=== PATIENT | male | born 1955 | race Caucasian/White ===

== ENCOUNTER 2017-11-14 18:44 | Inpatient (IN) ==
[2017-11-14] MEDS ORDERED: Ondansetron 4 MG/2 ML VIAL IVP ONE (19:03)
[2017-11-14] MEDS ORDERED: 0.9 % Sodium Chloride 1,000 ML IVC ONE (19:03)
[2017-11-14 19:29] LABS: Hemoglobin 10.1 g/dL (12.9-16.9)
[2017-11-14 19:30] LABS: Hematocrit 31.8 % (37.5-50.1); Mean Corpuscular HGB Conc 31.8 g/dL (31.6-35.5); Mean Corpuscular Hemoglobin 29.7 pg (28.0-33.3); Mean Corpuscular Volume 93.5 fL (83.0-100.0); Mean Platelet Volume 10.3 fL (9.4-12.4); Monocytes # 1.1 K/mcL (0.0-1.3); Platelet Count 177 K/mcL (140-400); Red Cell Distribution Width 14.6 % (11.5-14.5)
--- NOTE | 2017-11-14 19:32 | Emergency Department Note ---
Addendum entered and electronically signed by Jeremias Kaye DO 11/14/17 21:42: We did a repeat EKG this was done at 2141 review by myself and the attending shows normal sinus rhythm at a rate of 79, MO interval 180, QRS 96, QTC 425 with a leftward axis. No acute ST changes, no acute T-wave abnormalities, no signs of any hypertrophy or heart strain as his heart block, no signs of WPW/ Brugada syndrome. No old EKG to compare with. After looking back at previous troponins this is actually the best the troponin is ever been is previous one was 19.0 1 year ago. We are still treating him with aspirin. Addendum entered and electronically signed by Jeremias Kaye DO 11/14/17 21:35: We were called back and the troponin actually was 1.66 due to this we will start patient on aspirin. There were no EKG changes. Original Note: Disposition Clinical Impression: SIRS (systemic inflammatory response syndrome), CKD (chronic kidney disease), stage III Nausea & vomiting Qualifiers: Vomiting type: unspecified Vomiting Intractability: unspecified Qualified Code( s): R11.2 - Nausea with vomiting, unspecified Fever Qualifiers: Fever type: unspecified Qualified Code(s): R50.9 - Fever, unspecified Leukocytosis Qualifiers: Leukocytosis type: bandemia Qualified Code(s): D72.825 - Bandemia Disposition: Admitted As Inpatient Condition: Fair Time of Disposition: 21:34 Nausea/Vomiting/Diarrhea HPI - General Chief complaint: ED Nausea/Vomiting/Diarrhea Stated complaint: nausea, flulike symptoms Time Seen by Provider: 11/14/17 18:49 Source: patient, EMS Mode of arrival: EMS Limitations: no limitations Nursing Notes Reviewed: Yes Vital Signs Reviewed: Yes - History of Present Illness HPI Narrative: 62-year-old male presents to the emergency department complaining of nausea vomiting and fevers for one day. Patient does have history of COPD and diabetes. He has had part of his foot removed due to neuropathy. He currently has an ulcer on the bottom of his right foot that is in treated through wound care. He changes the bandages daily. They have noticed a green drainage coming out of it that is new that they do not remember. Family says that it is also foul smelling. Patient has had a fever of 102 maximum. They have been given him Tylenol which does bring the fever down. Patient presents here via EMS where he was hypoxic at 86% on room air when he arrived. Patient says that he has vomited a few times nonbilious nonbloody. They noted a fever 102. They have been given Tylenol. Patient otherwise having no complaints. Patient is not complaining of any chest pain, shortness of breath, neck pain, blurry vision , headache, back pain, abdominal pain, pain with urination, changes in bowel movements, pain or tingling in any arms or legs. He is having some generalized weakness as he feels like he is just really tired and cannot get up to move. Patient otherwise has no complaints. - Related Data Home Medications Medication Instructions Recorded Confirmed Allopurinol [Zyloprim] 100 mg PO DAILY 07/25/15 08/27/17 Citalopram Hydrobromide [Celexa] 10 mg PO HS 07/25/15 08/27/17 Ergocalciferol (VITAMIN D2) 50,000 unit PO QWEEK 07/25/15 08/27/17 [Drisdol (50,000 Unit)] Gabapentin [Neurontin] 300 mg PO BID 07/25/15 08/27/17 Insulin ASPART [NovoLOG] 8 - 22 unit SQ TIDWM 07/25/15 08/27/17 Insulin Glargine,Hum.rec.anlog 40 unit SQ BID 07/25/15 08/27/17 [Lantus Solostar] Multivitamin/Iron/Folic Acid 1 tab PO DAILY 07/25/15 08/27/17 [Centrum Complete Multivit Tab] Ranitidine HCl [Zantac] 150 mg PO BID 07/25/15 08/27/17 Albuterol Sulfate [Albuterol 2 puff IH Q4HR PRN 07/26/15 08/27/17 Inhaler] Hydrocodone/Acetaminophen [Hazen 2 tab PO BID PRN 07/26/15 08/27/17 5-325 Tablet] Budesonide/Formoterol 160/4.5 2 puff IH BID 07/24/16 08/27/17 [Symbicort 160/4.5] Hydralazine HCl 25 mg PO BID 07/24/16 08/27/17 Cyanocobalamin (B-12) [Vitamin B12] 1 ml IJ QMONTH 08/01/16 08/27/17 Cranberry Fruit Extract [Cranberry] 2,000 mg PO DAILY 08/29/16 08/27/17 Cyanocobalamin (Vitamin B-12) 2,500 mcg PO DAILY 08/29/16 08/27/17 [Vitamin B12] Metoprolol XL (24 HR) Succ [Toprol 25 mg PO DAILY 08/29/16 08/27/17 Xl] Darbepoetin [Aranesp] 40 mcg SQ Q2W 03/26/17 08/27/17 amLODIPine [Norvasc] 2.5 mg PO DAILY 10/08/17 10/08/17 Previous Rx's Medication Instructions Recorded Aspirin 81 mg PO DAILY tab.chew 08/22/16 Atorvastatin [Lipitor] 80 mg PO HS tablet 08/22/16 Ticagrelor [Brilinta] 90 mg PO BID tablet 08/22/16 Allergies Allergy/AdvReac Type Severity Reaction Status Date / Time acetaminophen Allergy See Verified 11/14/17 18:50 [From Darvocet-N] Comments Zolpidem [From Ambien] Allergy See Verified 11/14/17 18:50 Comments pregabalin [From Lyrica] AdvReac Unknown jittery, Verified 11/14/17 18:50 altered mental status propoxyphene AdvReac Unknown jittery, Verified 11/14/17 18:50 altered mental status Review of Systems: 10 point review of systems done and negative unless otherwise stated in history of present illness. All systems ED: reviewed and negative except as stated. Review of Systems: As Per HPI Past Medical History - Past Medical History Attestation: Yes The following information was validated with the patient. Medical history: Reports: arthritis, CHF, COPD, coronary artery disease, diabetes, hyperlipidemia, hypertension, myocardial infarction, peripheral artery disease, renal disease Surgical history: Reports: cholecystectomy, coronary bypass (CABG), orthopedic, other Psychiatric history: Reports: depression - Social History Smoking Status: Never smoker Smokeless Tobacco Status: No Alcohol use: Reports: none Drug use: Reports: none Physical Exam - General Limitations: no limitations General appearance: alert, in no apparent distress - Head Head exam: atraumatic, normocephalic, normal inspection - Eye Eye exam: Present: normal appearance, PERRL, EOMI - ENT ENT exam: normal exam, normal oropharynx, mucous membranes moist - Neck Neck exam: Present: normal inspection, full ROM, trachea midline - Chest Chest inspection: Present: normal inspection, symmetric chest wall rise - Respiratory Respiratory exam: Present: normal lung sounds bilaterally. Absent: respiratory distress, wheezes, accessory muscle use - Cardiovascular Cardiovascular exam: Present: regular rate, normal rhythm, normal heart sounds - Abdominal Exam Abdominal exam: Present: soft, Non-Tender, normal bowel sounds. Absent: tenderness, distention, guarding, rebound, rigidity - Expanded Lower Extremity Exam Knee exam: Present: normal inspection, full ROM Lower leg exam: Present: normal inspection, full ROM Ankle exam: Present: normal inspection, full ROM Foot/toe exam: Present: normal inspection, full ROM, other (Right foot is amputated there is a bandage that we uncovered that did show a healing ulcer there was no purulent drainage or any drainage coming out of it at this time. It was mildly swollen but no noticeable redness or tracking up the leg. It was warm to touch.) Neurovascular/Tendon exam: Present: normal capillary refill. Absent: pulse deficit, motor deficit, sensory deficit, tendon deficit - Back Exam Back exam: Present: normal inspection, full ROM. Absent: tenderness, CVA tenderness (R), CVA tenderness (L) - Neurological Exam Neurological exam: Present: alert, oriented X3 - Skin Skin exam: Present: warm, dry, intact, normal color Course Course Narrative: 62-year-old male presents to the emergency department complaining of fevers, nausea, vomiting. The patient did have a fever. He was mildly tachycardic so we started the sepsis protocol on him. Due to patient's kidney failure we did not give him 20 mix per K IV fluids. Did get a CMP, CBC, lactate with a tight lactate, blood cultures, chest x-ray, troponin, IV, 1 L IV fluids, Zofran, x- ray of the right foot, EKG. Patient is okay with this plan. Hold off on getting antibiotics since we find a source of the infection. Vital Signs Temperature 99.9 F H 11/14/17 18:46 Pulse Rate 89 11/14/17 18:46 Respiratory Rate 16 11/14/17 18:46 Blood Pressure 138/64 11/14/17 18:46 O2 Sat by Pulse Oximetry 96 11/14/17 18:46 Temperature 98.7 F 11/14/17 23:02 Pulse Rate 78 11/14/17 23:02 Respiratory Rate 16 11/14/17 23:02 Blood Pressure 126/63 11/14/17 23:02 O2 Sat by Pulse Oximetry 100 11/14/17 23:25 Oxygen Delivery Oxygen Delivery Room Air Nausea/Vomiting/Diarrhea - [facility] Narrative Medical decision making narrative: 62-year-old male presents emergency Department with fever, nausea vomiting as well as an ulcer in his right foot. X-ray did recommend possible MRI for osteomyelitis or further evaluation. Patient did have a leukocytosis with a left shift and bandemia. Due to this patient did meet Sirs criteria we did get blood cultures as well as a lactate which is not elevated. Patient did have elevated creatinine which is normal for him. The x-ray did show recommendation for possible osteomyelitis and recommended an MRI be done. Chest x-ray did show right-sided pleural effusion we will be treating him with antibiotics anyway some cases of pneumonia it is still Covered. There were no EKG changes no elevated troponin. We decided to admit the patient for further evaluation as well as start him on antibiotics we started him on Zosyn, Levaquin, vancomycin. Also given 1 L of fluids. Patient was admitted to the hospitalist service I spoke with the hospitalist Dr. Renteria agreed to admit the patient to their service. Patient is okay with this plan. She is admitted in stable condition. Chest X-Ray 11/14/17 19:00 IMPRESSION: 1. Persistent right pleural effusion with right basilar atelectasis. 2. Mildly enlarged cardiac silhouette. 3. No acute abnormality identified within the left lung. D/ / Jerman Valentine MD / Jerman Valentine MD Interpreting Provider: Jerman Valentine MD Foot X-Ray 11/14/17 19:03 IMPRESSION: 1. No radiographic evidence of osteomyelitis. Consider further assessment with dedicated MRI with contrast if there are continued clinical concerns. 2. Partial amputation of the foot. D/ / 11/14/2017 19:38:19 Reynold Edwards MD / Roberta Huntley Interpreting Provider: Reynold Edwards MD - Medical Records Medical records reviewed: Yes I reviewed the patient's medical records. - Lab Data Lab results reviewed: Yes I reviewed the patient's lab results. Result diagrams: 11/14/17 19:18 11/14/17 19:18 Lab Results 11/14/17 11/14/17 11/14/17 Range/Units 19:18 19:18 19:18 WBC 26.4 H D (4.3-11.1) K/mcL RBC 3.40 L (4.19-5.50) M/mcL Hgb 10.1 L (12.9-16.9) g/dL Hct 31.8 L (37.5-50.1) % MCV 93.5 (83.0-100.0) fL MCH 29.7 (28.0-33.3) pg MCHC 31.8 (31.6-35.5) g/dL RDW 14.6 H (11.5-14.5) % Plt Count 177 (140-400) K/mcL MPV 10.3 (9.4-12.4) fL Seg Neutrophils % 80.0 % Band Neutrophils % 12.0 H (0-4) % Lymphocytes % TNP Monocytes % 4.0 % Metamyelocytes % 2.0 H (0) % Myelocytes % 2.0 H (0) % Neutrophils # 24.3 H (1.6-8.9) K/mcL Lymphocytes # [employer] Monocytes # 1.1 (0.0-1.3) K/mcL Platelet Estimate Normal (Normal) ESR (0-10) mm/hr PT (9.4-12.1) Seconds INR APTT (26.0-36.0) Seconds Sodium 138 (136-145) mEq/L Potassium 3.7 (3.5-4.5) mEq/L Chloride 102 (98-109) mEq/L Carbon Dioxide 27 (19-29) mEq/L BUN 34 H (8-26) mg/dL Creatinine 2.85 H (0.72-1.25) mg/dL Est GFR ( Amer) 27 L (> 60) Est GFR (Non-Af Amer) 22 L (> 60) BUN/Creatinine Ratio 12 (6-26) Glucose 140 H (70-99) mg/dL Calculated Osmolality 296 (280-300) Lactic Acid 2.1 (0.5-2.2) mmol/L Calcium 9.7 (8.6-10.8) mg/dL Total Bilirubin 0.5 (0.2-1.2) mg/dL Direct Bilirubin (0.0-0.5) mg/dL Indirect Bilirubin (0.0-1.2) mg/dL AST 16 (5-34) Units/L ALT 16 (0-55) Units/L Alkaline Phosphatase 187 H (38-126) Units/L Troponin I (0-0.03) ng/mL C-Reactive Protein 114 H (Less than 5) mg/L Serum Total Protein 7.5 (6.0-8.3) g/dL Albumin 3.3 L (3.5-5.0) g/dL Globulin 4.2 H (2.4-3.5) g/dL Albumin/Globulin Ratio 0.8 L (1.1-2.2) Urine Color (Yellow) Urine Clarity (Clear) Urine pH (5.0-8.0) pH Units Ur Specific [place] (1.010-1.025) Urine Protein (Neg-Trace) mg/dL Urine Glucose (UA) (Normal) mg/dL Urine Ketones (Negative) mg/dL Urine Blood (Negative) Urine Nitrite (Negative) Urine Bilirubin (Negative) Urine Urobilinogen (Normal) mg/dL Ur Leukocyte Esterase (Negative) Urine Microscopic RBC (0-3) per hpf Urine Microscopic WBC (0-3) per hpf Ur Squamous Epith Cells (None-Few) per lpf Urine Bacteria (None-Few) per hpf Hyaline Casts (None-Few) per lpf Ur Culture Indicated? (NO) 11/14/17 11/14/17 11/14/17 Range/Units 19:18 19:35 20:56 WBC (4.3-11.1) K/mcL RBC (4.19-5.50) M/mcL Hgb (12.9-16.9) g/dL Hct (37.5-50.1) % MCV (83.0-100.0) fL MCH (28.0-33.3) pg MCHC (31.6-35.5) g/dL RDW (11.5-14.5) % Plt Count (140-400) K/mcL MPV (9.4-12.4) fL Seg Neutrophils % % Band Neutrophils % (0-4) % Lymphocytes % Monocytes % % Metamyelocytes % (0) % Myelocytes % (0) % Neutrophils # (1.6-8.9) K/mcL Lymphocytes # Monocytes # (0.0-1.3) K/mcL Platelet Estimate (Normal) ESR 124 H (0-10) mm/hr PT (9.4-12.1) Seconds INR APTT (26.0-36.0) Seconds Sodium (136-145) mEq/L Potassium (3.5-4.5) mEq/L Chloride (98-109) mEq/L Carbon Dioxide (19-29) mEq/L BUN (8-26) mg/dL Creatinine (0.72-1.25) mg/dL Est GFR ( Amer) (> 60) Est GFR (Non-Af Amer) (> 60) BUN/Creatinine Ratio (6-26) Glucose (70-99) mg/dL Calculated Osmolality (280-300) Lactic Acid (0.5-2.2) mmol/L Calcium (8.6-10.8) mg/dL Total Bilirubin 0.5 (0.2-1.2) mg/dL Direct Bilirubin 0.3 (0.0-0.5) mg/dL Indirect Bilirubin 0.2 (0.0-1.2) mg/dL AST 18 (5-34) Units/L ALT 12 (0-55) Units/L Alkaline Phosphatase 171 H (38-126) Units/L Troponin I (0-0.03) ng/mL C-Reactive Protein (Less than 5) mg/L Serum Total Protein 6.9 (6.0-8.3) g/dL Albumin 2.9 L (3.5-5.0) g/dL Globulin 4.0 H (2.4-3.5) g/dL Albumin/Globulin Ratio 0.7 L (1.1-2.2) Urine Color Yellow (Yellow) Urine Clarity Clear (Clear) Urine pH 6.0 (5.0-8.0) pH Units Ur Specific [place] 1.019 (1.010-1.025) Urine Protein >=300 H (Neg-Trace) mg/dL Urine Glucose (UA) Normal (Normal) mg/dL Urine Ketones Negative (Negative) mg/dL Urine Blood Negative (Negative) Urine Nitrite Negative (Negative) Urine Bilirubin Negative (Negative) Urine Urobilinogen Normal (Normal) mg/dL Ur Leukocyte Esterase Negative (Negative) Urine Microscopic RBC 5-15 H (0-3) per hpf Urine Microscopic WBC 0-3 (0-3) per hpf Ur Squamous Epith Cells Many H (None-Few) per lpf Urine Bacteria None Seen (None-Few) per hpf Hyaline Casts None Seen (None-Few) per lpf Ur Culture Indicated? NO (NO) 11/14/17 11/14/17 Range/Units 20:56 20:56 WBC (4.3-11.1) K/mcL RBC (4.19-5.50) M/mcL Hgb (12.9-16.9) g/dL Hct (37.5-50.1) % MCV (83.0-100.0) fL MCH (28.0-33.3) pg MCHC (31.6-35.5) g/dL RDW (11.5-14.5) % Plt Count (140-400) K/mcL MPV (9.4-12.4) fL Seg Neutrophils % % Band Neutrophils % (0-4) % Lymphocytes % Monocytes % % Metamyelocytes % (0) % Myelocytes % (0) % Neutrophils # (1.6-8.9) K/mcL Lymphocytes # Monocytes # (0.0-1.3) K/mcL Platelet Estimate (Normal) ESR (0-10) mm/hr PT 13.9 H (9.4-12.1) Seconds INR 1.3 APTT 30.2 (26.0-36.0) Seconds Sodium (136-145) mEq/L Potassium (3.5-4.5) mEq/L Chloride (98-109) mEq/L Carbon Dioxide (19-29) mEq/L BUN (8-26) mg/dL Creatinine (0.72-1.25) mg/dL Est GFR ( Amer) (> 60) Est GFR (Non-Af Amer) (> 60) BUN/Creatinine Ratio (6-26) Glucose (70-99) mg/dL Calculated Osmolality (280-300) Lactic Acid (0.5-2.2) mmol/L Calcium (8.6-10.8) mg/dL Total Bilirubin (0.2-1.2) mg/dL Direct Bilirubin (0.0-0.5) mg/dL Indirect Bilirubin (0.0-1.2) mg/dL AST (5-34) Units/L ALT (0-55) Units/L Alkaline Phosphatase (38-126) Units/L Troponin I 1.66 H* (0-0.03) ng/mL C-Reactive Protein (Less than 5) mg/L Serum Total Protein (6.0-8.3) g/dL Albumin (3.5-5.0) g/dL Globulin (2.4-3.5) g/dL Albumin/Globulin Ratio (1.1-2.2) Urine Color (Yellow) Urine Clarity (Clear) Urine pH (5.0-8.0) pH Units Ur Specific [place] (1.010-1.025) Urine Protein (Neg-Trace) mg/dL Urine Glucose (UA) (Normal) mg/dL Urine Ketones (Negative) mg/dL Urine Blood (Negative) Urine Nitrite (Negative) Urine Bilirubin (Negative) Urine Urobilinogen (Normal) mg/dL Ur Leukocyte Esterase (Negative) Urine Microscopic RBC (0-3) per hpf Urine Microscopic WBC (0-3) per hpf Ur Squamous Epith Cells (None-Few) per lpf Urine Bacteria (None-Few) per hpf Hyaline Casts (None-Few) per lpf Ur Culture Indicated? (NO) - Radiology Data Radiology results reviewed: Yes I reviewed the patient's radiology results. - EKG Data EKG attestation: Yes I reviewed and interpreted this EKG. EKG results narrative: EKG done at 1927 review myself and the attending shows sinus rhythm at a rate of 87, MO 161, QRS 12, QTc 440 with a leftward axis. There is no acute ST changes, no acute T-wave abnormalities, no signs of any heart strain or hypertrophy, no signs of heart block, no signs of WPW/Brugada syndrome. There is no old EKG to compare at this time. Attestation Statement - Attestation Attestation: I, Nba Esquivel, examined this patient and my medical decision-making was reviewed with the STATE HISTORICAL SOCIETY DIRECTOR/PA/Advanced Practice Nurse/Resident Physician. I agree with the documented findings, disposition and treatment plan as described except to the extent set forth below. 62-year-old male presents emergency Department with concerns of weakness, fatigue, nausea, generalized malaise. Patient was concerned about possible infection to the right distal lower extremity where patient has a history of amputation and infection. Patient was just cleared from wound care within the past few days however. Patient denies cough or abdominal pain or chest pain. Laboratory evaluation shows a significant elevation in the patient's white blood cells. He also has bandemia. Urinalysis does not show evidence of urinary tract infection. No obvious gas seen within the distal right lower extremity. No obvious osteomyelitis seen on x-ray. Chest x-ray shows a right pleural effusion. Troponin was elevated however patient has been significantly more elevated the past. EKG showed normal sinus rhythm with a rate of 87 with a poor baseline on initial EKG repeat EKG showed normal sinus rhythm with a rate of 79 without evidence STEMI. Patient started on antibiotics emergency department. He will be admitted to the hospital for further care and evaluation.
[2017-11-14 19:42] LABS: Albumin 3.3 g/dL (3.5-5.0); Albumin/Globulin Ratio 0.8 (1.1-2.2); Bilirubin,Total 0.5 mg/dL (0.2-1.2); Calcium 9.7 mg/dL (8.6-10.8); Globulin 4.2 g/dL (2.4-3.5); Potassium 3.7 mEq/L (3.5-4.5); Total Protein 7.5 g/dL (6.0-8.3)
[2017-11-14 19:46] LABS: Bilirubin,Urine Negative (Negative); Blood,Urine Negative (Negative); Clarity,Urine Clear (Clear); Color,Urine Yellow (Yellow); Glucose,Urine (UA) Normal (Normal); Ketones,Urine Negative (Negative); Leukocyte Esterase,Urine Negative (Negative); Nitrite,Urine Negative (Negative); Protein,Urine >=300 mg/dL (Neg-Trace); Specific Gravity,Urine 1.019 (1.010-1.025); Urobilinogen,Urine Normal (Normal)
[2017-11-14 19:48] LABS: Neutrophils # 24.3 K/mcL (1.6-8.9); Platelet Estimate Normal (Normal)
[2017-11-14 19:48] LABS: Bacteria,Urine None Seen per hpf (None-Few); Hyaline Casts,Urine None Seen per lpf (None-Few); Squamous Epithelial Cell,Urine Many per lpf (None-Few); WBC,Urine 0-3 per hpf (0-3)
[2017-11-14] MEDS ORDERED: Piperacillin/Tazobactam 3.375 GM in Water for inj. (sterile) 20 ML IVP ONE (20:29)
[2017-11-14] MEDS ORDERED: Levofloxacin 750 MG/150 ML 750 MG/150 ML BAG IVPB ONE (20:29)
[2017-11-14] MEDS ORDERED: Vancomycin 2,000 MG in D5% in Water 500 ML IVPB ONE (20:29)
[2017-11-14 21:22] LABS: Albumin 2.9 g/dL (3.5-5.0); Albumin/Globulin Ratio 0.7 (1.1-2.2); Bilirubin,Direct 0.3 mg/dL (0.0-0.5); Bilirubin,Indirect 0.2 mg/dL (0.0-1.2); Bilirubin,Total 0.5 mg/dL (0.2-1.2); Total Protein 6.9 g/dL (6.0-8.3)
[2017-11-14] MEDS ORDERED: Aspirin 81 MG TAB.CHEW PO ONE (21:42)
[2017-11-14] MEDS ORDERED: Naloxone 0.4 MG/ML INJ IVP PRN (22:14)
[2017-11-14] MEDS ORDERED: *HR* Morphine 2 MG/ML SYRINGE IVP PRN (22:14)
[2017-11-14] MEDS ORDERED: *HR* Promethazine 25 MG/ML VIAL IVP PRN (22:14)
[2017-11-14] MEDS ORDERED: *HR* Dextrose 50 % in Water (Syg) 50 ML SYRINGE IVP PRN (22:14)
[2017-11-14] MEDS ORDERED: Dextrose Gel 15 GM PO PRN ×2 (22:14)
[2017-11-14] MEDS ORDERED: D5% in Water 1,000 ML IVC PRN (22:14)
[2017-11-14] MEDS ORDERED: Ondansetron 4 MG/2 ML VIAL IVP PRN (22:14)
--- NOTE | 2017-11-14 22:30 | Internal Med History&Physical ---
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 Significant history of CAD including CABG in 2015 with reocclusion of SVG and 08/2016. Denies any chest pain, shortness of breath above baseline. However troponin is elevated at 1.66. Due to history of prior silent CO resulting in CABG cardiology was consulted. Recommendations are to place patient on heparin drip, EKGs from today sent to cardiology for further recommendations and evaluation Continue dual platelet therapy resume aspirin and statin and beta chelsie Check lipid panel, continue to trend troponins Continuous telemetry Cardio to see in the morning (3) Acute respiratory failure with hypoxia Current visit: Yes Status: Acute Presented today with acute hypoxia SPO2 85% on room air. Improved immediately with 3 L nasal cannula. Now maintains SPO2 at 94%. I am unsure as to whether or not this is a pneumonia but I am suspicious this may be a coronary event Patient is already on Levaquin and vancomycin and Zosyn for foot wound no additional antibiotics needed Chest x-ray reveals persistent right pleural effusion with right basilar atelectasis Continuous respiratory support, continue bronchodilators No need for steroids at this time as he is not wheezing (4) Nausea & vomiting Current visit: Yes Status: Acute 3-4 times starting today. Has not vomited since arrival to ED. Continue antiemetics. Does not appear acutely dehydrated, given 0.9% normal saline at 100 mL per hour for gentle rehydration Qualifiers: Vomiting type: unspecified Vomiting Intractability: unspecified Qualified Code(s): R11.2 - Nausea with vomiting, unspecified (5) Nonhealing surgical wound Current visit: Yes Status: Acute Nonhealing surgical wound on right stump following partial amputation. Patient reporting new green drainage. Cultures from last admission grew Acinetobacter. Presents today with leukocytosis with WBC 26.4 and leftward shift with bandemia. Appears to be septic. Foot wound is soft and fluid filled, loculated but not indurated. Obvious cellulitis noted. Foot x-ray reveals no osteo-myelitis Obtain wound cultures now Consult to wound care team Consult to podiatry-await further recommendations Manage pain with hydrocodone and morphine Qualifiers: Encounter type: initial encounter Qualified Code(s): T81.89XA - Other complications of procedures, not elsewhere classified, initial encounter (6) Cellulitis Current visit: Yes Status: Acute see plan above Qualifiers: Site of cellulitis: other site Qualified Code(s): L03.818 - Cellulitis of other sites (7) CKD (chronic kidney disease), stage III Current visit: Yes Status: Chronic History of CK V stage III. No significant change in serum creatinine. Recheck serum creatinine the morning (8) CAD (coronary artery disease) Current visit: Yes Status: Chronic Extensive CAD including stents and prior CABG and reoccluded SVG shortly after CABG 08/16 At that time is recommended to platelet therapy for at least 1 year Discussed risk factor modifications to reduce future events Resume beta chelsie, but aspirin, statin, brilinta Qualifiers: Coronary Disease-Associated Artery/Lesion type: [place] artery [place] vs. transplanted heart: [place] heart Associated angina: with unstable angina Qualified Code(s): I25.110 - Atherosclerotic heart disease of [place] coronary artery with unstable angina pectoris (9) Diabetes Current visit: Yes Status: Chronic Start low-dose sliding scale insulin coverage with before meals and at bedtime Accu-Cheks and diabetic diet. 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 No additional prophylaxis needed Internal Medicine - H&P: HPI Chief complaint: N/V with fevers for the last 24 hours and increasing drainage of RT stump Admitted From: Home Plans for Post Hospital Care: Home History of present illness: Mr. Levine is a 62 year old male with PMH of CHF, COPD, CAD, DM, HLD, HTN, CO , PVD, CKD. He presents today with a one-day history of nausea and non-bilious nonbloody vomiting and fevers. The patient reports that this morning he felt fatigued and weak. He noted he had a fever 103.0 which she has taken Tylenol and fever has decreased. Throughout the day reported that he has vomited 3-4 times. He was recently admitted to [facility] for wound care of a chronic wound on stump of right foot. He reports that he had a partial amputation of his right foot due to neuropathy. Since then he has had an ulcer that is slow to heal. Son is at bedside and reports he has noticed an increase in green drainage from the foot. He denies any chest pain, abdominal pain, diarrhea, dysuria. Just admitting to generalized weakness, nausea vomiting fevers and shortness of breath no worse than baseline. Workup in the ED revealed leukocytosis with WBCs 26.4 with left shift and bandemia. Past Med Surg Social Fam HX - Past Medical History Medical history: arthritis, CHF, COPD, coronary artery disease, diabetes, hyperlipidemia, hypertension, myocardial infarction, peripheral artery disease, renal disease Psychiatric history: depression - Past Surgical History Surgical History: cholecystectomy, coronary bypass (CABG), orthopedic, other - Social History Smoking Status: Never smoker Smokeless Tobacco Status: No Alcohol use: none Drug use: none - Family History Father Living Status: Hx Family Cardiac Disorders: Yes Hx Family Respiratory Disorders: Yes (COPD) Hx Family Cancer: No Hx Family GI Disorders: No Hx Family Endocrine Disorder: No Hx Family Neuromuscular Disorders: No Hx Family Neurologic Disorders: No Hx Family HEENT Disorders: No Hx Family Autoimmune Disorders: No Internal Medicine - H&P: Meds Allopurinol [Zyloprim] 100 mg PO DAILY 07/25/15 [History] Citalopram Hydrobromide [Celexa] 10 mg PO HS 07/25/15 [History] Ergocalciferol (VITAMIN D2) [Drisdol (50,000 Unit)] 50,000 unit PO QWEEK [History] Gabapentin [Neurontin] 300 mg PO BID 07/25/15 [History] Insulin ASPART [NovoLOG] 8 - 22 unit SQ TIDWM 07/25/15 [History] Insulin Glargine,Hum.rec.anlog [Lantus Solostar] 40 unit SQ BID 07/25/15 [ History] Multivitamin/Iron/Folic Acid [Centrum Complete Multivit Tab] 1 tab PO DAILY [History] Ranitidine HCl [Zantac] 150 mg PO BID 07/25/15 [History] Albuterol Sulfate [Albuterol Inhaler] 2 puff IH Q4HR PRN 07/26/15 [History] Hydrocodone/Acetaminophen [[place] 5-325 Tablet] 2 tab PO BID PRN 07/26/15 [ History] Budesonide/Formoterol 160/4.5 [Symbicort 160/4.5] 2 puff IH BID 07/24/16 [ History] Hydralazine HCl 25 mg PO BID 07/24/16 [History] Cyanocobalamin (B-12) [Vitamin B12] 1 ml IJ QMONTH 08/01/16 [History] Aspirin 81 mg PO DAILY tab.chew 08/22/16 [Rx] Atorvastatin [Lipitor] 80 mg PO HS tablet 08/22/16 [Rx] Ticagrelor [Brilinta] 90 mg PO BID tablet 08/22/16 [Rx] Cranberry Fruit Extract [Cranberry] 2,000 mg PO DAILY 08/29/16 [History] Cyanocobalamin (Vitamin B-12) [Vitamin B12] 2,500 mcg PO DAILY 08/29/16 [History ] Metoprolol XL (24 HR) Succ [Toprol Xl] 25 mg PO DAILY 08/29/16 [History] Darbepoetin [Aranesp] 40 mcg SQ Q2W 03/26/17 [History] amLODIPine [Norvasc] 2.5 mg PO DAILY 10/08/17 [History] 3 Allergy/AdvReac Type Severity Reaction Status Date / Time acetaminophen Allergy See Verified 11/14/17 18:50 [From Darvocet-N] Comments Zolpidem [From Ambien] Allergy See Verified 11/14/17 18:50 Comments pregabalin [From Lyrica] AdvReac Unknown jittery, Verified 11/14/17 18:50 altered mental status propoxyphene AdvReac Unknown jittery, Verified 11/14/17 18:50 altered mental status All Systems PM: A 10-system review of systems was performed and is negative for pertinent findings except as documented above in the HPI. - Constitutional Constitutional: no chills, no fever(s), no night sweats - EENT Eyes: no change in vision, no discharge, no pain, no photophobia Ears: no ear discharge, no ear pain, no tinnitus Nose, mouth and throat: no dysphagia, no nasal discharge, no neck pain, no sore throat - Cardiovascular Cardiovascular ROS IM: no chest pain, no diaphoresis, no dyspnea, no lightheadedness, no palpitations, no syncope - Respiratory Respiratory: no cough, no dyspnea, no wheezing, no excessive phlegm production - Gastrointestinal Gastrointestinal: nausea, vomiting, no abdominal pain, no diarrhea, no hematemesis, no hematochezia, no melena - Musculoskeletal Musculoskeletal ROS IM: no numbness, no tingling - Integumentary Integumentary IM: as per HPI, non-healing lesions, no rash, no unusual bruising - Neurological Neurological ROS: no confusion, no convulsions, no focal weakness, no numbness, no tingling, no tremor(s) - Hematologic/Lymphatic Hematologic/Lymphatic: no easy bruising - Constitutional Vitals: Temp Pulse Resp BP Pulse Ox 99.9 F H 89 18 127/63 96 11/14/17 18:46 11/14/17 18:46 11/14/17 21:23 11/14/17 21:23 11/14/17 18:46 General appearance: Present: A&O X 2, no acute distress, obese - Head Head exam: Present: atraumatic, normocephalic - Neck Neck exam general surgery: Present: supple, trachea midline. Absent: lymphadenopathy - Respiratory Respiratory exam: Present: decreased breath sounds, CTAB, prolonged expiratory phase. Absent: accessory muscle use, rales, rhonchi, wheezes, tachypnea - Cardiovascular Cardiovascular exam: Present: RRR, +S1, +S2. Absent: diastolic murmur, gallop, rubs, systolic murmur - GI/Abdominal GI/Abdominal exam: Present: normal bowel sounds, soft, no peritoneal signs. Absent: distended, tenderness - Extremities Exam Extremities exam: Absent: calf tenderness, cyanotic, pedal edema - Expanded Lower Extremities Exam 1 - STAGE 3 ULCER WITH MINIMAL SERROUS DRAINAGE. - Neurological Exam Neurological exam: Present: alert. Absent: facial droop, speech deficit Internal Med - H&P Results - Labs CBC & Chem 7: 11/14/17 19:18 11/14/17 19:18 - EKG Data -: EKG Interpreted by Myself EKG shows normal: sinus rhythm Rate: normal - EKG Data Prior EKG available for review: yes When compared to previous EKG: there is no significant change EKG comments: 11/14/17 23:08 Normal sinus rhythm rate of 87 - Diagnostic Studies Other Images Status: image reviewed by me Additional comments: No osteomyelitis Chest x-ray Status: image reviewed by me Additional comments: Right pleural effusion with right basilar atelectasis <Andrew Johns - Last Filed: 11/15/17 03:11> Date of Encounter: 11/14/17 Internal Medicine - H&P: HPI History of present illness: Mr. Levine is a 62 year old male All Systems PM: A 10-system review of systems was performed and is negative for pertinent findings except as documented above in the HPI. - Constitutional Vitals: Temp Pulse Resp BP Pulse Ox 98.7 F 78 16 126/63 100 11/14/17 23:02 11/14/17 23:02 11/14/17 23:02 11/14/17 23:02 11/14/17 23:25 Internal Med - H&P Results - Labs CBC & Chem 7: 11/14/17 19:18 11/14/17 19:18 - Attending Attestation I have personally performed a face to face evaluation on this patient. I have reviewed and agree with the care plan provided by MAIRA May . History and Exam by me shows: Mr. Levine is a 62 year old male with PMH of CHF, COPD, CAD, DM, HLD, HTN, CO , PVD, CKD. He presents today with a one-day history of nausea and non-bilious non bloody vomiting and fevers. The patient reports that this morning he felt fatigued and weak. He noted he had a fever 103.0 which she has taken Tylenol and fever has decreased. Throughout the day reported that he has vomited 3-4 times. He does have mild erythema in Rt leg and non healing ulcer over Rt foot stump..He denied any CP/ SOB Gen: A, A, O x 3 Chest: Diminished BS b/l, no crackles, no rales Heart: S1 S2 + RRR Ext: soft, loculated fluid collection over Rt foot stump a/p 1. Sepsis with Rt foot abscess and Rt leg cellulites 2. Non healing ulcer over Rt leg Empirical abx Levaquin + Zosyn + Vanco Will consult community support associate in AM 3. Acute initial NSTEMI No acute ischemic EKG changes Troponin significantly elevated mostly demand ischemia with sepsis Card Dr. Shirley requested to start him on heparin gtt 4. CKD-3 stable
[2017-11-14] MEDS ORDERED: Vancomycin 2,000 MG in D5% in Water 250 ML IVPB SCH (23:00)
[2017-11-14] MEDS ORDERED: *HR* Heparin 5,000 UNIT/ML VIAL IVP PRN (23:02)
[2017-11-14] MEDS ORDERED: *HR* Heparin 5,000 UNIT/ML VIAL IVP ONE (23:02)
[2017-11-14 23:20] LABS: INR 1.3; Prothrombin Time 13.9 Seconds (9.4-12.1)
[2017-11-14 23:23] LABS: Activated Partial Thrombo Time 30.2 Seconds (26.0-36.0)
[2017-11-15] MEDS ORDERED: Piperacillin/Tazobactam 3.375 GM in D5% in Water (Mini-Bag+) 100 ML IVPB SCH
[2017-11-15] MEDS ORDERED: Piperacillin/Tazobactam 3.375 GM/200 ML BAG IVPB SCH
[2017-11-15] MEDS: 0.9 % Sodium Chloride 1,000 ML IVC SCH (00:28)
[2017-11-15] MEDS: Heparin 25,000 UNIT/500 ML D5W 25,000 UNIT/500 ML BAG IVC SCH ×2 (01:01→23:14)
[2017-11-15] MEDS: Insulin LISPRO 300 UNITS/3 ML VIAL SQ SCH ×5 (01:19→22:30)
[2017-11-15 04:19] LABS: Mean Platelet Volume 10.6 fL (9.4-12.4)
[2017-11-15 04:20] LABS: Hematocrit 28.7 % (37.5-50.1); Mean Corpuscular HGB Conc 31.4 g/dL (31.6-35.5); Mean Corpuscular Hemoglobin 29.6 pg (28.0-33.3); Mean Corpuscular Volume 94.4 fL (83.0-100.0); Platelet Count 165 K/mcL (140-400); Red Blood Count 3.04 M/mcL (4.19-5.50); Red Cell Distribution Width 14.7 % (11.5-14.5)
[2017-11-15 04:38] LABS: Calcium 8.9 mg/dL (8.6-10.8); Potassium 4.3 mEq/L (3.5-4.5)
[2017-11-15 04:40] LABS: Chol/HDL Ratio 3.7 (0-4.9)
[2017-11-15 04:54] LABS: Band Neutrophils % 12.7 % (0-4); Lymphocytes # 0.9 K/mcL (0.6-4.6); Lymphocytes % 3.6 %; Monocytes # 1.4 K/mcL (0.0-1.3); Monocytes % 5.5 %; Neutrophils # 23.2 K/mcL (1.6-8.9); Platelet Estimate Normal (Normal); Segmented Neutrophils % 78.2 %
[2017-11-15 04:55] LABS: Polychromasia 1+ (Not Present)
[2017-11-15] MEDS: Metoprolol XL (24 HR) Succ 25 MG TAB.ER.24H PO SCH (08:17)
[2017-11-15] MEDS: hydrALAZINE 25 MG TABLET PO SCH ×2 (08:17→22:29)
[2017-11-15] MEDS: Gabapentin 300 MG CAPSULE PO SCH ×2 (08:18→22:29)
[2017-11-15] MEDS: amLODIPine 5 MG TABLET PO SCH (08:18)
[2017-11-15] MEDS: Cyanocobalamin (B-12) 1,000 MCG TABLET PO SCH (08:19)
[2017-11-15] MEDS: Famotidine 20 MG TABLET PO SCH ×2 (08:19→17:33)
[2017-11-15] MEDS: Multivit/Ca/Min/Fe/FA 1 TAB TABLET PO SCH (08:21)
[2017-11-15] MEDS: Vancomycin 1,500 MG in D5% in Water 250 ML IVPB SCH (08:24)
[2017-11-15] MEDS: *HR* Heparin 5,000 UNIT/ML VIAL IVP PRN ×2 (08:31→17:32)
[2017-11-15] MEDS: Budesonide/Formoterol 160/4.5 MDI IH SCH ×2 (10:27→21:53)
--- NOTE | 2017-11-15 11:18 | Cardiology Consult Note ---
Date of Encounter: 11/15/17 Time of Encounter: 11:13 Assessment and Plan (1) CAD (coronary artery disease) Current Visit: Yes Status: Chronic Qualifiers: Coronary Disease-Associated Artery/Lesion type: [place] artery [place] vs. transplanted heart: [place] heart Associated angina: with unstable angina Qualified Code(s): I25.110 - Atherosclerotic heart disease of [place] coronary artery with unstable angina pectoris (2) NSTEMI (non-ST elevated myocardial infarction) Current Visit: Yes Status: Suspected NSTEMI in the setting of a wound infection, possible sepsis, and CKD. Known history of CAD, prior CABG, prior PCI. Patient currently chest pain-free. Given his overall medical condition, patient is not currently an ideal candidate for a cardiac catheterization. I would recommend that we continue ACS therapy as we continue to treat his other medical conditions, especially the infection. We discussed the possibility of a cardiac catheterization prior to discharge and patient would be agreeable. For now, continue current supportive medical therapy. Should his cardiac condition change, i.e. developed significant symptoms or ECG changes, then a more urgent catheterization would be considered. Recommend continue aspirin, Brilinta, atorvastatin, metoprolol, and heparin. Check TTE. Thank you for this consultation. Please call with any questions or concerns. Gianni Shirley DO, FACC Discussion w patient/family: The assessment and plan as outlined above was discussed with the patient and/or family members who expressed understanding and agreement. All questions were answered. Thank you for involving us in the care of your patient. Please call with any questions. History of Present Illness Consult date: 11/15/17 Requesting physician: Javed Greco Consult reason: NSTEMI Chief complaint: Foot ulcer infection History of present illness: Mr. Levine is a 62 year old male with a history of CAD, prior CABG, prior PCI in 2016 presented with complaints of vomiting, fatigue/weakness, and fevers. Temperature reportedly 103.0, which improved with Tylenol. Increased drainage from right foot ulcer per reports. Leukocytosis, bandemia noted. Patient being treated for infection, possible sepsis. Troponin elevation noted, 1.66, 4.61, and 5.88. Upon my evaluation, patient was entirely chest pain-free sitting upright at his bedside. He denied unusual dyspnea or discomfort. ECG is reviewed, no acute ST or T-wave changes. Previous cardiac testing: TTE 11/13/2016: LVEF 60%. Mild concentric LVH. Moderate diastolic dysfunction. RV was grossly normal in size and function. No significant valvular dysfunction. RVSP was not well obtained. Technically suboptimal study due to poor windows. [facility] 08/12/2016: Left main 99% stenosis (BRUNA placed). LAD 99% stenosis. Circumflex 50-60% proximal stenosis. Ramus 60-70% stenosis. RCA proximal 80% stenosis, distal 70% stenosis. ESPINAL to mid LAD patent. SVG to RPDA patent. SVG to ramus occluded. EF 45%. Past Med Surg Social Fam HX - Past Medical History Medical history: arthritis, CHF, COPD, coronary artery disease, diabetes, hyperlipidemia, hypertension, myocardial infarction, peripheral artery disease, renal disease Psychiatric history: depression - Past Surgical History Surgical History: cholecystectomy, coronary bypass (CABG), orthopedic, other - Social History Smoking Status: Never smoker Smokeless Tobacco Status: No Alcohol use: none Drug use: none - Family History Father Living Status: Hx Family Cardiac Disorders: Yes Hx Family Respiratory Disorders: Yes (COPD) Hx Family Cancer: No Hx Family GI Disorders: No Hx Family Endocrine Disorder: No Hx Family Neuromuscular Disorders: No Hx Family Neurologic Disorders: No Hx Family HEENT Disorders: No Hx Family Autoimmune Disorders: No Medications and Allergies Allopurinol [Zyloprim] 100 mg PO DAILY 07/25/15 [History] Citalopram Hydrobromide [Celexa] 10 mg PO HS 07/25/15 [History] Ergocalciferol (VITAMIN D2) [Drisdol (50,000 Unit)] 50,000 unit PO QWEEK [History] Gabapentin [Neurontin] 300 mg PO BID 07/25/15 [History] Insulin ASPART [NovoLOG] 8 - 22 unit SQ TIDWM 07/25/15 [History] Insulin Glargine,Hum.rec.anlog [Lantus Solostar] 40 unit SQ BID 07/25/15 [ History] Multivitamin/Iron/Folic Acid [Centrum Complete Multivit Tab] 1 tab PO DAILY [History] Ranitidine HCl [Zantac] 150 mg PO BID 07/25/15 [History] Albuterol Sulfate [Albuterol Inhaler] 2 puff IH Q4HR PRN 07/26/15 [History] Hydrocodone/Acetaminophen [[place] 5-325 Tablet] 2 tab PO BID PRN 07/26/15 [ History] Budesonide/Formoterol 160/4.5 [Symbicort 160/4.5] 2 puff IH BID 07/24/16 [ History] Hydralazine HCl 25 mg PO BID 07/24/16 [History] Cyanocobalamin (B-12) [Vitamin B12] 1 ml IJ QMONTH 08/01/16 [History] Aspirin 81 mg PO DAILY tab.chew 08/22/16 [Rx] Atorvastatin [Lipitor] 80 mg PO HS tablet 08/22/16 [Rx] Ticagrelor [Brilinta] 90 mg PO BID tablet 08/22/16 [Rx] Cranberry Fruit Extract [Cranberry] 2,000 mg PO DAILY 08/29/16 [History] Cyanocobalamin (Vitamin B-12) [Vitamin B12] 2,500 mcg PO DAILY 08/29/16 [History ] Metoprolol XL (24 HR) Succ [Toprol Xl] 25 mg PO DAILY 08/29/16 [History] Darbepoetin [Aranesp] 40 mcg SQ Q2W 03/26/17 [History] amLODIPine [Norvasc] 2.5 mg PO DAILY 10/08/17 [History] 3 Allergy/AdvReac Type Severity Reaction Status Date / Time acetaminophen Allergy See Verified 11/14/17 18:50 [From Darvocet-N] Comments Zolpidem [From Ambien] Allergy See Verified 11/14/17 18:50 Comments pregabalin [From Lyrica] AdvReac Unknown jittery, Verified 11/14/17 18:50 altered mental status propoxyphene AdvReac Unknown jittery, Verified 11/14/17 18:50 altered mental status All Systems Review: A 10-system review of systems was performed and is negative for pertinent findings except as documented above in the HPI. - Constitutional Constitutional: chills, fever(s), weakness - Cardiovascular Cardiovascular: as per HPI Physical Examination Vital Signs, Last 4 Hours Temp Pulse Resp BP Pulse Ox 11/15/17 10:54 98.3 F 64 18 121/71 96 11/15/17 08:44 97 General: Conversant, No Apparent Distress HEENT: Atraumatic, Normocephaly, Mucus Membranes Moist Neck: Normal carotid pulses, Other (Unable to appreciate JVD due tox) Cardiac: Reg Rate and Rhythm, Normal S1 and S2, No Murmur, Other (Distant.) Lungs: Normal Breath Sounds, No Wheeze, Rales, Rhonchi, Other (Shallow, but clear) Neuro: Alert and responsive Abdomen: Soft, Non-Tender, Other (Obese) Skin: No rashes noted on visualized skin Musculoskeletal: No Chest Wall Tenderness Extremities: Other (Erythema noted to lower extremities. Bandage noted.) Results 11/15/17 03:20 11/15/17 03:20 Lab Results 11/15/17 11/15/17 11/15/17 03:20 03:20 03:20 WBC 25.5 H Hgb 9.0 L Hct 28.7 L Plt Count 165 APTT Sodium 136 Potassium 4.3 Chloride 102 Carbon Dioxide 25 BUN 39 H Creatinine 3.04 H Glucose 177 H Calcium 8.9 Troponin I 4.61 H* 11/15/17 11/15/17 07:01 09:57 WBC Hgb Hct Plt Count APTT 51.8 H D Sodium Potassium Chloride Carbon Dioxide BUN Creatinine Glucose Calcium Troponin I 5.88 H* - Imaging and Cardiology Echo: report reviewed Cardiac cath: report reviewed - EKG Interpretation EKG results cardiology: personally reviewed Consult Discharge Plan - Plan Referrals: Lala Beatty MD [Primary Care Provider] -
[2017-11-15] MEDS: Insulin DETEMIR 100 UNIT/ML X5UNITS SQ SCH ×2 (11:48→22:31)
[2017-11-15] MEDS: *HR* HYDROcodone/Acet 5/325 mg TABLET PO PRN ×2 (12:22→22:29)
[2017-11-15] MEDS: Aspirin 81 MG TAB.CHEW PO SCH (12:37)
[2017-11-15] MEDS: Piperacillin/Tazobactam 3.375 GM/200 ML BAG IVPB SCH (12:37)
[2017-11-15] MEDS: *HR* Ticagrelor 90 MG TABLET PO SCH ×2 (12:37→17:01)
--- NOTE | 2017-11-15 15:42 | Internal Med Progress Note ---
<Jeremy Kennedy - Last Filed: 11/15/17 16:02> Date of Encounter: 11/15/17 Time of Encounter: 15:00 - Assessment and plan (1) NSTEMI (non-ST elevated myocardial infarction) Current Visit: Yes Status: Suspected Assessment and plan: NSTEMI in the setting of a wound infection, possible sepsis, and CKD. -Known history of CAD, prior CABG, prior PCI. -Patient currently chest pain-free. -Not currently an ideal candidate for a cardiac cath -PER CARDIOLOGY: Recommend continue aspirin, Brilinta, atorvastatin, metoprolol , and heparin. -Check TTE. (2) Acute respiratory failure with hypoxia Current Visit: Yes Status: Acute Assessment and plan: Presented with acute hypoxia SPO2 85% on room air. Improved immediately with 3 L NC. Now maintains SPO2 at 94%. -Patient is already on Levaquin and vancomycin and Zosyn for foot wound no additional antibiotics needed -CXR: persistent R pleural effusion with R basilar atelectasis -Continuous respiratory support, continue bronchodilators (3) Nonhealing surgical wound Current Visit: Yes Status: Acute Assessment and plan: Nonhealing surgical wound on right stump following partial amputation w/ new green drainage. -Cultures from last admission grew Acinetobacter. -Presented with leukocytosis with WBC 26.4 and leftward shift with bandemia. 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 Creatinine today is 3.04 - Constitutional Vitals: Temp Pulse Resp BP Pulse Ox 98.3 F 64 18 121/71 96 11/15/17 10:54 11/15/17 10:54 11/15/17 10:54 11/15/17 10:54 11/15/17 10:54 General appearance: Present: A&O X 2, no acute distress, obese - Head Head exam: Present: atraumatic, normocephalic - Eye Eye exam: Present: PERRL, conjuntiva pink, sclera anicteric Pupils: Present: PERRL - Neck Neck exam general surgery: Present: supple, trachea midline. Absent: lymphadenopathy - Respiratory Respiratory exam: Present: CTAB. Absent: accessory muscle use, rales, rhonchi, wheezes - Cardiovascular Cardiovascular exam: Present: RRR, +S1, +S2. Absent: diastolic murmur, gallop, rubs, systolic murmur - Extremities Exam Extremities exam: Present: warm, radial pulses palpable and symmetrical. Absent : calf tenderness, cyanotic, pedal edema - Skin Skin exam: Present: dry, intact Internal Medicine: Result - Labs CBC & Chem 7: 11/15/17 03:20 11/15/17 03:20 Labs: Short CBC 11/15/17 Range/Units 03:20 WBC 25.5 H (4.3-11.1) K/mcL Hgb 9.0 L (12.9-16.9) g/dL Hct 28.7 L (37.5-50.1) % Plt Count 165 (140-400) K/mcL Neutrophils # 23.2 H (1.6-8.9) K/mcL BMP 11/15/17 03:20 Sodium 136 Potassium 4.3 Chloride 102 Carbon Dioxide 25 BUN 39 H Creatinine 3.04 H Glucose 177 H Calcium 8.9 Cardiac Enzymes 11/15/17 11/15/17 Range/Units 03:20 09:57 Troponin I 4.61 H* 5.88 H* (0-0.03) ng/mL - ABG Interpretation ABG results: PT/INR, D-dimer PT 13.9 Seconds (9.4-12.1) H 11/14/17 20:56 - VTE Reasons for not Prescribing Prophylaxis: Not indicated-Anticoagulated or INR therapeutic Consult Discharge Plan - Plan Referrals: Lala Beatty MD [Primary Care Provider] - <Javed Greco H - Last Filed: 11/15/17 17:08> Date of Encounter: 11/15/17 - Constitutional Vitals: Temp Pulse Resp BP Pulse Ox 98.3 F 64 18 121/71 96 11/15/17 10:54 11/15/17 10:54 11/15/17 10:54 11/15/17 10:54 11/15/17 10:54 Internal Medicine: Result - Labs CBC & Chem 7: 11/15/17 03:20 11/15/17 03:20 Labs: Short CBC 11/15/17 Range/Units 03:20 WBC 25.5 H (4.3-11.1) K/mcL Hgb 9.0 L (12.9-16.9) g/dL Hct 28.7 L (37.5-50.1) % Plt Count 165 (140-400) K/mcL Neutrophils # 23.2 H (1.6-8.9) K/mcL BMP 11/15/17 03:20 Sodium 136 Potassium 4.3 Chloride 102 Carbon Dioxide 25 BUN 39 H Creatinine 3.04 H Glucose 177 H Calcium 8.9 Cardiac Enzymes 11/15/17 11/15/17 Range/Units 03:20 09:57 Troponin I 4.61 H* 5.88 H* (0-0.03) ng/mL - ABG Interpretation ABG results: PT/INR, D-dimer PT 13.9 Seconds (9.4-12.1) H 11/14/17 20:56 - Impressions Impressions Foot MRI 11/15/17 12:55 IMPRESSION: Remote postsurgical changes status post amputation of the midfoot and forefoot at the level of the navicular. Nonspecific mild subcutaneous edema with possible shallow soft tissue ulcerations along the plantar medial foot and lateral hindfoot. Findings may represent cellulitis. No evidence of abscess. No evidence of osteomyelitis. Remote bone infarct of the talus. No acute marrow signal abnormality. D/ / 11/15/2017 16:10:14 Berny Leo MD / lobo Interpreting Provider: Berny Leo MD - Attending Attestation Sepsis secondary to acute right lower extremity cellulitis and foot surgical wound infection Grew Acinetobacter in the past sensitive to Levaquin Continue Levaquin, continue vancomycin day 2 Discontinue Zosyn Sent cultures, podiatry consult History of diastolic CHF with right sided pleural effusion Resume Bumex Discontinue IV fluids History of chronic kidney disease stage IV I examined this patient and my medical decision-making was reviewed with the Resident Physician. I agree with the documented findings, disposition and treatment plan as described except to the extent set forth below.
[2017-11-15] MEDS: Bumetanide 1 MG/4 ML VIAL IVP SCH (17:52)
[2017-11-15] MEDS: Levofloxacin 500 MG/100 ML 500 MG/100 ML BAG IVPB SCH (17:54)
--- NOTE | 2017-11-15 22:19 | Podiatry Progress Note ---
Date of Encounter: 11/15/17 Time of Encounter: 12:16 - Assessment and Plan (1) Cellulitis Current Visit: Yes Status: Acute At this time an MRI will be ordered to evaluate for any deep tissue abscess/ septic joint/osteomyelitis. The MRI was received this evening which demonstrates no deep abscess or osteomyelitis. Currently due to the negative MRI we will continue antibiotics and not perform any surgical intervention at this time. We will continue to monitor the foot for any increasing signs of infection and consider surgical intervention at that time. Normal dressing changes and monitoring with IV antibiotics should be sufficient at this point. Qualifiers: Site of cellulitis: other site Qualified Code(s): L03.818 - Cellulitis of other sites Subjective Principal diagnosis: Right foot cellulitis Interval history: The patient presented to the hospital and relates that his right leg recently healed and then he noticed redness and infection. Patient relates that he is concerned about new bone infection. Patient denies any nausea, vomiting, fever , chills, shortness of breath, chest pain, or calf pain. Patient relates that the redness seems to be going up his leg. Objective - Vital Signs Vital Signs: Vital Signs Temp Pulse Resp BP Pulse Ox 11/15/17 19:21 98.6 F 80 16 153/69 97 11/15/17 17:40 98.2 F 75 18 143/65 97 11/15/17 10:54 98.3 F 64 18 121/71 96 11/15/17 10:27 14 99 11/15/17 08:44 97 11/15/17 06:40 98.7 F 67 18 129/66 97 11/15/17 03:45 98.5 F 68 18 123/72 100 11/14/17 23:25 100 11/14/17 23:02 98.7 F 78 16 126/63 99 Intake and Output 11/15/17 11/15/17 11/15/17 07:59 15:59 23:59 Intake Total 850 / 850 640 / 640 1381 / 1381 Output Total 0 / 0 Balance 850 / 850 640 / 640 1381 / 1381 Intake: IV Fluids 850 / 850 400 / 400 1381 / 1381 0.9 % Sodium Chloride 1,000 ML 1000 / 1000 @ 100 mls/hr IVC .Q10H [facility] Rx#: [id number] Heparin 25,000 UNIT/500 ML D5W 150 / 150 181 / 181 25,000 unit In 500 ml @ 6.3 UNIT/KG/HR 20.097 mls/hr IVC . Q24H [facility] Rx#:[id number] Levaquin Premix 750mg/150 mL 150 / 150 750 mg In 150 ml @ 100 mls/hr IVPB ONCE ONE Rx#:[id number] Zosyn Premix 3.375 GM/200 ML 3. 200 / 200 200 / 200 375 gm In 200 ml @ 50 mls/hr IVPB Q8HR [facility] Rx#:[id number] Vancocin 1,500 MG In Dextrose 5 250 / 250 % 250 ML @ 166.667 mls/hr IVPB Q24H [facility] Rx#:[id number] Vancocin 2,000 MG In Dextrose 5 500 / 500 % 500 ML @ 334.014 mls/hr IVPB ONCE ONE Rx#:[id number] Oral 0 / 0 240 / 240 Output: Urine 0 / 0 Other: Meal Lunch Percent of Meal Consumed 100% # Voids 2 Blood Glucose* 187 210 207 - Exam Exam: Capillary fill time intact to the right lower extremity/foot. Prior amputation distal to the mid foot noted. Mild erythema noted on the lateral aspect of the right foot/stump. Small open wound/fissure noted on the lateral aspect of the right foot. Sensation diminished consistent with peripheral neuropathy. - Lab Result Diagrams: 11/15/17 03:20 11/15/17 03:20 Labs: Abnormal lab results WBC 25.5 K/mcL (4.3-11.1) H 11/15/17 03:20 RBC 3.04 M/mcL (4.19-5.50) L 11/15/17 03:20 Hgb 9.0 g/dL (12.9-16.9) L 11/15/17 03:20 Hct 28.7 % (37.5-50.1) L 11/15/17 03:20 MCHC 31.4 g/dL (31.6-35.5) L 11/15/17 03:20 RDW 14.7 % (11.5-14.5) H 11/15/17 03:20 Band Neutrophils % 12.7 % (0-4) H 11/15/17 03:20 Metamyelocytes % 2.0 % (0) H 11/14/17 19:18 Myelocytes % 2.0 % (0) H 11/14/17 19:18 Neutrophils # 23.2 K/mcL (1.6-8.9) H 11/15/17 03:20 Monocytes # 1.4 K/mcL (0.0-1.3) H 11/15/17 03:20 Polychromasia 1+ (Not Present) A 11/15/17 03:20 ESR 124 mm/hr (0-10) H 11/14/17 19:18 PT 13.9 Seconds (9.4-12.1) H 11/14/17 20:56 APTT 52.2 Seconds (26.0-36.0) H 11/15/17 14:28 BUN 39 mg/dL (8-26) H 11/15/17 03:20 Creatinine 3.04 mg/dL (0.72-1.25) H 11/15/17 03:20 Est GFR ( Amer) 25 (> 60) L 11/15/17 03:20 Est GFR (Non-Af Amer) 21 (> 60) L 11/15/17 03:20 Glucose 177 mg/dL (70-99) H 11/15/17 03:20 POC Glucose 192 (58-89) H 11/15/17 01:07 Alkaline Phosphatase 171 Units/L (38-126) H 11/14/17 20:56 Troponin I 5.88 ng/mL (0-0.03) H* 11/15/17 09:57 C-Reactive Protein 114 mg/L (Less than 5) H 11/14/17 19:18 Albumin 2.9 g/dL (3.5-5.0) L 11/14/17 20:56 Globulin 4.0 g/dL (2.4-3.5) H 11/14/17 20:56 Albumin/Globulin Ratio 0.7 (1.1-2.2) L 11/14/17 20:56 HDL Cholesterol 26 mg/dL (40-59) L 11/15/17 03:20 Urine Protein >=300 mg/dL (Neg-Trace) H 11/14/17 19:35 Urine Microscopic RBC 5-15 per hpf (0-3) H 11/14/17 19:35 Ur Squamous Epith Cells Many per lpf (None-Few) H 11/14/17 19:35 - VTE Reasons for not Prescribing Prophylaxis: Not indicated-Anticoagulated or INR therapeutic Consult Discharge Plan - Plan Referrals: Lala Beatty MD [Primary Care Provider] -
[2017-11-15] MEDS ORDERED: Chloraseptic Spray 177 ML BOTTLE MM PRN (23:48)
[2017-11-16 00:42] LABS: Hematocrit 27.3 % (37.5-50.1); Hemoglobin 8.8 g/dL (12.9-16.9); Immature Platelets 5.2 % (1.1-6.1); Mean Corpuscular HGB Conc 32.2 g/dL (31.6-35.5); Mean Corpuscular Hemoglobin 30.2 pg (28.0-33.3); Mean Corpuscular Volume 93.8 fL (83.0-100.0); Mean Platelet Volume 10.5 fL (9.4-12.4); Red Blood Count 2.91 M/mcL (4.19-5.50); Red Cell Distribution Width 14.8 % (11.5-14.5)
[2017-11-16 00:58] LABS: Potassium 4.1 mEq/L (3.5-4.5)
[2017-11-16] MEDS: *HR* Heparin 5,000 UNIT/ML VIAL IVP PRN (00:59)
[2017-11-16] MEDS ORDERED: Perflutren Lipid Microsphere 1.3 ML in 0.9 % Sodium Chloride 8.7 ML IVP ONE (07:20)
[2017-11-16] MEDS: Insulin LISPRO 300 UNITS/3 ML VIAL SQ SCH ×4 (07:34→20:19)
[2017-11-16] MEDS: 0.9 % Sodium Chloride 1,000 ML IVC SCH ×3 (07:34→21:21)
--- NOTE | 2017-11-16 09:55 | Internal Med Progress Note ---
<Jeremy Kennedy - Last Filed: 11/16/17 09:52> Date of Encounter: 11/16/17 Time of Encounter: 09:30 - Assessment and plan (1) NSTEMI (non-ST elevated myocardial infarction) Current Visit: Yes Status: Suspected Assessment and plan: NSTEMI in the setting of a wound infection, possible sepsis, and CKD. -Known history of CAD, prior CABG, prior PCI. -Patient currently chest pain-free. -Not currently an ideal candidate for a cardiac cath -PER CARDIOLOGY: Recommend continue aspirin, Brilinta, atorvastatin, metoprolol , and heparin. -Bedside ECHO performed this morning. (2) Acute respiratory failure with hypoxia Current Visit: Yes Status: Acute Assessment and plan: Presented with acute hypoxia SPO2 85% on room air. Improved immediately with 3 L NC. Now maintains SPO2 at 94%. -Patient is already on Levaquin and vancomycin and Zosyn for foot wound no additional antibiotics needed -CXR: persistent R pleural effusion with R basilar atelectasis -Continuous respiratory support, continue bronchodilators (3) Nonhealing surgical wound Current Visit: Yes Status: Acute Assessment and plan: Nonhealing surgical wound on right stump following partial amputation w/ new green drainage. -Cultures from last admission grew Acinetobacter. -Presented with leukocytosis with WBC 26.4 and leftward shift with bandemia. -Podiatry consult: MRI was negative for deep abscess or osteomyelitis. Continue ABX. 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 Creatinine today is 3.63 - Subjective Interval history: Patient was seen and examined at bedside this morning. Denies having any SOB. Patient's foot visibly red and swollen. Currently receiving bedside ECHO. No complaints at this time. - Constitutional Vitals: Temp Pulse Resp BP Pulse Ox 97.5 F L 73 18 128/63 96 11/16/17 06:40 11/16/17 06:40 11/16/17 06:40 11/16/17 06:40 11/16/17 06:40 General appearance: Present: A&O X 2, no acute distress, obese - Head Head exam: Present: atraumatic, normocephalic - Eye Eye exam: Present: PERRL, conjuntiva pink, sclera anicteric Pupils: Present: PERRL - Neck Neck exam general surgery: Present: supple, trachea midline. Absent: lymphadenopathy - Respiratory Respiratory exam: Present: CTAB. Absent: accessory muscle use, rales, rhonchi, wheezes - Cardiovascular Cardiovascular exam: Present: RRR, +S1, +S2. Absent: diastolic murmur, gallop, rubs, systolic murmur - Extremities Exam Extremities exam: Present: pedal edema. Absent: calf tenderness, cyanotic - Expanded Lower Extremities Exam Lower Leg exam: Present: erythema (Prior amputation distal to the mid foot noted. Wound noted on the lateral aspect of R foot. Sensation diminished.), swelling - Skin Skin exam: Present: dry, intact Internal Medicine: Result - Labs CBC & Chem 7: 11/16/17 00:24 11/16/17 00:24 Labs: Short CBC 11/16/17 Range/Units 00:24 WBC 15.2 H (4.3-11.1) K/mcL Hgb 8.8 L (12.9-16.9) g/dL Hct 27.3 L (37.5-50.1) % Plt Count 181 (140-400) K/mcL BMP 11/16/17 00:24 Sodium 135 L Potassium 4.1 Chloride 101 Carbon Dioxide 25 BUN 48 H Creatinine 3.63 H Glucose 158 H Calcium 9.0 Cardiac Enzymes 11/15/17 Range/Units 09:57 Troponin I 5.88 H* (0-0.03) ng/mL - ABG Interpretation ABG results: PT/INR, D-dimer PT 13.9 Seconds (9.4-12.1) H 11/14/17 20:56 - Impressions Impressions Foot MRI 12/16/17 12:55 IMPRESSION: Remote postsurgical changes status post amputation of the midfoot and forefoot at the level of the navicular. Nonspecific mild subcutaneous edema with possible shallow soft tissue ulcerations along the plantar medial foot and lateral hindfoot. Findings may represent cellulitis. No evidence of abscess. No evidence of osteomyelitis. Remote bone infarct of the talus. No acute marrow signal abnormality. D/ / 11/15/2017 16:10:14 Berny Leo MD / lobo Interpreting Provider: Berny Leo MD - VTE Reasons for not Prescribing Prophylaxis: Not indicated-Anticoagulated or INR therapeutic Consult Discharge Plan - Plan Referrals: Lala Beatty MD [Primary Care Provider] - <Javed Greco H - Last Filed: 11/16/17 12:29> Date of Encounter: 11/16/17 - Constitutional Vitals: Temp Pulse Resp BP Pulse Ox 98.0 F 77 18 150/70 92 11/16/17 10:50 11/16/17 10:50 11/16/17 10:50 11/16/17 10:50 11/16/17 10:50 Internal Medicine: Result - Labs CBC & Chem 7: 11/16/17 00:24 11/16/17 00:24 Labs: Short CBC 11/16/17 Range/Units 00:24 WBC 15.2 H (4.3-11.1) K/mcL Hgb 8.8 L (12.9-16.9) g/dL Hct 27.3 L (37.5-50.1) % Plt Count 181 (140-400) K/mcL BMP 11/16/17 00:24 Sodium 135 L Potassium 4.1 Chloride 101 Carbon Dioxide 25 BUN 48 H Creatinine 3.63 H Glucose 158 H Calcium 9.0 - ABG Interpretation ABG results: PT/INR, D-dimer PT 13.9 Seconds (9.4-12.1) H 11/14/17 20:56 - Impressions Impressions Foot MRI 11/15/17 12:55 IMPRESSION: Remote postsurgical changes status post amputation of the midfoot and forefoot at the level of the navicular. Nonspecific mild subcutaneous edema with possible shallow soft tissue ulcerations along the plantar medial foot and lateral hindfoot. Findings may represent cellulitis. No evidence of abscess. No evidence of osteomyelitis. Remote bone infarct of the talus. No acute marrow signal abnormality. D/ / 11/15/2017 16:10:14 Berny Leo MD / lobo Interpreting Provider: Berny Leo MD - Attending Attestation Sepsis secondary to acute right lower extremity cellulitis and foot surgical wound infection Grew Acinetobacter in the past sensitive to Levaquin Continue Levaquin, continue vancomycin day 3 Discontinue Zosyn Sent cultures, podiatry consulted History of diastolic CHF with right sided pleural effusion Acute chronic renal failure stage IV, possibly exacerbated by Bumex and vancomycin Restart IV fluids and hold Bumex Non-STEMI, chronology considering a cardiac catheterization in the morning I examined this patient and my medical decision-making was reviewed with the Resident Physician. I agree with the documented findings, disposition and treatment plan as described except to the extent set forth below.
--- NOTE | 2017-11-16 10:00 | Cardiology Progress Note ---
Date of Encounter: 11/16/17 Time of Encounter: 10:00 Assessment and Plan (1) NSTEMI (non-ST elevated myocardial infarction) Current Visit: Yes Status: Suspected Per Cardiology: Peak trop 5.88-- NSTEMI in the setting of a wound infection, possible sepsis, and CKD. Known history of CAD, prior CABG, prior PCI. Patient currently chest pain-free. On aspirin, Brilinta, statin, BB, and heparin gtt. Echo pending. Discussed with Dr. Shirley, plan for [facility] tomorrow. Patient agreeable. All questions answered. (2) CAD (coronary artery disease) Current Visit: Yes Status: Chronic Per Cardiology: Hx of CABG with Dr. King. Qualifiers: Coronary Disease-Associated Artery/Lesion type: [place] artery [place] vs. transplanted heart: [place] heart Associated angina: with unstable angina Qualified Code(s): I25.110 - Atherosclerotic heart disease of [place] coronary artery with unstable angina pectoris (3) Renal failure (ARF), acute on chronic Current Visit: No Status: Chronic Per Cardiology: Hx of CKD IV. Kidney fxn currently around baseline. On IV Bumex-- need monitor closely with diuresis and C. Consider nephrology c/s. Qualifiers: Acute renal failure type: unspecified Chronic kidney disease stage: stage 4 (severe) Qualified Code(s): N17.9 - Acute kidney failure, unspecified; N18.4 - Chronic kidney disease, stage 4 (severe); N18.4 - Chronic kidney disease , stage 4 (severe); N18.4 - Chronic kidney disease, stage 4 (severe); N18.4 - Chronic kidney disease, stage 4 (severe) Discussion w patient/family: The assessment and plan as outlined above was discussed with the patient who expressed understanding and agreement. All questions were answered. Thank you for involving us in the care of your patient. Please call with any questions. Subjective Principal diagnosis: Right foot cellulitis, Elevated trop Interval history: Patient denies any chest pain overnight. Reports occasional shortness of breath , however at baseline. Denies any palpitations. Denies any active bleeding or blood loss. Objective Vital Signs, Last 4 Hours Temp Pulse Resp BP Pulse Ox 11/16/17 06:40 97.5 F L 73 18 128/63 96 General: Conversant, No Apparent Distress HEENT: Atraumatic, Normocephaly, Mucus Membranes Moist Neck: No JVD, Normal carotid pulses Cardiac: Reg Rate and Rhythm, Normal S1 and S2, No Murmur Lungs: Normal Breath Sounds, No Wheeze, Rales, Rhonchi, Other (Diminished bilateral bases) Neuro: Alert and responsive, No focal deficits noted Abdomen: Soft, Non-Tender Skin: No rashes noted on visualized skin Musculoskeletal: No Chest Wall Tenderness Extremities: No Clubbing, No Cyanosis, Normal Pulses, Other (+1nonpitting LE edema, bilateral redness) Results 11/16/17 00:24 11/16/17 00:24 Lab Results Laboratory Tests 11/14/17 11/14/17 11/14/17 19:18 19:18 20:56 Hgb 10.1 L Hct 31.8 L INR Creatinine 2.85 H Est GFR (Non-Af Amer) 22 L Troponin I 1.66 H* 11/14/17 11/15/17 11/15/17 20:56 03:20 09:57 Hgb Hct INR 1.3 Creatinine Est GFR (Non-Af Amer) Troponin I 4.61 H* 5.88 H* 11/16/17 11/16/17 00:24 00:24 Hgb 8.8 L Hct 27.3 L INR Creatinine 3.63 H Est GFR (Non-Af Amer) 17 L Troponin I ITS Impressions Chest X-Ray 11/14/17 19:00 IMPRESSION: 1. Persistent right pleural effusion with right basilar atelectasis. 2. Mildly enlarged cardiac silhouette. 3. No acute abnormality identified within the left lung. D/ / Jerman Valentine MD / Jerman Valentine MD Interpreting Provider: Jerman Valentine MD Foot X-Ray 11/14/17 19:03 IMPRESSION: 1. No radiographic evidence of osteomyelitis. Consider further assessment with dedicated MRI with contrast if there are continued clinical concerns. 2. Partial amputation of the foot. D/ / 11/14/2017 19:38:19 Reynold Edwards MD / Roberta Huntley Interpreting Provider: Reynold dEwards MD Foot MRI 11/15/17 12:55 IMPRESSION: Remote postsurgical changes status post amputation of the midfoot and forefoot at the level of the navicular. Nonspecific mild subcutaneous edema with possible shallow soft tissue ulcerations along the plantar medial foot and lateral hindfoot. Findings may represent cellulitis. No evidence of abscess. No evidence of osteomyelitis. Remote bone infarct of the talus. No acute marrow signal abnormality. D/ / 11/15/2017 16:10:14 Berny Leo MD / lobo Interpreting Provider: Berny Leo MD Active Medications Hydrocodone Bitart/Acetaminophen ([place] 5-325 Mg) 2 tab PO BID PRN PRN Reason: Pain Stop: 05/16/18 22:10 Last Admin: 11/15/17 22:29 Dose: 2 tab Albuterol Sulfate (Albuterol Inhaler) 2 puff IH Q4HR PRN PRN Reason: Shortness Of Breath Stop: 05/16/18 22:10 Allopurinol (Zyloprim) 100 mg PO DAILY [facility] Stop: 05/17/18 09:01 Last Admin: 11/15/17 08:22 Dose: 100 mg Amlodipine Besylate (Norvasc) 2.5 mg PO DAILY [facility] PRN Reason: Protocol Stop: 05/17/18 09:01 Last Admin: 11/15/17 08:18 Dose: 2.5 mg Aspirin (Aspirin) 81 mg PO DAILY [facility] Stop: 05/17/18 09:01 Last Admin: 11/15/17 12:37 Dose: Not Given Atorvastatin Calcium (Lipitor) 80 mg PO HS [facility] Stop: 05/17/18 21:01 Last Admin: 11/15/17 22:29 Dose: 80 mg Budesonide/Formoterol Fumarate (Symbicort) 2 puff IH BIDR [facility] PRN Reason: Protocol Stop: 05/17/18 10:01 Last Admin: 11/15/17 21:53 Dose: Not Given Bumetanide (Bumex) 0.5 mg IVP BIDDIURETIC [facility] Stop: 05/17/18 17:16 Last Admin: 11/15/17 17:52 Dose: 0.5 mg Citalopram Hydrobromide (Celexa) 10 mg PO HS [facility] Stop: 05/17/18 21:01 Last Admin: 11/15/17 22:29 Dose: 10 mg Cyanocobalamin (Vitamin B12) 2,500 mcg PO DAILY [facility] Stop: 05/17/18 09:01 Last Admin: 11/15/17 08:19 Dose: 2,500 mcg Dextrose/Water (Dextrose 50% (Syg)) 25 ml IVP AD PRN PRN Reason: Hypoglycemia Stop: 05/16/18 22:15 Famotidine (Pepcid) 20 mg PO BIDAC [facility] Stop: 05/17/18 07:31 Last Admin: 11/15/17 17:33 Dose: 20 mg Gabapentin (Neurontin) 300 mg PO BID [facility] Stop: 05/17/18 09:01 Last Admin: 11/15/17 22:29 Dose: 300 mg Glucagon (Glucagen) 1 mg IM ONCE PRN PRN Reason: Hypoglycemia Stop: 05/16/18 22:15 Glucose (Gluctose) 15 gm PO ONCE PRN PRN Reason: Hypoglycemia Stop: 05/16/18 22:15 Glucose (Gluctose) 30 gm PO ONCE PRN PRN Reason: Hypoglycemia Stop: 05/16/18 22:15 Heparin Sodium (Porcine) (Heparin) 4,000 unit IVP Q6HR PRN PRN Reason: SEE COMMENTS Stop: 05/16/18 23:03 Heparin Sodium (Porcine) (Heparin) 2,000 unit IVP Q6H PRN PRN Reason: SEE COMMENTS Stop: 05/16/18 23:03 Last Admin: 11/16/17 00:59 Dose: 2,000 unit Hydralazine HCl (Hydralazine) 25 mg PO BID [facility] Stop: 05/17/18 09:01 Last Admin: 11/15/17 22:29 Dose: 25 mg Dextrose (Dextrose 5%) 1,000 mls @ 100 mls/hr IVC .Q10H PRN PRN Reason: HYPOGLYCEMIA Stop: 05/16/18 22:15 Heparin Sodium/Dextrose (Heparin 25,000 Unit/500 Ml D5w) 25,000 unit in 500 mls @ 20.097 mls/hr IVC .Q24H [facility]; 6.3 UNIT/KG/HR PRN Reason: Protocol Stop: 05/16/18 23:16 Last Titration: 11/16/17 01:02 Dose: 11.88 unit/kg/hr, 37.9 mls/hr Vancomycin HCl 1,500 mg/ (Dextrose) 250 mls @ 166.667 mls/hr IVPB Q24H [facility] Stop: 05/17/18 09:01 Last Infusion: 11/15/17 12:38 Dose: Infused Levofloxacin/Dextrose (Levaquin Premix 500mg/100ml) 500 mg in 100 mls @ 100 mls /hr IVPB Q24H [facility] PRN Reason: Protocol Stop: 05/17/18 18:01 Last Admin: 11/15/17 17:54 Dose: 100 mls/hr Insulin Detemir (Levemir) 40 unit SQ BID [facility] Stop: 05/17/18 09:01 Last Admin: 11/15/17 22:31 Dose: 40 unit Insulin Human Lispro (Humalog) 0 units SQ HS [facility] PRN Reason: Protocol Stop: 05/16/18 21:01 Last Admin: 11/15/17 22:30 Dose: 2 units Insulin Human Lispro (Humalog) 0 units SQ TIDAC [facility] PRN Reason: Protocol Stop: 05/17/18 07:31 Last Admin: 11/16/17 07:34 Dose: Not Given Metoprolol Succinate (Toprol Xl) 25 mg PO DAILY [facility] Stop: 05/17/18 09:01 Last Admin: 11/15/17 08:17 Dose: 25 mg Morphine Sulfate (Morphine Sulfate) 2 mg IVP Q4HR PRN PRN Reason: Severe Pain (7-10) Stop: 05/16/18 22:15 Multi-Ingredient Mucositis Claude (Chloraseptic) 1 spray MM QID PRN PRN Reason: Sore Throat Stop: 05/17/18 23:49 Last Admin: 11/16/17 01:00 Dose: 1 spray Multivitamins/Calcium (Thera M Plus) 1 tab PO DAILY [facility] Stop: 05/17/18 09:01 Last Admin: 11/15/17 08:21 Dose: 1 tab Naloxone HCl (Narcan) 0.4 mg IVP Q2MIN PRN PRN Reason: Opioid Reversal Stop: 05/16/18 22:15 Ondansetron HCl (Zofran) 4 mg IVP Q8HR PRN PRN Reason: Nausea And Vomiting Stop: 05/16/18 22:15 Promethazine HCl (Phenergan) 12.5 mg IVP Q6HR PRN PRN Reason: Nausea And Vomiting Stop: 05/16/18 22:15 Ticagrelor (Brilinta) 90 mg PO BID [facility] Stop: 05/17/18 09:01 Last Admin: 11/15/17 17:01 Dose: Not Given - Imaging and Cardiology Echo: pending Cardiac cath: pending - VTE Reasons for not Prescribing Prophylaxis: Not indicated-Anticoagulated or INR therapeutic Consult Discharge Plan - Plan Referrals: Lala Beatyt MD [Primary Care Provider] -
[2017-11-16] MEDS: Insulin DETEMIR 100 UNIT/ML X5UNITS SQ SCH ×2 (10:13→20:20)
[2017-11-16] MEDS: Cyanocobalamin (B-12) 1,000 MCG TABLET PO SCH (10:15)
[2017-11-16] MEDS: amLODIPine 5 MG TABLET PO SCH (10:16)
[2017-11-16] MEDS: Multivit/Ca/Min/Fe/FA 1 TAB TABLET PO SCH (10:17)
[2017-11-16] MEDS: Famotidine 20 MG TABLET PO SCH ×2 (10:17→17:22)
[2017-11-16] MEDS: Metoprolol XL (24 HR) Succ 25 MG TAB.ER.24H PO SCH (10:17)
[2017-11-16] MEDS: Gabapentin 300 MG CAPSULE PO SCH ×2 (10:17→20:20)
[2017-11-16] MEDS: Bumetanide 1 MG/4 ML VIAL IVP SCH (10:17)
[2017-11-16] MEDS: hydrALAZINE 25 MG TABLET PO SCH ×2 (10:17→20:20)
[2017-11-16] MEDS: Aspirin 81 MG TAB.CHEW PO SCH (10:19)
[2017-11-16] MEDS: *HR* Ticagrelor 90 MG TABLET PO SCH ×2 (10:19→20:20)
[2017-11-16] MEDS: Budesonide/Formoterol 160/4.5 MDI IH SCH ×2 (10:24→21:50)
[2017-11-16] MEDS: Vancomycin 1,500 MG in D5% in Water 250 ML IVPB SCH (10:30)
[2017-11-16] MEDS: Heparin 25,000 UNIT/500 ML D5W 25,000 UNIT/500 ML BAG IVC SCH (12:38)
[2017-11-16] MEDS: Piperacillin/Tazobactam 3.375 GM/200 ML BAG IVPB SCH (14:52)
[2017-11-16] MEDS: Levofloxacin 500 MG/100 ML 500 MG/100 ML BAG IVPB SCH (17:22)
[2017-11-16] MEDS: *HR* HYDROcodone/Acet 5/325 mg TABLET PO PRN (21:21)
[2017-11-17] MEDS: Heparin 25,000 UNIT/500 ML D5W 25,000 UNIT/500 ML BAG IVC SCH (02:36)
[2017-11-17 04:45] LABS: Hematocrit 24.1 % (37.5-50.1); Hemoglobin 7.4 g/dL (12.9-16.9); Mean Corpuscular HGB Conc 30.7 g/dL (31.6-35.5); Mean Corpuscular Hemoglobin 29.1 pg (28.0-33.3); Mean Corpuscular Volume 94.9 fL (83.0-100.0); Mean Platelet Volume 10.6 fL (9.4-12.4); Platelet Count 158 K/mcL (140-400); Red Blood Count 2.54 M/mcL (4.19-5.50)
[2017-11-17 04:58] LABS: Potassium 3.3 mEq/L (3.5-4.5)
[2017-11-17 04:59] LABS: Calcium 7.1 mg/dL (8.6-10.8)
--- NOTE | 2017-11-17 07:49 | Podiatry Progress Note ---
Date of Encounter: 11/17/17 Time of Encounter: 07:47 - Assessment and Plan (1) Cellulitis Current Visit: Yes Status: Acute The MRI was received demonstrates no deep abscess or osteomyelitis. Currently due to the negative MRI we will continue antibiotics and not perform any surgical intervention at this time. We will continue to monitor the foot for any increasing signs of infection and consider surgical intervention at that time. Normal dressing changes and monitoring with IV antibiotics should be sufficient at this point. Qualifiers: Site of cellulitis: other site Qualified Code(s): L03.818 - Cellulitis of other sites Subjective Principal diagnosis: Right foot cellulitis, Elevated trop Interval history: Patient was seen at bedside and relates significant improvement. Patient denies any new symptoms. Patient denies any new pain. Objective - Vital Signs Vital Signs: Vital Signs Temp Pulse Resp BP Pulse Ox 11/17/17 06:51 98.2 F 77 18 118/71 94 11/17/17 03:33 98.5 F 73 16 134/66 99 11/16/17 23:02 99.4 F 84 16 136/73 97 11/16/17 21:50 16 99 11/16/17 18:32 99.7 F H 76 16 147/73 98 11/16/17 16:44 98.1 F 78 18 133/58 95 11/16/17 10:50 98.0 F 77 18 150/70 92 11/16/17 10:40 96 11/16/17 10:24 18 128/63 92 Intake and Output 11/16/17 11/16/17 11/17/17 15:59 23:59 07:59 Intake Total 1227 / 1227 1000 / 1000 418 / 418 Output Total 350 / 350 975 / 975 200 / 200 Balance 877 / 877 25 / 25 218 / 218 Intake: IV Fluids 867 / 867 1000 / 1000 418 / 418 0.9 % Sodium Chloride 1,000 ML 1000 / 1000 @ 100 mls/hr IVC .Q10H [facility] Rx#: [id number] Heparin 25,000 UNIT/500 ML D5W 507 / 507 418 / 418 25,000 unit In 500 ml @ 6.3 UNIT/KG/HR 20.097 mls/hr IVC . Q24H [facility] Rx#:[id number] Definity 1.3 ML In Normal 10 / 10 Saline Flush 8.7 ML @ 1200 mls/ hr IVP ONCE ONE Rx#:[id number] Levaquin Premix 500mg/100mL 500 100 / 100 mg In 100 ml @ 100 mls/hr IVPB Q24H [facility] Rx#:[id number] Vancocin 1,500 MG In Dextrose 5 250 / 250 % 250 ML @ 166.667 mls/hr IVPB Q24H [facility] Rx#:[id number] Oral 360 / 360 Output: Urine 350 / 350 975 / 975 200 / 200 Other: Meal Lunch Percent of Meal Consumed 100% Weight 159 kg Blood Glucose* 233 211 180 Patient Weight 11/17/17 23:59 Weight 159 kg - Exam Exam: Erythema continued along the right foot and leg. Pedal pulses are palpable. Capillary refill time is intact. There are no open lesions, abrasions besides a mild fissure on the lateral aspect of the foot, right. Sensation diminished consistent with peripheral neuropathy. - Lab Result Diagrams: 11/17/17 04:13 11/17/17 04:13 Labs: Abnormal lab results RBC 2.54 M/mcL (4.19-5.50) L 11/17/17 04:13 Hgb 7.4 g/dL (12.9-16.9) L 11/17/17 04:13 Hct 24.1 % (37.5-50.1) L 11/17/17 04:13 MCHC 30.7 g/dL (31.6-35.5) L 11/17/17 04:13 RDW 15.0 % (11.5-14.5) H 11/17/17 04:13 Band Neutrophils % 12.7 % (0-4) H 11/15/17 03:20 Metamyelocytes % 2.0 % (0) H 11/14/17 19:18 Myelocytes % 2.0 % (0) H 11/14/17 19:18 Neutrophils # 23.2 K/mcL (1.6-8.9) H 11/15/17 03:20 Monocytes # 1.4 K/mcL (0.0-1.3) H 11/15/17 03:20 Polychromasia 1+ (Not Present) A 11/15/17 03:20 ESR 124 mm/hr (0-10) H 11/14/17 19:18 PT 13.9 Seconds (9.4-12.1) H 11/14/17 20:56 APTT 69.9 Seconds (26.0-36.0) H 11/16/17 13:22 Potassium 3.3 mEq/L (3.5-4.5) L 11/17/17 04:13 Chloride 111 mEq/L (98-109) H 11/17/17 04:13 BUN 45 mg/dL (8-26) H 11/17/17 04:13 Creatinine 2.94 mg/dL (0.72-1.25) H 11/17/17 04:13 Est GFR ( Amer) 26 (> 60) L 11/17/17 04:13 Est GFR (Non-Af Amer) 22 (> 60) L 11/17/17 04:13 Glucose 150 mg/dL (70-99) H 11/17/17 04:13 POC Glucose 211 (58-89) H 11/16/17 18:35 Calculated Osmolality 304 (280-300) H 11/17/17 04:13 Calcium 7.1 mg/dL (8.6-10.8) L D 11/17/17 04:13 Alkaline Phosphatase 171 Units/L (38-126) H 11/14/17 20:56 Troponin I 5.88 ng/mL (0-0.03) H* 11/15/17 09:57 C-Reactive Protein 114 mg/L (Less than 5) H 11/14/17 19:18 Albumin 2.9 g/dL (3.5-5.0) L 11/14/17 20:56 Globulin 4.0 g/dL (2.4-3.5) H 11/14/17 20:56 Albumin/Globulin Ratio 0.7 (1.1-2.2) L 11/14/17 20:56 HDL Cholesterol 26 mg/dL (40-59) L 11/15/17 03:20 Urine Protein >=300 mg/dL (Neg-Trace) H 11/14/17 19:35 Urine Microscopic RBC 5-15 per hpf (0-3) H 11/14/17 19:35 Ur Squamous Epith Cells Many per lpf (None-Few) H 11/14/17 19:35 Microbiology, Last 48 Hours 11/15/17 17:45 Wound Culture - Final Right Foot Group G Streptococcus - VTE Reasons for not Prescribing Prophylaxis: Not indicated-Anticoagulated or INR therapeutic Consult Discharge Plan - Plan Referrals: Lala Beatty MD [Primary Care Provider] - (web request sent on 2016)
[2017-11-17] MEDS ORDERED: Heparin 1,000 UNIT, 0.9 % Sodium Chloride 500 ML INARTERIAL ONE (08:15)
[2017-11-17] MEDS ORDERED: Aminoglycoside Consult 1 EACH MC ONE (08:51)
[2017-11-17] MEDS: Cyanocobalamin (B-12) 1,000 MCG TABLET PO SCH (10:15)
[2017-11-17] MEDS: amLODIPine 5 MG TABLET PO SCH (10:16)
[2017-11-17] MEDS: Aspirin 81 MG TAB.CHEW PO SCH (10:16)
[2017-11-17] MEDS: Famotidine 20 MG TABLET PO SCH (10:16)
[2017-11-17] MEDS: hydrALAZINE 25 MG TABLET PO SCH ×2 (10:16→20:41)
[2017-11-17] MEDS: Gabapentin 300 MG CAPSULE PO SCH ×2 (10:16→20:41)
[2017-11-17] MEDS: Metoprolol XL (24 HR) Succ 25 MG TAB.ER.24H PO SCH (10:16)
[2017-11-17] MEDS: Multivit/Ca/Min/Fe/FA 1 TAB TABLET PO SCH (10:16)
[2017-11-17] MEDS: Budesonide/Formoterol 160/4.5 MDI IH SCH ×2 (10:19→19:49)
[2017-11-17] MEDS: *HR* Ticagrelor 90 MG TABLET PO SCH ×2 (10:22→20:41)
[2017-11-17] MEDS: Insulin DETEMIR 100 UNIT/ML X5UNITS SQ SCH ×2 (10:27→22:00)
[2017-11-17] MEDS: 0.9 % Sodium Chloride 1,000 ML IVC SCH (10:32)
--- NOTE | 2017-11-17 10:34 | Event Note ---
Date of Encounter: 11/17/17 Time of Encounter: 09:30 - Cardiology Event Note Laboratory Tests 08/14/16 11/17/17 06:33 04:13 Hgb 7.6 L 7.4 L Hct 24.1 L Patient denies any active bleeding or blood loss. On asa, Brilinta. H&H trend reviewed-- Hgb was 7 range at time of last stent in 08/2016. reports hx of anemia and follows as outpatient with Oncology and receives "infusions". Discussed with Dr. Santos and Dr. Roth, plan for [facility] today.
[2017-11-17] MEDS: Insulin LISPRO 300 UNITS/3 ML VIAL SQ SCH ×4 (10:48→20:41)
--- NOTE | 2017-11-17 11:19 | Internal Med Progress Note ---
<Zhao Hutchinson - Last Filed: 11/17/17 15:08> Date of Encounter: 11/17/17 Time of Encounter: 11:00 - Assessment and plan (1) NSTEMI (non-ST elevated myocardial infarction) Current Visit: Yes Status: Suspected Assessment and plan: NSTEMI in the setting of a wound infection, possible sepsis, and CKD -Known history of CAD, prior CABG, prior PCI -Patient currently chest pain-free, though does report never having chest pain with heart attacks. -Echo showed preserved EF of 60% and atypical septal motion defect consistent with postoperative changes, indeterminate diastolic function -PER CARDIOLOGY: Recommend continue aspirin, Brilinta, atorvastatin, metoprolol , and heparin. Plan for left heart catheterization today (2) Sepsis Current Visit: Yes Status: Resolved Assessment and plan: Leukocytosis with WBC 26.4, leftward shift and bandemia, ESR 124 -WC this morning is normalized at 11.1 -Chronic right foot wound following right partial amputation as a likely source -Blood CX 11/14/17 demonstrated no growth -ABX: Vancomycin 1500 IV Q24 and Levaquin 500 mg IV Q24 Qualifiers: Sepsis type: Streptococcus, other Qualified Code(s): A40.8 - Other streptococcal sepsis (3) Anemia Current Visit: Yes Status: Acute Assessment and plan: Acute on chronic anemia with history of chronic kidney disease, complicated by Phlebotomy, dilution, or occult blood loss Hemoglobin has been trending down since admission, the presentation hemoglobin was 10.1 is currently 7.4. Patient on aspirin, Brillinta, and heparin drip for NSTEMI. No signs of blood loss currently. Decrease in hemoglobin could be partially related to dilution, phlebotomy, or occult blood loss given his anticoagulation. We will continue to monitor patient hemoglobin We will stop heparin per cardiology, hopefully after heart catheter today Continue to watch for signs of bleeding Will obtain type and screen We will transfuse 1 unit PRBCs as patient has hemoglobin below 8 with cardiac disease Qualifiers: Anemia type: other cause Other causes of anemia: other cause, not classified Qualified Code(s): D64.89 - Other specified anemias (4) Acute respiratory failure with hypoxia Current Visit: Yes Status: Acute Assessment and plan: Presented with acute hypoxia SPO2 85% on room air. Improved immediately with 3 L NC. Maintaining adequate oxygenation with simple mask. Patient does report having increased subjective shortness of breath since last night however. -Patient is already on Levaquin and vancomycin for foot wound -CXR: persistent R pleural effusion with R basilar atelectasis -Continuous respiratory support, continue bronchodilators (5) Nonhealing surgical wound Current Visit: Yes Status: Acute Assessment and plan: Nonhealing surgical wound on right stump following partial amputation w/ new green drainage. Cultures from last admission grew Acinetobacter. Wound culture shows group G Streptococcus. Presented with leukocytosis with WBC 26.4 and leftward shift with bandemia. Blood cell count has trended down the last several days from 26.4 down to 11.1. -Podiatry consult: MRI was negative for deep abscess or osteomyelitis. Continue ABX as above Qualifiers: Encounter type: initial encounter Qualified Code(s): T81.89XA - Other complications of procedures, not elsewhere classified, initial encounter (6) CKD (chronic kidney disease), stage III Current Visit: Yes Status: Chronic Assessment and plan: History of CKD stage III. Creatinine today is 2.94, improved from previous Continue monitor Avoid nephrotoxic agents - Subjective Interval history: Patient reports that since last night he is feeling some increased shortness of breath, but states he does have a stuffy nose and has been unable to get much sleep on account of his chronic back pain. He denies any fever or chills. He does state that he has neuropathy can feel his lower extremities as well as stating that he was unable to feel his last heart attack due to the neuropathy in his chest. - Constitutional Vitals: Temp Pulse Resp BP Pulse Ox 98.2 F 77 18 118/71 91 11/17/17 06:51 11/17/17 06:51 11/17/17 10:20 11/17/17 06:51 11/17/17 10:20 General appearance: Present: A&O X 2, no acute distress, obese Exam: General: Cooperative, pleasant, no acute distress, alert and oriented 3, answers questions appropriately HEENT: Normocephalic, atraumatic, Conjunctiva pink, sclera anicteric, oral mucosa moist, no orophargeal erythema or exudates Respiratory: No accessory muscle usage, clear to auscultation bilaterally, no wheezes/rhonchi/rales appreciated Cardiovascular: Regular rate and rhythm, S1 and S2 present, no murmurs/rubs/ gallops/clicks appreciated Extremities: No calf tenderness, noncyanotic, 1-2+ pedal edema appreciated, warm , lower extremity pulses palpable and symmetrical, previous digital amputations on right foot, marked area of cellulitis on her right leg is slightly improved given previous skin markings, warmth in area of cellulitic changes Neurological: Alert and oriented 3, no facial droop, no focal deficits Skin: Dry, erythema and right lower extremity Internal Medicine: Result - Labs CBC & Chem 7: 11/17/17 04:13 11/17/17 04:13 Labs: Short CBC 11/17/17 Range/Units 04:13 WBC 11.1 (4.3-11.1) K/mcL Hgb 7.4 L (12.9-16.9) g/dL Hct 24.1 L (37.5-50.1) % Plt Count 158 (140-400) K/mcL BMP 11/17/17 04:13 Sodium 140 Potassium 3.3 L Chloride 111 H Carbon Dioxide 20 BUN 45 H Creatinine 2.94 H Glucose 150 H Calcium 7.1 L D - ABG Interpretation ABG results: PT/INR, D-dimer PT 13.9 Seconds (9.4-12.1) H 11/14/17 20:56 - Impressions Impressions Foot MRI 11/15/17 12:55 IMPRESSION: Remote postsurgical changes status post amputation of the midfoot and forefoot at the level of the navicular. Nonspecific mild subcutaneous edema with possible shallow soft tissue ulcerations along the plantar medial foot and lateral hindfoot. Findings may represent cellulitis. No evidence of abscess. No evidence of osteomyelitis. Remote bone infarct of the talus. No acute marrow signal abnormality. D/ / 11/15/2017 16:10:14 Berny Leo MD / lobo Interpreting Provider: Berny Leo MD Echocardiogram 11/16/17 11:30 Impressions: Technically sub-optimal due to body habitus. LVEF 60%. Normal LV chamber size and function. Mild concentric left ventricular hypertrophy. Atypical septal motion consistent with post-operative status. Indeterminate diastolic function. Right ventricle grossly appears dilated with normal function. Unable to estimate RVSP due to lack of TR jet. No obvious significant valvular dysfunction. Left Ventricular Wall Motion: Rest Echo Findings All wall segments showed normal motion. Findings: Study Quality * Technically sub-optimal due to body habitus. ECG Findings * Normal sinus rhythm. Left Ventricle * LVEF 60%. * Normal LV chamber size and function. * Mild concentric left ventricular hypertrophy. * Atypical septal motion consistent with post-operative status. * Indeterminate diastolic function. Right Ventricle * Right ventricle grossly appears dilated with normal function. Left Atrium * Grossly, moderate to severely dilated left atrium. Right Atrium * Grossly, mildly dilated right atrium. Aortic Valve * Trileaflet aortic valve. * No aortic regurgitation. * No aortic stenosis. Mitral Valve * Normal mitral valve structure and function. Tricuspid Valve * Tricuspid valve not well visualized. * No tricuspid regurgitation. * Unable to estimate RVSP due to lack of TR jet. Pulmonic Valve * Pulmonic valve not well visualized. Pericardium * The pericardium appears normal. IVC * The IVC is dilated. * < 50% respiratory change. Pulmonary Artery * Pulmonary artery not well visualized. - VTE Reasons for not Prescribing Prophylaxis: Not indicated-Anticoagulated or INR therapeutic Consult Discharge Plan - Plan Referrals: Lala Beatty MD [Primary Care Provider] - (web request sent on 2016) <Javed Greco H - Last Filed: 11/17/17 15:53> Date of Encounter: 11/17/17 - Constitutional Vitals: Temp Pulse Resp BP Pulse Ox 97.6 F 78 28 130/42 100 11/17/17 11:17 11/17/17 11:17 11/17/17 14:48 11/17/17 14:48 11/17/17 14:48 Internal Medicine: Result - Labs CBC & Chem 7: 11/17/17 04:13 11/17/17 04:13 Labs: Short CBC 11/17/17 Range/Units 04:13 WBC 11.1 (4.3-11.1) K/mcL Hgb 7.4 L (12.9-16.9) g/dL Hct 24.1 L (37.5-50.1) % Plt Count 158 (140-400) K/mcL BMP 11/17/17 04:13 Sodium 140 Potassium 3.3 L Chloride 111 H Carbon Dioxide 20 BUN 45 H Creatinine 2.94 H Glucose 150 H Calcium 7.1 L D - ABG Interpretation ABG results: PT/INR, D-dimer PT 13.9 Seconds (9.4-12.1) H 11/14/17 20:56 - Attending Attestation The patient had to be started on BiPAP after the cardiac catheterization. Cardiac catheter report pending We will start Lasix drip, cardiology recommending to consult nephrology/Dr. Galan Spoke with the patient regarding his cellulitis and a culture growing Streptococcus G, he is willing to try Ancef, we will discontinue vancomycin and Levaquin. If the infection does not improve vancomycin might need to be restarted as there is a chance Streptococcus G we will is not the responsible agent for his cellulitis Send the patient to [facility] I examined this patient and my medical decision-making was reviewed with the Resident Physician. I agree with the documented findings, disposition and treatment plan as described except to the extent set forth below.
--- NOTE | 2017-11-17 12:08 | Electrocardiograph Report ---
[place] [id number] Test Date: 2017-11-14 Pat Name: Eric Levine Department: 103 Room: 2A32 Gender: M Bee Worker: ANITHA : 1955 Requested By: Javed Greco Order Number: [id number] Reading MD: Guido Pierce MD Measurements Intervals [place] Rate: 79 P: 38 VT: 180 QRS: -19 QRSD: 96 T: 85 QT: 390 QTc: 425 Interpretive Statements SINUS RHYTHM Poor R wave progression Electronically Signed On 11-17-2017 12:07:13 EST by Guido Pierce MD
[2017-11-17] MEDS ORDERED: 0.9 % Sodium Chloride 1,000 ML ONE (12:50)
[2017-11-17] MEDS ORDERED: *HR* Heparin 10,000 UNIT/10 ML VIAL ONE (12:51)
[2017-11-17] MEDS ORDERED: Nitroglycerin 1,000 MCG/10 ML VIAL IV ONE (12:51)
[2017-11-17] MEDS ORDERED: *HR* FentaNYL (PF) 100 MCG/2 ML VIAL ONE (13:30)
--- NOTE | 2017-11-17 14:26 | Event Note ---
Date of Encounter: 11/17/17 Time of Encounter: 14:25 - Cardiology Event Note Per discussion with Dr. Santos, no intervention warranted with recs for medical management. We'll discontinue heparin drip. Add long-acting nitrate. Cardiology will sign off, re-consult as needed, follow-up scheduled. On asa, Brilinta, BB, statin. All questions answered.
[2017-11-17] MEDS ORDERED: Ipratropium/Albuterol Neb 3 ML IH ONE (14:35)
--- NOTE | 2017-11-17 14:50 | Pre-Sedation Evaluation ---
Pre-sedation evaluation - Pre-sedation checklist Date of procedure: 11/17/17 Procedure: C Recent Vitals: Last Vital Signs Temp 97.6 F 11/17/17 11:17 Pulse 78 11/17/17 11:17 Resp 18 11/17/17 11:17 BP 157/64 11/17/17 11:17 Pulse Ox 97 11/17/17 11:17 Dentition: No loose teeth or bridges ASA Classification *see protocol: CLASS II-Mild systemic disease Plan of Care: Pt appropriate candidate for procedure/moderate/conscious sedation
[2017-11-17] MEDS ORDERED: Furosemide 20 MG/2 ML VIAL IVP ONE (14:52)
--- NOTE | 2017-11-17 15:58 | Event Note ---
Date of Encounter: 11/17/17 Time of Encounter: 15:55 - Cardiology Event Note Patient developed dyspnea in hemodialysis lab technician, placed on BiPap. Bloom inserted with ~ 500 ml urine. Patient and son now report he has had about a 40-50 lb weight gain in past 1-2 weeks. Weight from eCW reviewed and was 298 lbs 08/2017, now 349 lbs. On bumex at home. Has seen Nephrology (Dr. Pride) and reports hx of intermittent dialysis treatments in the past. Will place consult to eval for recs for dialysis/diuresis. Creat. remains about his baseline. Will continue to follow. Primary service notified.
[2017-11-17] MEDS ORDERED: CeFAZolin Premix DUPLEX 2,000 MG/50 ML BAG IVPB SCH (16:00)
--- NOTE | 2017-11-17 17:02 | Electrocardiograph Report ---
[address] [address] Test Date: 2017-11-14 Pat Name: Eric Levine Department: 103 Room: [facility] Gender: M Strickler Attendant: ANITHA : 1955 Requested By: Jeremias Kaye Order Number: [id number] Reading MD: Nba Good Measurements Intervals [place] Rate: 87 P: 39 ME: 161 QRS: -26 QRSD: 102 T: 86 QT: 395 QTc: 440 Interpretive Statements SINUS RHYTHM LEFT AXIS DEVIATION NONSPECIFIC ST & T-WAVE ABNORMALITY Electronically Signed On 11-17-2017 17:00:23 EST by Nba Good
--- NOTE | 2017-11-17 17:13 | Invasive Diagnostic Lab Proc ---
Name: Eric Levine Date of Study: 11/17/2017 Date: 1955 Ht: 70.0in Medical Record#: [id number] Age: 62 Wt: 350.76lb Gender: Male BSA: 2.65 Order #: [id number] BMI: 50.33 Physicians Procedure Physician: Dashawn Santos MD Referring MD: Referring MD: Staff Name Position Time In Carmen Yost RT (R) Scrub 01:19 PM Jess Burgos RN Deburring Machine Operator 01:19 PM Shanelle Su RN Monitor 01:19 PM Indications Indication Non-Stemi Procedures Performed Procedure CORONARY ART/GRFT ANGIO S&I Pre-Procedure Checklist Informed consent is complete signed and on chart. H&P is on chart. ID band is on and ID verified with patient. Patient NPO for procedure The procedure was described for the patient and questions were answered. Blood Pressure: 166/79 ECG is on chart. Rhythm: NSR Plan of Care Patient will tolerate the procedure without complications. Adequate level of comfort will be maintained. Hemodynamics will remain stable Patient will recover from procedure without complications. Respiratory function will be maintained. Cardiac rhythm will remain stable. Patient temperature will be maintained. Patient and/or family have verbalized understanding of the procedure. Patient Education Intravenous Access Time IV Size Location DC'd Fluid/Drip Rate Units RN 01:23 PM 20g 1 1/4" Patent On Arrival Rt Hand 0.9NaCl 25 ml/hr Jess Burgos RN 01:27 PM 20g 1 1/4" Patent On Arrival Lt Arm Allergies acetaminophen Zolpidem pregabalin propoxyphene Vital Signs Time BP (mmHg) HR (bpm) O2 Sat. RR (bpm) LOC 01:30 PM / % 5 = Fully awake and oriented or at pre-proc level 01:30 PM / % 4 = Oriented but drowsy 01:45 PM / % 5 = Fully awake and oriented or at pre-proc level 01:29 PM 166 / 79 78 100 % 21 01:33 PM 164 / 86 78 99 % 20 01:38 PM 158 / 82 84 99 % 16 01:43 PM 155 / 76 76 98 % 20 01:48 PM 156 / 76 76 97 % 20 01:53 PM 158 / 76 77 96 % 20 01:58 PM 154 / 77 70 96 % 20 02:03 PM 154 / 78 76 96 % 20 5 = Fully awake and oriented or at pre-proc level 02:57 PM 130 / 42 80 97 % 18 5 = Fully awake and oriented or at pre-proc level 02:30 PM 152 / 68 77 96 % 20 5 = Fully awake and oriented or at pre-proc level 02:45 PM 130 / 42 81 97 % 22 5 = Fully awake and oriented or at pre-proc level 03:00 PM 136 / 58 81 95 % 22 5 = Fully awake and oriented or at pre-proc level 03:15 PM 147 / 77 78 100 % 17 5 = Fully awake and oriented or at pre-proc level 03:30 PM 151 / 69 79 100 % 18 5 = Fully awake and oriented or at pre-proc level 03:45 PM 133 / 60 79 100 % 18 5 = Fully awake and oriented or at pre-proc level 04:00 PM 130 / 55 80 99 % 16 5 = Fully awake and oriented or at pre-proc level 04:19 PM 113 / 43 79 100 % 18 5 = Fully awake and oriented or at pre-proc level 04:34 PM 105 / 56 74 100 % 18 5 = Fully awake and oriented or at pre-proc level 05:00 PM 150 / 60 75 100 % 18 5 = Fully awake and oriented or at pre-proc level Procedural Medications Time Medication Dose Units Method Given By 01:19 PM Oxygen 4 L/min nasal cannula Jess Burgos RN 01:30 PM Fentanyl 25 mcg Intravenous Jess Burgos RN 01:31 PM Lidocaine 2% 10 ml Subcutaneous Dashawn Santos MD 03:40 PM Gibbon 10 mg Orally Mary Ellen Briseno RN ASA Classification: CLASS II- Mild systemic disease (i.e. well-controlled diabetes, hypertension, asthma, cigarette smoking) Williams Score Preprocedure Postprocedure Activity 2- Moves 4 extremities sustained head lift Activity 2- Moves 4 extremities sustained head lift Circulation 2- SBP +/= 20 points of pre-anesthetic level Circulation 2- SBP +/= 20 points of pre-anesthetic level Consciousness 2- Awake and alert oriented x 3 Consciousness 2- Awake and alert oriented x 3 O2 Saturation 1- Needs O2 inhalation to maintain O2 saturation of 90% O2 Saturation 1- Needs O2 inhalation to maintain O2 saturation of 90% Respiratory 2- Able to deep breathe and cough well Respiratory 2- Able to deep breathe and cough well Total Score 9 Total Score 9 Contrast Agent: Isovue Diagnostic Contrast: 177 ml Total Contrast: 177 ml Fluoro Dose: 1462 mGy Activated Clotting Time Time Seconds to Clot 01:54 PM 203 03:08 PM 156 Procedure Log Time Note Enter By 01:17 PM 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 well-controlled diabetes, hypertension, asthma, cigarette smoking) ejohnson : PM Meet and greet completed ejohnson : PM Sign in performed according to hospital policy. ejohnson : PM Procedure start : ejohnson : PM Time: :19 Oxygen on at 4 L/min per nasal cannula by Jess Burgos RN ejohnson :23 PM CathStat 01:24 PM Vitals capture started with the following parameters, Patient=Adult, Interval=5 min, Initial Oyvgkmup=010 mmHg, Deflation Rate=5 mmHg, Cuff placed on Right Arm 01: PM Recorded ECG: HR=78 Condition=Condition 1 :24 PM Recorded ECG: HR=78 Condition=Condition 1 01:27 PM Vitals capture started with the following parameters, Patient=Adult, Interval=5 min, Initial Cnhqsmft=326 mmHg, Deflation Rate=5 mmHg, Cuff placed on Right Arm 01:29 PM HR=78 bpm, FYDU=039/79 mmhg, TqB4=341.0 %, Resp=21 B/min, Comment=SR 01:30 PM Time out performed according to hospital policy ejohnson :30 PM Time: 13:30 Patient comfortable and pain free: Yes ejohnson :30 PM Time: 13:30LOC: 5 = Fully awake and oriented or at pre-proc level ejohnson :31 PM Time: 13:30 Fentanyl 25 mcg Intravenous Given by Jess Burgos RN ejohnson 01:31 PM Time: 13:31 10 ml Lidocaine 2% to right groin Subcutaneous Given by Dashawn Santos MD ejohnson 01:32 PM Access obtained by percutaneous puncture. 6Fr 10cm Terumo [place] sheath placed in right Femoral artery. [id number] ejohnson 01:32 PM Micro-Introducer Kit utilized for sheath placement ejohnson 01:33 PM HR=78 bpm, SJFQ=163/86 mmhg, SpO2=99.0 %, Resp=20 B/min, Comment=SR 01:35 PM Bolus angiogram of right Descending aorta complete: 2 ml/sec for a total of 4 mls ejohnson 01:35 PM 5Fr FR 4 catheter inserted over the wire DNC ejohnson 01:36 PM Recorded Pressure: Ao, HR=79, Condition=Condition 1 (Aorta) Ao 169/78/115 01:36 PM RCA angiography performed in multiple views. ejohnson 01:37 PM Recorded Pressure: Ao, HR=74, Condition=Condition 1 (Aorta) Ao 120/70/91 01:38 PM HR=84 bpm, MCEU=129/82 mmhg, SpO2=99.0 %, Resp=16 B/min, Comment=SR 01:39 PM Recorded Pressure: Ao, HR=90, Condition=Condition 1 (Aorta) Ao 153/97/123 01:39 PM Recorded Pressure: Ao, HR=90, Condition=Condition 1 (Aorta) Ao 150/97/122 01:39 PM SVG to the RPDA angio performed in multiple views. ejohnson 01:40 PM Recorded Pressure: Ao, HR=83, Condition=Condition 1 (Aorta) Ao 147/84/114 01:40 PM Recorded Pressure: Ao, HR=81, Condition=Condition 1 (Aorta) Ao 152/86/117 01:41 PM Left YOSELIN to the LAD angio performed in multiple views. ejohnson 01:41 PM Catheter removed ejohnson 01:41 PM 5Fr FL 4 catheter inserted over the wire DNC ejohnson 01:43 PM Recorded Pressure: Ao, HR=76, Condition=Condition 1 (Aorta) Ao 143/84/110 01:43 PM HR=76 bpm, WRTP=739/76 mmhg, SpO2=98.0 %, Resp=20 B/min, Comment=SR 01:44 PM Catheter removed ejohnson 01:45 PM Time: 13:30 Patient comfortable and pain free: Yes ejohnson 01:45 PM Time: 13:30LOC: 4 = Oriented but drowsy ejohnson 01:45 PM 6Fr XB LAD 3.5 [place] Bright-Tip guide catheter was used to cannulate the PCI vessel successfully. reused? No ejohnson 01:46 PM Recorded Pressure: Ao, HR=77, Condition=Condition 1 (Aorta) Ao 156/69/106 01:47 PM LCA angiography performed in multiple views. ejohnson 01:48 PM HR=76 bpm, PJCV=737/76 mmhg, SpO2=97.0 %, Resp=20 B/min, Comment=SR 01:50 PM Inflation device was opened. ejohnson 01:50 PM .014 [place] 190cm guide wire across target lesion- successful. reused? No ejohnson 01:53 PM Recorded Pressure: Ao, HR=76, Condition=Condition 1 (Aorta) Ao 151/71/106 01:53 PM HR=77 bpm, NNNB=002/76 mmhg, SpO2=96.0 %, Resp=20 B/min, Comment=SR 01:54 PM At 13:54 the ACT was 203 seconds, no more Heparin at this time per Dr. Santos ejohnson 01:55 PM Guide wire removed intact. ejohnson 01:55 PM Guide catheter removed intact. ejohnson 01:56 PM 6Fr JL4 [place] Bright-Tip guide catheter was used to cannulate the PCI vessel successfully. reused? No ejohnson 01:58 PM HR=70 bpm, VKGH=676/77 mmhg, SpO2=96.0 %, Resp=20 B/min, Comment=SR 02:00 PM Guide catheter removed intact. ejohnson 02:00 PM Time: 13:45LOC: 5 = Fully awake and oriented or at pre-proc level ejohnson 02:00 PM Time: 13:45 Patient comfortable and pain free: Yes ejohnson 02:00 PM Procedure completed at 14:00 ejohnson 02:01 PM Sign out completed: Radiation Dose 1462 mGy Fluoro Time: 10 Isovue 370 - 200ml contrast 177 ml given by Dashawn Santos MD. Complications: NoneCardiac Rehab Consult needed: NoConfirmed administered medications: Yes ejohnson 02:01 PM Isovue 370 - 200ml,1 Bottle(s) used. ejohnson 02:01 PM Estimated Blood Loss: minimal ejohnson 02:02 PM Post ECG NSR ejohnson 02:02 PM Post Blood Pressure 154/77 ejohnson 02:02 PM 14:02 Post Pulses Bilateral DP & PT 1+ ejohnson 02:02 PM Information taught Cardiac Cath ejohnson 02:03 PM HR=76 bpm, VVVH=784/78 mmhg, SpO2=94.0 %, Resp=20 B/min, Comment=SR 02:05 PM Education needs Responsibilities of Patient in Care and Plan of Care ejohnson 02:05 PM Learning barriers :None ejohnson 02:05 PM Education Methods Verbal ejohnson 02:05 PM Education evaluation Able to repeat information ejohnson 02:07 PM Site status No bleeding/hematoma - Rt Groin as reported by at 14:07 ejohnson 02:07 PM Sheath left in place to be pulled on floor/holding area ejohnson 02:07 PM Report given to Jerman GAITAN Pt taken to Holding room Room #2. 14:07 ejohnson 02:07 PM Plavix, Effient or Brilinta given No ejohnson 02:10 PM Report given to Alma GAITAN Pt taken to 2A Room #32. 14:10 ejohnson 02:10 PM Delay to floor: patient has a sheath ejohnson 02:10 PM Family placed in consult room. ejohnson 02:10 PM Complications: None ejohnson 02:11 PM Coronary Dominance: right ejohnson 02:11 PM Lesion found in Proximal RCA. Pre Stenosis: 80 ejohnson 02:12 PM Lesion found in Mid RCA. Pre Stenosis: 60 ejohnson 02:12 PM Lesion found in Proximal LAD. Pre Stenosis: 100 ejohnson 02:12 PM Lesion found in Proximal Circumflex. Pre Stenosis: 40 ejohnson 02:13 PM Lesion found in Ramus. Pre Stenosis: 40 ejohnson 02:13 PM Right Coronary, Right Posterior Descending Arteries with Right Posterolateral and Acute Marginal branches with 80 % stenosis. ejohnson 02:13 PM Proximal Left Anterior Descending Coronary Artery with 100% stenosis. ejohnson 02:14 PM Circumflex, Obtuse Marginal, Left Posterior Descending, and Left Posterolateral Coronary Arteries with 40 % stenosis. ejohnson 02:14 PM Ramus with 40% stenosis. ejohnson 02:19 PM Patient out of room: 14:19 ejohnson 02:45 PM RTS present. bipap applied and breathing treatment given. green catheter inserted. patient tolerated well. 500cc of varela yellow urine immediately mprater 03:[address] Santos at bedside. patient states "i feel a little better" mprater 03:23 PM Arterial sheath pulled using manual compression and V+ Pad for 15 minutes by Mary Ellen Briseno RN mprater 03:30 PM Hospitalist doctor in to see patient mprater 03:38 PM Arterial sheath pulled, V+Pad closure device used and was Successful S/N. mprater 05:07 PM report given to Rosie on ICU, Patient transported to ICU mprater Complications Complication None Hemodynamics Pressures Site Systolic/A Wave Diastolic/V Wave Mean AO 169 78 115 AO 120 70 91 AO 153 97 123 AO 150 97 122 AO 147 84 114 AO 152 86 117 AO 143 84 110 AO 156 69 106 AO 151 71 106 Post Procedure Information Blood Pressure: 154/77 mmHg Rhythm: NSR Post procedural instructions were given Site Checks Time Location Status Staff Sheath In? Note 02:07 PM Rt Groin No bleeding/hematoma 02:56 PM Rt Groin No bleeding/ No Hematoma Jerman Beasley RT (R) Yes 02:30 PM Rt Groin No bleeding/ No Hematoma Mary Ellen Briseno RN Yes 02:45 PM Rt Groin No bleeding/ No Hematoma Mary Ellen Briseno RN Yes 03:00 PM Rt Groin No bleeding/ No Hematoma Mary Ellen Briseno RN Yes 03:15 PM Rt Groin No bleeding/ No Hematoma Mary Ellen Briseno RN Yes 03:30 PM Rt Groin No bleeding/ No Hematoma Mary Ellen Briseno RN 03:45 PM Rt Groin No bleeding/ No Hematoma Mary Ellen Briseno RN 04:00 PM Rt Groin No bleeding/ No Hematoma Mary Ellen Briseno RN 04:19 PM Rt Groin No bleeding/ No Hematoma Jerman Beasley RT (R) 04:34 PM Rt Groin No bleeding/ No Hematoma Jerman Beasley RT (R) 05:00 PM Rt Groin No bleeding/ No Hematoma Mary Ellen Briseno RN Pulses Time Site Pre-Procedure Post-Procedure Note 11/17/2017 1:28:00 PM Bilateral DP & PT 1+ 2:02:00 PM Bilateral DP & PT 1+ 11/17/2017 3:00:00 PM Bilateral DP & PT 1+ 11/17/2017 4:00:00 PM Bilateral DP & PT 1+ 11/17/2017 4:19:00 PM Bilateral DP & PT 1+ 11/17/2017 4:34:00 PM Bilateral DP & PT 1+ Updated by Mary Ellen Briseno RN on 11/17/2017 5:09:21 PM Mary Ellen Briseno RN electronically signed on 11/17/2017 5:09:42 PM with status of Final
[2017-11-17] MEDS: Furosemide 240 MG in D5% in Water 96 ML IVC SCH (17:39)
[2017-11-17] MEDS: Isosorbide MONOnitrate (24 HR) 30 MG TAB.ER.24H PO SCH (18:05)
[2017-11-18] MEDS: CeFAZolin Premix DUPLEX 2,000 MG/50 ML BAG IVPB SCH ×3 (00:09→20:39)
[2017-11-18] MEDS: *HR* HYDROcodone/Acet 5/325 mg TABLET PO PRN ×2 (01:02→17:16)
[2017-11-18 01:07] LABS: Basophils % 0.3 %; Eosinophils # 0.1 K/mcL (0.0-0.6); Eosinophils % 0.6 %; Hematocrit 26.5 % (37.5-50.1); Hemoglobin 8.3 g/dL (12.9-16.9); Immature Granulocytes % 1.8 % (0-4); Lymphocytes # 0.9 K/mcL (0.6-4.6); Lymphocytes % 7.4 %; Mean Corpuscular HGB Conc 31.3 g/dL (31.6-35.5); Mean Corpuscular Volume 92.7 fL (83.0-100.0); Mean Platelet Volume 10.4 fL (9.4-12.4); Monocytes # 1.3 K/mcL (0.0-1.3); Neutrophils # 9.9 K/mcL (1.6-8.9); Platelet Count 156 K/mcL (140-400); Red Blood Count 2.86 M/mcL (4.19-5.50); Red Cell Distribution Width 14.8 % (11.5-14.5); Segmented Neutrophils % 79.9 %
[2017-11-18 01:25] LABS: Magnesium 1.7 mg/dL (1.6-2.6); Potassium 4.1 mEq/L (3.5-4.5)
[2017-11-18 01:26] LABS: Calcium 9.3 mg/dL (8.6-10.8)
[2017-11-18] MEDS: Budesonide/Formoterol 160/4.5 MDI IH SCH ×2 (08:10→19:47)
--- NOTE | 2017-11-18 08:10 | Nephrology Consult Note ---
Date of Encounter: 11/18/17 Time of Encounter: 08:08 Assessment and Plan (1) Chronic kidney disease, stage IV (severe) Current Visit: Yes Status: Acute The patient's serum creatinine is increased since cardiac catheterization yesterday. He seems to be diuresing well. I will continue with the Lasix drip for another 24 hours. I would avoid all nephrotoxins including vancomycin. If possible I would treat his cellulitis with an alternative less nephrotoxic antibiotic. There is no indication for acute dialysis at this point since the patient is symptomatically better. We will continue to monitor his renal function while he is here in the hospital. The blood pressure is somewhat on the low side. I am going to discontinue the amlodipine. (2) Type 2 diabetes mellitus with diabetic chronic kidney disease Current Visit: Yes Status: Acute Qualifiers: Diabetes mellitus assisted insulin use: with watermaster use Chronic kidney disease stage: stage 4 (severe) Qualified Code(s): E11.22 - Type 2 diabetes mellitus with diabetic chronic kidney disease; N18.4 - Chronic kidney disease, stage 4 (severe); N18.4 - Chronic kidney disease, stage 4 (severe); N18.4 - Chronic kidney disease, stage 4 (severe); N18.4 - Chronic kidney disease, stage 4 (severe); Z79.4 - retirement (current) use of insulin; Z79.4 - retirement ( current) use of insulin; Z79.4 - retirement (current) use of insulin; Z79.4 - retirement (current) use of insulin (3) Anemia in CKD (chronic kidney disease) Current Visit: Yes Status: Acute Qualifiers: Chronic kidney disease stage: stage 4 (severe) Qualified Code(s): N18.4 - Chronic kidney disease, stage 4 (severe); D63.1 - Anemia in chronic kidney disease; D63.1 - Anemia in chronic kidney disease (4) NSTEMI (non-ST elevated myocardial infarction) Current Visit: Yes Status: Suspected History of Present Illness - History of Present Illness This is a 62-year-old male who is followed as an outpatient for progressive stage IV chronic kidney disease in the setting of diabetes and hypertension. Patient was recently admitted to the hospital with the complaints of fever and nausea. He has an ongoing ulcer on his right forefoot where he had previous surgery. He was noted to have an elevated troponin as well as a history of coronary artery disease. He is status post CABG as well as stent placement. The patient underwent a cardiac catheterization yesterday. Post procedure he became acutely short of breath and required BiPAP placement as well as ICU admission. This morning the patient reports that he is feeling better. He denies any shortness of breath or chest pain. He is sitting on the edge of the bed wearing a nasal cannula and appears comfortable. He does have some swelling of his right lower extremity where he has the forefoot foot ulcer as well as associated cellulitis. Patient does report significant weight gain over the past several weeks although clinically he appears to be relatively stable as far as his edema is concerned. Baseline creatinine ranges from 2.5-3 with a GFR in the low to mid 20s. Current creatinine is 3.46. Preprocedure his creatinine was 2.85. The cardiac catheter that showed 2 of 3 bypass grafts were patent as well as the previous stent. Medical therapy was recommended. The patient was started on a Lasix drip overnight. Urine output is recorded is approximately 1.4 L. Past Med Surg Social Fam HX - Past Medical History Medical history: arthritis, CHF, COPD, coronary artery disease, diabetes, hyperlipidemia, hypertension, myocardial infarction, peripheral artery disease, renal disease Psychiatric history: depression - Past Surgical History Surgical History: cholecystectomy, coronary bypass (CABG), orthopedic, other - Social History Smoking Status: Never smoker Smokeless Tobacco Status: No Alcohol use: none Drug use: none - Family History Father Living Status: Hx Family Cardiac Disorders: Yes Hx Family Respiratory Disorders: Yes (COPD) Hx Family Cancer: No Hx Family GI Disorders: No Hx Family Endocrine Disorder: No Hx Family Neuromuscular Disorders: No Hx Family Neurologic Disorders: No Hx Family HEENT Disorders: No Hx Family Autoimmune Disorders: No Medications and Allergies Allopurinol [Zyloprim] 100 mg PO DAILY 07/25/15 [History] Citalopram Hydrobromide [Celexa] 20 mg PO HS 07/25/15 [History] Gabapentin [Neurontin] 300 mg PO TID 07/25/15 [History] Insulin Glargine,Hum.rec.anlog [Lantus Solostar] 64 unit SQ BID 07/25/15 [ History] Multivitamin/Iron/Folic Acid [Centrum Complete Multivit Tab] 1 tab PO DAILY [History] Ranitidine HCl [Zantac] 150 mg PO BID 07/25/15 [History] Albuterol Sulfate [Albuterol Inhaler] 2 puff IH Q4HR PRN 07/26/15 [History] Hydrocodone/Acetaminophen [[place] 5-325 Tablet] 2 tab PO BID PRN 07/26/15 [ History] Budesonide/Formoterol 160/4.5 [Symbicort 160/4.5] 2 puff IH BID 07/24/16 [ History] Hydralazine HCl 25 mg PO TID 07/24/16 [History] Aspirin 81 mg PO DAILY tab.chew 08/22/16 [Rx] Atorvastatin [Lipitor] 80 mg PO HS tablet 08/22/16 [Rx] Cranberry Fruit Extract [Cranberry] 2,000 mg PO DAILY 08/29/16 [History] Cyanocobalamin (Vitamin B-12) [Vitamin B12] 2,500 mcg PO DAILY 08/29/16 [History ] Metoprolol XL (24 HR) Succ [Toprol Xl] 25 mg PO DAILY 08/29/16 [History] amLODIPine [Norvasc] 2.5 mg PO DAILY 10/08/17 [History] Insulin LISPRO [HumaLOG] 0 units SQ TIDWM PRN 11/15/17 [History] 3 Allergy/AdvReac Type Severity Reaction Status Date / Time acetaminophen Allergy See Verified 11/14/17 18:50 [From Darvocet-N] Comments Zolpidem [From Ambien] Allergy See Verified 11/14/17 18:50 Comments pregabalin [From Lyrica] AdvReac Unknown jittery, Verified 11/14/17 18:50 altered mental status propoxyphene AdvReac Unknown jittery, Verified 11/14/17 18:50 altered mental status Review of Systems Constitutional: as per HPI, fever(s), weakness Nose, mouth and throat: no dizziness, no headache(s) Cardiovascular: dyspnea, dyspnea on exertion, edema, leg edema, leg ulcers, no chest pain, no palpitations Respiratory: dyspnea, dyspnea on exertion, no cough Gastrointestinal: no abdominal pain, no change in bowel habits Genitourinary Male: as per HPI Musculoskeletal: no muscle weakness, no numbness Integumentary: erythema, skin ulcer, wounds, no hirsutism, no striae Neurological: as per HPI Psychiatric: no depression, no difficulty concentrating Endocrine: as per HPI Hematologic/Lymphatic: no easy bruising, no lymphadenopathy Allergic/Immunologic: as per HPI Exam - Vital Signs Vital signs: Initial Vital Signs Temp Pulse Resp BP Pulse Ox 99.9 F H 89 16 138/64 96 11/14/17 18:46 11/14/17 18:46 11/14/17 18:46 11/14/17 18:46 11/14/17 18:46 Vital Signs - Last 8 Hours Temp Pulse Resp BP Pulse Ox 11/18/17 07:28 98.3 F 11/18/17 06:00 75 18 98/50 95 11/18/17 05:00 74 14 134/57 96 11/18/17 04:19 98.2 F 11/18/17 04:00 72 14 128/66 94 11/18/17 03:46 73 14 135/57 95 11/18/17 03:45 73 11/18/17 02:00 74 16 126/49 95 11/18/17 01:05 84 16 95/70 96 Intake and Output 11/17/17 11/18/17 11/18/17 23:59 07:59 15:59 Intake Total 890 / 890 50 / 50 Output Total 1250 / 1250 800 / 800 Balance -360 / -360 -750 / -750 Intake: IV Fluids 690 / 690 50 / 50 0.9 % Sodium Chloride 1,000 ML 236 / 236 @ 100 mls/hr IVC .Q10H [facility]ES[facility] Rx#: [id number] Heparin 25,000 UNIT/500 ML D5W 454 / 454 25,000 unit In 500 ml @ 6.3 UNIT/KG/HR 20.097 mls/hr IVC . Q24H [facility]ES[facility] Rx#:[id number] Ancef Premix DUPLEX 2,000 mg In 50 / 50 50 ml @ 100 mls/hr IVPB Q8HR [facility] Rx#:[id number] Oral 200 / 200 0 / 0 Output: Catheter 1250 / 1250 800 / 800 Other: Meal Dinner Percent of Meal Consumed 95% Weight 124.1 kg Blood Glucose* 187 89 - General Appearance Exam: The patient is sitting on edge of his bed eating breakfast. He is wearing a nasal cannula. He is in no acute distress. He is alert and oriented. Lungs symmetric breath sounds otherwise clear. Heart regular rate and rhythm with a 2 /6 systolic ejection murmur. Abdomen shows normal bowel sounds of bruits masses , megaly or tenderness. 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 The right lower extremity shows edema as well as evidence of erythema consistent with cellulitis. Left lower extremity has minimal swelling. Bloom catheter is in place. Results - Lab Results 11/18/17 01:00 11/18/17 01:00 Most recent lab results Calcium 9.3 mg/dL (8.6-10.8) D 11/18/17 01:00 Magnesium 1.7 mg/dL (1.6-2.6) 11/18/17 01:00 Consult Discharge Plan - Plan Referrals: Lala Beatty MD [Primary Care Provider] - 11/21/17 2:00 pm ()
[2017-11-18] MEDS: Insulin LISPRO 300 UNITS/3 ML VIAL SQ SCH ×4 (08:28→20:39)
[2017-11-18] MEDS: Gabapentin 300 MG CAPSULE PO SCH ×2 (08:30→20:38)
[2017-11-18] MEDS: Cyanocobalamin (B-12) 1,000 MCG TABLET PO SCH (08:30)
[2017-11-18] MEDS: Isosorbide MONOnitrate (24 HR) 30 MG TAB.ER.24H PO SCH (08:30)
[2017-11-18] MEDS: hydrALAZINE 25 MG TABLET PO SCH ×2 (08:30→20:38)
[2017-11-18] MEDS: Metoprolol XL (24 HR) Succ 25 MG TAB.ER.24H PO SCH (08:30)
[2017-11-18] MEDS: *HR* Ticagrelor 90 MG TABLET PO SCH ×2 (08:30→20:38)
[2017-11-18] MEDS: Aspirin 81 MG TAB.CHEW PO SCH (08:30)
[2017-11-18] MEDS: Famotidine 20 MG TABLET PO SCH (08:31)
[2017-11-18] MEDS: Multivit/Ca/Min/Fe/FA 1 TAB TABLET PO SCH (08:31)
[2017-11-18] MEDS: Insulin DETEMIR 100 UNIT/ML X5UNITS SQ SCH ×2 (08:57→20:40)
--- NOTE | 2017-11-18 09:00 | Internal Med Progress Note ---
Date of Encounter: 11/18/17 Time of Encounter: 08:30 - Assessment and plan (1) Acute respiratory failure with hypoxia Current Visit: Yes Status: Acute Assessment and plan: Acute respiratory failure secondary to CHF exacerbation Currently on Lasix gtt and clinically improving saturating well on 4L NC, reports of being 3L NC at home continue to monitor daily weights, strict I/Os fluid restriction diet will closely monitor respiratory status (2) Acute exacerbation of CHF (congestive heart failure) Current Visit: Yes Status: Acute Assessment and plan: as listed above Qualifiers: Congestive heart failure type: unspecified congestive heart failure type Qualified Code(s): I50.9 - Heart failure, unspecified (3) Usbpa-ye-zjamkih kidney injury Current Visit: Yes Status: Acute Assessment and plan: Renal function worsened from previous day s/p [facility] nephrology on board and consultation appreciated continue lasix gtt as per nephro Vancomycin discontinued on 11/17/17 however trough is 22.8 will continue to avoid nephro toxic agents and closely monitor renal function Qualifiers: Acute renal failure type: unspecified Chronic kidney disease stage: stage 4 (severe) Qualified Code(s): N17.9 - Acute kidney failure, unspecified; N18.4 - Chronic kidney disease, stage 4 (severe); N18.4 - Chronic kidney disease , stage 4 (severe); N18.4 - Chronic kidney disease, stage 4 (severe); N18.4 - Chronic kidney disease, stage 4 (severe) (4) Foot ulcer due to secondary DM Current Visit: No Status: Acute Assessment and plan: Podiatry on board, no surgical intervention recommended continue wound care wound cultures positive for Group G Streptococcus will continue Cefazolin for 10-14 days depending on clinical response (Day 5) (5) Anemia in CKD (chronic kidney disease) Current Visit: Yes Status: Acute Assessment and plan: H&H low but acceptable no acute bleeding reported continue to closely monitor Qualifiers: Chronic kidney disease stage: stage 4 (severe) Qualified Code(s): N18.4 - Chronic kidney disease, stage 4 (severe); D63.1 - Anemia in chronic kidney disease; D63.1 - Anemia in chronic kidney disease (6) Cellulitis Current Visit: Yes Status: Acute Assessment and plan: clinically improving as per the markings on LE continue Cefazolin at this time Qualifiers: Site of cellulitis: other site Qualified Code(s): L03.818 - Cellulitis of other sites (7) CAD (coronary artery disease) Current Visit: Yes Status: Chronic Assessment and plan: S/P C on 11/17/17 which reported moderate to severe atherosclerotic CAD. S/p CABG 2 of 3 patent bypass grafts, Patent Lt. Main stent with patent ramus and CIRC. Optimization of medical therapy recommended. added Imdur continue aspirin, brilinta, statin, BB chest pain free at this time Qualifiers: Coronary Disease-Associated Artery/Lesion type: [place] artery [place] vs. transplanted heart: [place] heart Associated angina: with unstable angina Qualified Code(s): I25.110 - Atherosclerotic heart disease of [place] coronary artery with unstable angina pectoris (8) Diabetes Current Visit: Yes Status: Chronic Assessment and plan: BG within acceptable range continue sliding scale insulin algorithm monitor FS and BG ADA diet Qualifiers: Diabetes mellitus type: type 2 Diabetes mellitus complication status: with circulatory complication Diabetes mellitus complication detail: with peripheral angiopathy without gangrene Diabetes mellitus bed bug exterminator insulin use : with jail use Qualified Code(s): E11.51 - Type 2 diabetes mellitus with diabetic peripheral angiopathy without gangrene; Z79.4 - long term (current ) use of insulin (9) NSTEMI (non-ST elevated myocardial infarction) Current Visit: Yes Status: Suspected Assessment and plan: S/P [facility] on 11/17/17 which reported moderate to severe atherosclerotic CAD. S/p CABG 2 of 3 patent bypass grafts, Patent Lt. Main stent with patent ramus and CIRC. Optimization of medical therapy recommended. (10) Sepsis Current Visit: Yes Status: Resolved Assessment and plan: secondary to LE cellulitis continue IV abx Qualifiers: Sepsis type: Streptococcus, other Qualified Code(s): A40.8 - Other streptococcal sepsis (11) Obesity (BMI 30-39.9) Current Visit: Yes Status: Chronic (12) DVT prophylaxis Current Visit: Yes Status: Acute Assessment and plan: Heparin SQ - Subjective Interval history: Patient seen and examined at bedside. Reports of improvement in his breathing compared to previous day S/P [facility] on 11/17/17 which reported moderate to severe atherosclerotic CAD. S/p CABG 2 of 3 patent bypass grafts, Patent Lt. Main stent with patent ramus and CIRC. Optimization of medical therapy recommended. Pt noted to have worsening respiratory distress along with CRISTHIAN on CKD Currently on Lasix drip and clinically improving. - Constitutional Vitals: Temp Pulse Resp BP Pulse Ox 98.3 F 76 16 141/59 98 11/18/17 07:28 11/18/17 08:13 11/18/17 08:13 11/18/17 08:13 11/18/17 08:13 General appearance: Present: cooperative, A&O X 3, no acute distress, obese - Head Head exam: Present: atraumatic, normocephalic - Eye Eye exam: Present: conjuntiva pink, sclera anicteric - Respiratory Respiratory exam: Absent: respiratory distress, wheezes (bibasilar crackles ) - Cardiovascular Cardiovascular exam: Present: RRR, +S1, +S2. Absent: diastolic murmur, gallop, rubs, systolic murmur - GI/Abdominal GI/Abdominal exam: Present: normal bowel sounds, soft, no peritoneal signs. Absent: distended, tenderness - Extremities Exam Extremities exam: Present: warm, radial pulses palpable and symmetrical (s/p right forefoot amputation, stump site dressing intact, RLE edema along with erythema concerning for cellulitis, s/p left great toe amputation, mild LLE edema). Absent: calf tenderness - Neurological Exam Neurological exam: Present: alert, oriented X3 - Psychiatric Psychiatric exam: Present: normal affect, normal mood Internal Medicine: Result - Labs CBC & Chem 7: 11/18/17 01:00 11/18/17 01:00 Labs: Short CBC 11/18/17 Range/Units 01:00 WBC 12.4 H (4.3-11.1) K/mcL Hgb 8.3 L (12.9-16.9) g/dL Hct 26.5 L (37.5-50.1) % Plt Count 156 (140-400) K/mcL Neutrophils # 9.9 H (1.6-8.9) K/mcL BMP 11/18/17 01:00 Sodium 137 Potassium 4.1 Chloride 104 Carbon Dioxide 20 BUN 52 H Creatinine 3.46 H Glucose 132 H Calcium 9.3 D - ABG Interpretation ABG results: PT/INR, D-dimer PT 13.9 Seconds (9.4-12.1) H 11/14/17 20:56 - VTE Reasons for not Prescribing Prophylaxis: Not indicated-Anticoagulated or INR therapeutic Consult Discharge Plan - Plan Referrals: Lala Beatty MD [Primary Care Provider] - 11/21/17 2:00 pm ()
[2017-11-18] MEDS: *HR* Heparin 5,000 UNIT/ML VIAL SQ SCH ×2 (09:02→20:39)
--- NOTE | 2017-11-18 10:58 | Cardiology Progress Note ---
Date of Encounter: 11/18/17 Time of Encounter: 09:15 Assessment and Plan (1) NSTEMI (non-ST elevated myocardial infarction) Current Visit: Yes Status: Suspected Per Cardiology: Peak trop 5.88-- NSTEMI in the setting of a wound infection, possible sepsis, and CKD. Known history of CAD, prior CABG, prior PCI. Patient currently chest pain-free. On aspirin, Brilinta, statin, BB. Echo & LHC showed: Impressions: Technically sub-optimal due to body habitus. LVEF 60%. Normal LV chamber size and function. Mild concentric left ventricular hypertrophy. Atypical septal motion consistent with post-operative status. Indeterminate diastolic function. Right ventricle grossly appears dilated with normal function. Unable to estimate RVSP due to lack of TR jet. No obvious significant valvular dysfunction. Left Ventricular Wall Motion: Rest Echo Findings All wall segments showed normal motion. S/p LHC: Lesion Findings/Interventions * Left Main Coronary Artery The LMCA has patent stents present from a previous procedure. The LMCA is angiographically free of disease. * Left Anterior Descending There is a 100% stenosis in the Proximal LAD. * Circumflex There is a 40% non-obstructive stenosis in the Proximal Circumflex. * Ramus There is a 40% non-obstructive stenosis in the Ramus. * Right Coronary Artery There is a 80% stenosis in the Proximal RCA, ostial. There is a 60% stenosis in the Mid RCA. Additional Findings: Grafts * The saphenous vein graft to the Right PDA is patent. [place] flow is 3. * The saphenous vein graft to the Ramus is occluded. * The left internal mammary graft to the Mid LAD is patent. [place] flow is 3. (2) CAD (coronary artery disease) Current Visit: Yes Status: Chronic Per Cardiology: Hx of CABG with Dr. King. Qualifiers: Coronary Disease-Associated Artery/Lesion type: [place] artery [place] vs. transplanted heart: [place] heart Associated angina: with unstable angina Qualified Code(s): I25.110 - Atherosclerotic heart disease of [place] coronary artery with unstable angina pectoris (3) Renal failure (ARF), acute on chronic Current Visit: No Status: Chronic Per Cardiology: Hx of CKD IV. Reported 50 lb weight gain. Now off BiPap, breathing improved. On Lasix gtt. Nephrology following, no HD warranted. Qualifiers: Acute renal failure type: unspecified Chronic kidney disease stage: stage 4 (severe) Qualified Code(s): N17.9 - Acute kidney failure, unspecified; N18.4 - Chronic kidney disease, stage 4 (severe); N18.4 - Chronic kidney disease , stage 4 (severe); N18.4 - Chronic kidney disease, stage 4 (severe); N18.4 - Chronic kidney disease, stage 4 (severe) Discussion w patient/family: The assessment and plan as outlined above was discussed with the patient who expressed understanding and agreement. All questions were answered. Thank you for involving us in the care of your patient. Please call with any questions. Subjective Principal diagnosis: Right foot cellulitis, Elevated trop Interval history: Reports breathing improved. He denies any chest pain or palpitations. Denies any active bleeding or blood loss. Denies any concerns with his right groin site. Objective Vital Signs, Last 4 Hours Temp Pulse Resp BP Pulse Ox 11/18/17 10:00 72 18 133/60 98 11/18/17 09:00 74 18 133/56 98 11/18/17 08:13 75 16 141/59 98 11/18/17 07:28 98.3 F General: Conversant HEENT: Atraumatic, Normocephaly Cardiac: Reg Rate and Rhythm, Normal S1 and S2, No Murmur Lungs: Normal Breath Sounds, No Wheeze, Rales, Rhonchi, Other (slightly diminished to bases) Neuro: Alert and responsive, No focal deficits noted Abdomen: Soft, Non-Tender, Other (obese, nontender) Skin: Other (Bilateral LE erythema) Musculoskeletal: No Chest Wall Tenderness Extremities: Other (+1 nonpitting bilateral LE edema) Results 11/18/17 01:00 11/18/17 01:00 Lab Results Laboratory Tests 11/14/17 11/18/17 11/18/17 19:18 01:00 01:00 WBC 26.4 H D 12.4 H Hgb 8.3 L Hct 26.5 L Creatinine 3.46 H Est GFR (Non-Af Amer) 18 L Intake & Output 11/15/17 11/16/17 11/17/17 11/18/17 23:59 23:59 23:59 23:59 Intake Total 3040 / 3040 2285 / 2285 2308 / 2308 290 / 290 Output Total 0 / 0 1900 / 1900 1450 / 1450 800 / 800 Balance 3040 / 3040 385 / 385 858 / 858 -510 / -510 Weight 158.984 kg 124.1 kg Active Medications Hydrocodone Bitart/Acetaminophen ([place] 5-325 Mg) 2 tab PO BID PRN PRN Reason: Pain Stop: 05/16/18 22:10 Last Admin: 11/18/17 01:02 Dose: 2 tab Albuterol Sulfate (Albuterol Inhaler) 2 puff IH Q4HR PRN PRN Reason: Shortness Of Breath Stop: 05/16/18 22:10 Last Admin: 11/17/17 10:18 Dose: 2 puff Allopurinol (Zyloprim) 100 mg PO DAILY [facility] Stop: 05/17/18 09:01 Last Admin: 11/18/17 08:30 Dose: 100 mg Aspirin (Aspirin) 81 mg PO DAILY [facility] Stop: 05/17/18 09:01 Last Admin: 11/18/17 08:30 Dose: 81 mg Atorvastatin Calcium (Lipitor) 80 mg PO HS [facility] Stop: 05/17/18 21:01 Last Admin: 11/17/17 20:40 Dose: 80 mg Budesonide/Formoterol Fumarate (Symbicort) 2 puff IH BIDR KESHAWN PRN Reason: Protocol Stop: 05/17/18 10:01 Last Admin: 11/18/17 08:10 Dose: Not Given Citalopram Hydrobromide (Celexa) 10 mg PO HS [facility] Stop: 05/17/18 21:01 Last Admin: 11/17/17 20:41 Dose: 10 mg Cyanocobalamin (Vitamin B12) 2,500 mcg PO DAILY [facility] Stop: 05/17/18 09:01 Last Admin: 11/18/17 08:30 Dose: 2,500 mcg Dextrose/Water (Dextrose 50% (Syg)) 25 ml IVP AD PRN PRN Reason: Hypoglycemia Stop: 05/16/18 22:15 Famotidine (Pepcid) 20 mg PO DAILY [facility] Stop: 05/20/18 09:01 Last Admin: 11/18/17 08:31 Dose: 20 mg Gabapentin (Neurontin) 300 mg PO BID [facility] Stop: 05/17/18 09:01 Last Admin: 11/18/17 08:30 Dose: 300 mg Glucagon (Glucagen) 1 mg IM ONCE PRN PRN Reason: Hypoglycemia Stop: 05/16/18 22:15 Glucose (Gluctose) 15 gm PO ONCE PRN PRN Reason: Hypoglycemia Stop: 05/16/18 22:15 Glucose (Gluctose) 30 gm PO ONCE PRN PRN Reason: Hypoglycemia Stop: 05/16/18 22:15 Heparin Sodium (Porcine) (Heparin) 5,000 unit SQ Q12H [facility] Stop: 05/20/18 09:01 Last Admin: 11/18/17 09:02 Dose: 5,000 unit Hydralazine HCl (Hydralazine) 25 mg PO BID [facility] Stop: 05/17/18 09:01 Last Admin: 11/18/17 08:30 Dose: 25 mg Dextrose (Dextrose 5%) 1,000 mls @ 100 mls/hr IVC .Q10H PRN PRN Reason: HYPOGLYCEMIA Stop: 05/16/18 22:15 Furosemide 240 mg/ Dextrose 120 mls @ 5 mls/hr IVC .Q24H [facility] PRN Reason: 10 MG/HR Stop: 05/19/18 16:01 Last Admin: 11/17/17 17:39 Dose: 10 mg/hr, 5 mls/hr Cefazolin Sodium (Ancef Premix Duplex) 2,000 mg in 50 mls @ 100 mls/hr IVPB Q8HR [facility] PRN Reason: Protocol Stop: 05/19/18 16:01 Last Admin: 11/18/17 08:29 Dose: 100 mls/hr Insulin Detemir (Levemir) 40 unit SQ BID [facility] Stop: 05/17/18 09:01 Last Admin: 11/18/17 08:57 Dose: 40 unit Insulin Human Lispro (Humalog) 0 units SQ HS [facility] PRN Reason: Protocol Stop: 05/16/18 21:01 Last Admin: 11/17/17 20:41 Dose: Not Given Insulin Human Lispro (Humalog) 0 units SQ TIDAC [facility] PRN Reason: Protocol Stop: 05/17/18 07:31 Last Admin: 11/18/17 08:28 Dose: Not Given Isosorbide Mononitrate (Imdur) 30 mg PO DAILY [facility] Stop: 05/19/18 14:31 Last Admin: 11/18/17 08:30 Dose: 30 mg Metoprolol Succinate (Toprol Xl) 25 mg PO DAILY [facility] Stop: 05/17/18 09:01 Last Admin: 11/18/17 08:30 Dose: 25 mg Multi-Ingredient Mucositis [place] (Chloraseptic) 1 spray MM QID PRN PRN Reason: Sore Throat Stop: 05/17/18 23:49 Last Admin: 11/16/17 01:00 Dose: 1 spray Multivitamins/Calcium (Thera M Plus) 1 tab PO DAILY [facility] Stop: 05/17/18 09:01 Last Admin: 11/18/17 08:31 Dose: 1 tab Naloxone HCl (Narcan) 0.4 mg IVP Q2MIN PRN PRN Reason: Opioid Reversal Stop: 05/16/18 22:15 Ondansetron HCl (Zofran) 4 mg IVP Q8HR PRN PRN Reason: Nausea And Vomiting Stop: 05/16/18 22:15 Promethazine HCl (Phenergan) 12.5 mg IVP Q6HR PRN PRN Reason: Nausea And Vomiting Stop: 05/16/18 22:15 Ticagrelor (Brilinta) 90 mg PO BID [facility] Stop: 05/17/18 09:01 Last Admin: 11/18/17 08:30 Dose: 90 mg - EKG Interpretation EKG results cardiology: other (Sr on tele) - VTE Reasons for not Prescribing Prophylaxis: Not indicated-Anticoagulated or INR therapeutic Consult Discharge Plan - Plan Referrals: Lala Beatty MD [Primary Care Provider] - 11/21/17 2:00 pm ()
[2017-11-18] MEDS: Nystatin SUSP 5 ML UD.LIQ PO SCH ×2 (17:17→20:38)
[2017-11-18] MEDS: Furosemide 240 MG in D5% in Water 96 ML IVC SCH (18:39)
[2017-11-19 05:20] LABS: Basophils # 0.1 K/mcL (0.0-0.2); Basophils % 0.5 %; Eosinophils # 0.2 K/mcL (0.0-0.6); Eosinophils % 1.8 %; Hematocrit 25.5 % (37.5-50.1); Immature Granulocytes % 2.5 % (0-4); Lymphocytes # 1.2 K/mcL (0.6-4.6); Lymphocytes % 9.3 %; Mean Corpuscular HGB Conc 31.4 g/dL (31.6-35.5); Mean Corpuscular Hemoglobin 29.7 pg (28.0-33.3); Mean Corpuscular Volume 94.8 fL (83.0-100.0); Mean Platelet Volume 10.4 fL (9.4-12.4); Monocytes # 1.3 K/mcL (0.0-1.3); Neutrophils # 9.7 K/mcL (1.6-8.9); Platelet Count 174 K/mcL (140-400); Red Blood Count 2.69 M/mcL (4.19-5.50); Segmented Neutrophils % 75.9 %
[2017-11-19 05:38] LABS: Albumin 3.3 g/dL (3.5-5.7); Bilirubin,Total 0.4 mg/dL (0.3-1.0); Calcium 8.7 mg/dL (8.6-10.3); Globulin 3.4 g/dL (2.4-3.5); Potassium 3.9 mEq/L (3.5-5.1); Total Protein 6.7 g/dL (6.4-8.9)
[2017-11-19] MEDS: Budesonide/Formoterol 160/4.5 MDI IH SCH ×2 (07:39→19:42)
[2017-11-19] MEDS: Insulin LISPRO 300 UNITS/3 ML VIAL SQ SCH ×4 (08:26→20:16)
[2017-11-19] MEDS: CeFAZolin Premix DUPLEX 2,000 MG/50 ML BAG IVPB SCH ×2 (08:34→20:21)
[2017-11-19] MEDS: Nystatin SUSP 5 ML UD.LIQ PO SCH ×4 (08:34→20:15)
[2017-11-19] MEDS: Aspirin 81 MG TAB.CHEW PO SCH (08:35)
[2017-11-19] MEDS: Famotidine 20 MG TABLET PO SCH (08:35)
[2017-11-19] MEDS: Gabapentin 300 MG CAPSULE PO SCH ×2 (08:35→20:14)
[2017-11-19] MEDS: Isosorbide MONOnitrate (24 HR) 30 MG TAB.ER.24H PO SCH (08:35)
[2017-11-19] MEDS: *HR* Heparin 5,000 UNIT/ML VIAL SQ SCH ×2 (08:35→20:15)
[2017-11-19] MEDS: Cyanocobalamin (B-12) 1,000 MCG TABLET PO SCH (08:35)
[2017-11-19] MEDS: hydrALAZINE 25 MG TABLET PO SCH ×2 (08:35→20:14)
[2017-11-19] MEDS: Metoprolol XL (24 HR) Succ 25 MG TAB.ER.24H PO SCH (08:36)
[2017-11-19] MEDS: *HR* Ticagrelor 90 MG TABLET PO SCH ×2 (08:36→20:14)
[2017-11-19] MEDS: Multivit/Ca/Min/Fe/FA 1 TAB TABLET PO SCH (08:36)
[2017-11-19] MEDS: Insulin DETEMIR 100 UNIT/ML X5UNITS SQ SCH ×2 (08:36→20:15)
--- NOTE | 2017-11-19 08:57 | Internal Med Progress Note ---
Date of Encounter: 11/19/17 Time of Encounter: 08:40 - Assessment and plan (1) Acute respiratory failure with hypoxia Current Visit: Yes Status: Acute Assessment and plan: Acute respiratory failure secondary to CHF exacerbation Currently on Lasix gtt and clinically improving. continue lasix gtt as per nephro saturating well on 3L [place] which is what is his home oxygen continue to monitor daily weights, strict I/Os fluid restriction diet will closely monitor respiratory status (2) Acute exacerbation of CHF (congestive heart failure) Current Visit: Yes Status: Acute Assessment and plan: as listed above Qualifiers: Congestive heart failure type: unspecified congestive heart failure type Qualified Code(s): I50.9 - Heart failure, unspecified (3) [id number]-[id number] kidney injury Current Visit: Yes Status: Acute Assessment and plan: Renal function worsened from previous day nephrology on board and consultation appreciated continue lasix gtt as per nephro Vancomycin discontinued on 11/17/17 however trough is 22.8 on 11/18/17 will continue to avoid nephro toxic agents and closely monitor renal function Qualifiers: Acute renal failure type: unspecified Chronic kidney disease stage: stage 4 (severe) Qualified Code(s): N17.9 - Acute kidney failure, unspecified; N18.4 - Chronic kidney disease, stage 4 (severe); N18.4 - Chronic kidney disease , stage 4 (severe); N18.4 - Chronic kidney disease, stage 4 (severe); N18.4 - Chronic kidney disease, stage 4 (severe) (4) Foot ulcer due to secondary DM Current Visit: No Status: Acute Assessment and plan: Podiatry on board, no surgical intervention recommended continue wound care wound cultures positive for Group G Streptococcus will continue Cefazolin for 10-14 days depending on clinical response (Day 6) (5) Anemia in CKD (chronic kidney disease) Current Visit: Yes Status: Acute Assessment and plan: H&H low but acceptable no acute bleeding reported continue to closely monitor Qualifiers: Chronic kidney disease stage: stage 4 (severe) Qualified Code(s): N18.4 - Chronic kidney disease, stage 4 (severe); D63.1 - Anemia in chronic kidney disease; D63.1 - Anemia in chronic kidney disease (6) Cellulitis Current Visit: Yes Status: Acute Assessment and plan: clinically improving as per the markings on LE continue Cefazolin at this time Qualifiers: Site of cellulitis: other site Qualified Code(s): L03.818 - Cellulitis of other sites (7) CAD (coronary artery disease) Current Visit: Yes Status: Chronic Assessment and plan: S/P [facility] on 11/17/17 which reported moderate to severe atherosclerotic CAD. S/p CABG 2 of 3 patent bypass grafts, Patent Lt. Main stent with patent ramus and CIRC. Optimization of medical therapy recommended. continue Imdur continue aspirin, brilinta, statin, BB chest pain free at this time Qualifiers: Coronary Disease-Associated Artery/Lesion type: [place] artery [place] vs. transplanted heart: [place] heart Associated angina: with unstable angina Qualified Code(s): I25.110 - Atherosclerotic heart disease of [place] coronary artery with unstable angina pectoris (8) Diabetes Current Visit: Yes Status: Chronic Assessment and plan: BG within acceptable range continue sliding scale insulin algorithm monitor FS and BG ADA diet Qualifiers: Diabetes mellitus type: type 2 Diabetes mellitus complication status: with circulatory complication Diabetes mellitus complication detail: with peripheral angiopathy without gangrene Diabetes mellitus prison insulin use : with tank terminal gauger use Qualified Code(s): E11.51 - Type 2 diabetes mellitus with diabetic peripheral angiopathy without gangrene; Z79.4 - tank terminal gauger (current ) use of insulin (9) NSTEMI (non-ST elevated myocardial infarction) Current Visit: Yes Status: Suspected Assessment and plan: S/P [facility] on 11/17/17 which reported moderate to severe atherosclerotic CAD. S/p CABG 2 of 3 patent bypass grafts, Patent Lt. Main stent with patent ramus and CIRC. Optimization of medical therapy recommended. (10) Sepsis Current Visit: Yes Status: Resolved Assessment and plan: secondary to LE cellulitis continue IV abx Qualifiers: Sepsis type: Streptococcus, other Qualified Code(s): A40.8 - Other streptococcal sepsis (11) Obesity (BMI 30-39.9) Current Visit: Yes Status: Chronic (12) DVT prophylaxis Current Visit: Yes Status: Acute Assessment and plan: Heparin SQ - Subjective Interval history: Patient seen and examined at bedside. Reports of improvement in his breathing compared to previous day. Noted to have 1.1L negative balance, diuresing well, currently on lasix gtt. Noted to be hypertensive this morning with SBP in 170s. Restarted home dose of Amlodipine 2.5mg PO qd S/P C on 11/17/17 which reported moderate to severe atherosclerotic CAD. S/p CABG 2 of 3 patent bypass grafts, Patent Lt. Main stent with patent ramus and CIRC. Optimization of medical therapy recommended. - Constitutional Vitals: Temp Pulse Resp BP Pulse Ox 98.2 F 67 20 147/70 99 11/19/17 04:00 11/19/17 07:00 11/19/17 07:00 11/19/17 07:00 11/19/17 07:00 General appearance: Present: cooperative, A&O X 3, morbidly obese, no acute distress - Head Head exam: Present: atraumatic, normocephalic - Eye Eye exam: Present: conjuntiva pink, sclera anicteric - Respiratory Respiratory exam: Present: decreased breath sounds, rales (bibasilar rales). Absent: respiratory distress, wheezes - Cardiovascular Cardiovascular exam: Present: RRR, +S1, +S2. Absent: diastolic murmur, gallop, rubs, systolic murmur - GI/Abdominal GI/Abdominal exam: Present: normal bowel sounds, soft, no peritoneal signs. Absent: distended, tenderness - Extremities Exam Extremities exam: Present: warm, radial pulses palpable and symmetrical. Absent : calf tenderness Additional comments: s/p right forefoot amputation, stump site dressing intact, RLE edema along with erythema concerning for cellulitis-improved from previous day, s/p left great toe amputation, mild LLE edema - Neurological Exam Neurological exam: Present: alert, oriented X3 - Psychiatric Psychiatric exam: Present: normal affect, normal mood Internal Medicine: Result - Labs CBC & Chem 7: 11/19/17 04:56 11/19/17 04:56 Labs: Short CBC 11/19/17 Range/Units 04:56 WBC 12.8 H (4.3-11.1) K/mcL Hgb 8.0 L (12.9-16.9) g/dL Hct 25.5 L (37.5-50.1) % Plt Count 174 (140-400) K/mcL Neutrophils # 9.7 H (1.6-8.9) K/mcL BMP 11/19/17 04:56 Sodium 137 Potassium 3.9 Chloride 102 Carbon Dioxide 25 BUN 58 H Creatinine 4.06 H Glucose 74 Calcium 8.7 Liver Function 11/19/17 Range/Units 04:56 Total Bilirubin 0.4 (0.3-1.0) mg/dL AST 21 (13-39) Units/L ALT 7 (7-52) Units/L Alkaline Phosphatase 128 H (34-104) Units/L Albumin 3.3 L (3.5-5.7) g/dL - ABG Interpretation ABG results: PT/INR, D-dimer PT 13.9 Seconds (9.4-12.1) H 11/14/17 20:56 - Impressions Impressions Lumbar Spine MRI 11/18/17 10:55 IMPRESSION: 1. Severe bilateral facet degenerative changes, with ligamentum flavum thickening and superimposed broad disc bulge at L3-L4. There is a severe spinal canal stenosis, severe bilateral lateral recess stenosis. There is apparent compression of nerve root, which may appears reasonably similar to previous examination. There is curved linear appearance of the nerve roots proximally within spinal canal, suggestive of compression at this level. 2. Unchanged appearance of the the L5-S1 intervertebral disc with a small amount of fluid within the disc space. No evidence of endplate destruction to suggest osteomyelitis discitis. 3. No evidence of epidural collection on this noncontrast examination. D/ / 11/18/2017 17:17:51 Aguilar Solo MD / racquel Interpreting Provider: Aguilar Solo MD Thoracic Spine MRI 11/18/17 10:55 IMPRESSION: 1. No evidence of discitis osteomyelitis. No evidence of epidural fluid collection to suggest epidural abscess. 2. Moderate diffuse thoracic spinal canal narrowing secondary to epidural lipomatosis. Right central disc protrusion at T6-7, which results in mild additional spinal canal narrowing. No definite evidence of abnormal spinal cord signal. Mild mass effect on the ventral spinal cord. 3. Nonspecific left pleural effusion. There is a oval-shaped collection/mass within right lung, which is not fully evaluated. This may represent fluid along the right fissure, however, recommend radiographic follow-up to resolution and further evaluation with dedicated chest imaging. 4. Degenerative changes of the cervical spine, with moderate stenosis at the C3-C4 vertebral level. This is only evaluated on the localization images. If there is a concern for cervical spine pathology, dedicated cervical spine MRI may be obtained. 5. Please see separate report for MRI of the lumbar spine. D/ / 11/18/2017 17:44:15 Aguilar Solo MD / lobo Interpreting Provider: Aguilar Solo MD - VTE Reasons for not Prescribing Prophylaxis: Not indicated-Anticoagulated or INR therapeutic Consult Discharge Plan - Plan Referrals: Lala Beatty MD [Primary Care Provider] - 11/21/17 2:00 pm ()
[2017-11-19] MEDS ORDERED: amLODIPine 5 MG TABLET PO SCH (09:00)
--- NOTE | 2017-11-19 09:31 | Nephrology Progress Note ---
Date of Encounter: 11/19/17 Time of Encounter: 09:05 - Assessment and Plan (1) Acute kidney injury Current Visit: No Status: Acute [place] superimposed on CKD, most likely contrast nephropathy s/p [facility]. Renal fct worse from yesterday. Creat 4.06. Documented urine output 1875 on Lasix drip which will be discontinueed today. Amlodipine stopped yesterday, SBP 145. Avoid nephrotoxins. Will continue to monitor. Subjective Principal diagnosis: Right foot cellulitis, Elevated trop Interval history: Sitting up in bed, ate breakfast. Denies chest pain. Wants to go home. Discused worsening creat from yesterday. Objective - Vital Signs Vital signs: Vital Signs Temp Pulse Resp BP Pulse Ox 11/19/17 09:00 73 18 101/81 98 11/19/17 08:00 73 20 168/74 98 11/19/17 07:00 67 20 147/70 99 11/19/17 05:53 71 16 152/71 97 11/19/17 05:00 69 16 162/74 97 11/19/17 04:00 98.2 F 67 18 138/48 97 11/19/17 03:35 70 11/19/17 02:56 70 18 163/73 96 11/19/17 02:00 71 18 150/82 96 11/19/17 01:00 73 16 157/59 96 11/19/17 00:52 98.4 F 11/19/17 00:06 74 11/19/17 00:00 71 16 163/66 96 11/18/17 23:00 73 16 171/77 96 11/18/17 22:00 73 14 146/55 96 11/18/17 21:02 74 11/18/17 21:00 79 14 164/90 96 11/18/17 20:44 98.2 F 11/18/17 20:00 75 24 161/65 94 11/18/17 19:00 72 22 128/74 97 11/18/17 18:31 78 22 157/61 97 11/18/17 17:30 79 16 152/58 97 11/18/17 16:00 78 11/18/17 15:45 72 18 141/68 95 11/18/17 15:42 98.4 F 11/18/17 15:00 74 18 154/67 97 11/18/17 14:00 71 12 134/61 97 11/18/17 13:00 74 11 139/57 99 11/18/17 12:13 70 14 135/62 99 11/18/17 11:41 98.2 F 11/18/17 11:02 71 12 133/72 98 11/18/17 10:00 72 18 133/60 98 Intake and Output 11/18/17 11/19/17 11/19/17 23:59 07:59 15:59 Intake Total 170 / 170 Output Total 425 / 425 200 / 200 450 / 450 Balance -255 / -255 -200 / -200 -450 / -450 Intake: IV Fluids 170 / 170 Lasix 240 MG In Dextrose 5% 96 120 / 120 ML @ 10 MG/HR 5 mls/hr IVC . Q24H [facility] Rx#:[id number] Ancef Premix DUPLEX 2,000 mg In 50 / 50 50 ml @ 100 mls/hr IVPB Q12H [facility] Rx#:[id number] Output: Catheter 425 / 425 200 / 200 450 / 450 Other: Weight 165.5 kg Blood Glucose* 157 Patient Weight 11/19/17 23:59 Weight 165.5 kg - General Appearance General appearance: Present: well-developed, well-nourished, appears started age , obese EENT: Present: mucous membranes moist Neck: Present: no JVD Respiratory: Present: clear Cardiology: Present: edema, regular rate, regular rhythm Additional Comments: edema right LE Gastrointestinal: Present: normoactive bowel sounds, no tenderness Integumentary: Present: warm and dry Neurologic: Present: alert and oriented x3 Psychiatric: Present: mood/affect appropriate, cooperative - Lab 11/19/17 04:56 11/19/17 04:56 Most recent lab results Calcium 8.7 mg/dL (8.6-10.3) 11/19/17 04:56 Phosphorus 5.0 mg/dL (2.7-4.5) H 11/19/17 04:56 Magnesium 2.0 mg/dL (1.6-2.6) 11/19/17 04:56 - VTE Reasons for not Prescribing Prophylaxis: Not indicated-Anticoagulated or INR therapeutic Consult Discharge Plan - Plan Referrals: Lala Beatty MD [Primary Care Provider] - 11/21/17 2:00 pm ()
[2017-11-19] MEDS: Sennosides/Docusate Sodium TABLET PO SCH ×2 (09:48→20:11)
--- NOTE | 2017-11-19 10:00 | Cardiology Progress Note ---
Date of Encounter: 11/19/17 Time of Encounter: 09:30 Assessment and Plan (1) NSTEMI (non-ST elevated myocardial infarction) Current Visit: Yes Status: Suspected Per Cardiology: -Peak trop 5.88-- NSTEMI in the setting of a wound infection, possible sepsis, and CKD. Known history of CAD, prior CABG, prior PCI. -Patient currently chest pain-free. On aspirin, Brilinta, statin, BB. -Echo & LHC showed: Impressions: Technically sub-optimal due to body habitus. LVEF 60%. Normal LV chamber size and function. Mild concentric left ventricular hypertrophy. Atypical septal motion consistent with post-operative status. Indeterminate diastolic function. Right ventricle grossly appears dilated with normal function. Unable to estimate RVSP due to lack of TR jet. No obvious significant valvular dysfunction. Left Ventricular Wall Motion: Rest Echo Findings All wall segments showed normal motion. S/p LHC: Lesion Findings/Interventions * Left Main Coronary Artery The LMCA has patent stents present from a previous procedure. The LMCA is angiographically free of disease. * Left Anterior Descending There is a 100% stenosis in the Proximal LAD. * Circumflex There is a 40% non-obstructive stenosis in the Proximal Circumflex. * Ramus There is a 40% non-obstructive stenosis in the Ramus. * Right Coronary Artery There is a 80% stenosis in the Proximal RCA, ostial. There is a 60% stenosis in the Mid RCA. Additional Findings: Grafts * The saphenous vein graft to the Right PDA is patent. ARDEN flow is 3. * The saphenous vein graft to the Ramus is occluded. * The left internal mammary graft to the Mid LAD is patent. ARDEN flow is 3. -Cardiology will sign off. Patient states he has an appointment with [facility] cardiology in the next couple of weeks. (2) CAD (coronary artery disease) Current Visit: Yes Status: Chronic Per Cardiology: -Hx of CABG with Dr. King. -Recommend patient follow up cardiology outpatient. Qualifiers: Coronary Disease-Associated Artery/Lesion type: [place] artery [place] vs. transplanted heart: [place] heart Associated angina: with unstable angina Qualified Code(s): I25.110 - Atherosclerotic heart disease of [place] coronary artery with unstable angina pectoris (3) Renal failure (ARF), acute on chronic Current Visit: No Status: Chronic Per Cardiology: -Hx of CKD IV. -Reported 50 lb weight gain. -Now off BiPap, breathing improved. -On Lasix gtt. -Creatinine 4.06 today. -Nephrology following. Management per primary and nephrology services. Qualifiers: Acute renal failure type: unspecified Chronic kidney disease stage: stage 4 (severe) Qualified Code(s): N17.9 - Acute kidney failure, unspecified; N18.4 - Chronic kidney disease, stage 4 (severe); N18.4 - Chronic kidney disease , stage 4 (severe); N18.4 - Chronic kidney disease, stage 4 (severe); N18.4 - Chronic kidney disease, stage 4 (severe) Discussion w patient/family: The assessment and plan as outlined above was discussed with the patient who expressed understanding and agreement. All questions were answered. Thank you for involving us in the care of your patient. Please call with any questions. Discussed and reviewed with . Subjective Principal diagnosis: Right foot cellulitis, Elevated trop Interval history: Patient denies chest pain, states shortness of breath is much improved. States edema in right leg is much better than admission. Objective Vital Signs, Last 4 Hours Temp Pulse Resp BP Pulse Ox 11/19/17 09:00 73 18 101/81 98 11/19/17 08:00 73 20 168/74 98 11/19/17 07:30 97.7 F 11/19/17 07:00 67 20 147/70 99 General: Conversant, No Apparent Distress HEENT: Atraumatic, Normocephaly, Mucus Membranes Moist Neck: No JVD, Normal carotid pulses Cardiac: Reg Rate and Rhythm, Normal S1 and S2, No Murmur Lungs: Normal Breath Sounds, No Wheeze, Rales, Rhonchi Neuro: Alert and responsive, No focal deficits noted Abdomen: Soft, Non-Tender Skin: No rashes noted on visualized skin Musculoskeletal: No Chest Wall Tenderness Extremities: No Clubbing, No Cyanosis, Normal Pulses, Other (2+ right lower extremity pitting edema. Mild, non-pitting edema noted to left lower extremity. ) Results 11/19/17 04:56 11/19/17 04:56 Lab Results Impressions Lumbar Spine MRI 11/18/17 10:55 IMPRESSION: 1. Severe bilateral facet degenerative changes, with ligamentum flavum thickening and superimposed broad disc bulge at L3-L4. There is a severe spinal canal stenosis, severe bilateral lateral recess stenosis. There is apparent compression of nerve root, which may appears reasonably similar to previous examination. There is curved linear appearance of the nerve roots proximally within spinal canal, suggestive of compression at this level. 2. Unchanged appearance of the the L5-S1 intervertebral disc with a small amount of fluid within the disc space. No evidence of endplate destruction to suggest osteomyelitis discitis. 3. No evidence of epidural collection on this noncontrast examination. D/ / 11/18/2017 17:17:51 Aguilar Solo MD / [email or web address] Interpreting Provider: Aguilar Solo MD Thoracic Spine MRI 11/18/17 10:55 IMPRESSION: 1. No evidence of discitis osteomyelitis. No evidence of epidural fluid collection to suggest epidural abscess. 2. Moderate diffuse thoracic spinal canal narrowing secondary to epidural lipomatosis. Right central disc protrusion at T6-7, which results in mild additional spinal canal narrowing. No definite evidence of abnormal spinal cord signal. Mild mass effect on the ventral spinal cord. 3. Nonspecific left pleural effusion. There is a oval-shaped collection/mass within right lung, which is not fully evaluated. This may represent fluid along the right fissure, however, recommend radiographic follow-up to resolution and further evaluation with dedicated chest imaging. 4. Degenerative changes of the cervical spine, with moderate stenosis at the C3-C4 vertebral level. This is only evaluated on the localization images. If there is a concern for cervical spine pathology, dedicated cervical spine MRI may be obtained. 5. Please see separate report for MRI of the lumbar spine. D/ / 11/18/2017 17:44:15 Aguilar Solo MD / lobo Interpreting Provider: Aguilar Solo MD Active Medications Hydrocodone Bitart/Acetaminophen ([place] 5-325 Mg) 2 tab PO BID PRN PRN Reason: Pain Stop: 05/16/18 22:10 Last Admin: 11/18/17 17:16 Dose: 2 tab Albuterol Sulfate (Albuterol Inhaler) 2 puff IH Q4HR PRN PRN Reason: Shortness Of Breath Stop: 05/16/18 22:10 Last Admin: 11/17/17 10:18 Dose: 2 puff Allopurinol (Zyloprim) 100 mg PO DAILY [facility] Stop: 05/17/18 09:01 Last Admin: 11/19/17 08:35 Dose: 100 mg Amlodipine Besylate (Norvasc) 2.5 mg PO DAILY [facility] PRN Reason: Protocol Stop: 05/21/18 09:01 Last Admin: 11/19/17 09:48 Dose: 2.5 mg Aspirin (Aspirin) 81 mg PO DAILY [facility] Stop: 05/17/18 09:01 Last Admin: 11/19/17 08:35 Dose: 81 mg Atorvastatin Calcium (Lipitor) 80 mg PO HS [facility] Stop: 05/17/18 21:01 Last Admin: 11/18/17 20:39 Dose: 80 mg Budesonide/Formoterol Fumarate (Symbicort) 2 puff IH BIDR [facility] PRN Reason: Protocol Stop: 05/17/18 10:01 Last Admin: 11/19/17 07:39 Dose: Not Given Citalopram Hydrobromide (Celexa) 10 mg PO HS [facility] Stop: 05/17/18 21:01 Last Admin: 11/18/17 20:38 Dose: 10 mg Cyanocobalamin (Vitamin B12) 2,500 mcg PO DAILY [facility] Stop: 05/17/18 09:01 Last Admin: 11/19/17 08:35 Dose: 2,500 mcg Dextrose/Water (Dextrose 50% (Syg)) 25 ml IVP AD PRN PRN Reason: Hypoglycemia Stop: 05/16/18 22:15 Famotidine (Pepcid) 20 mg PO DAILY [facility] Stop: 05/20/18 09:01 Last Admin: 11/19/17 08:35 Dose: 20 mg Gabapentin (Neurontin) 300 mg PO BID [facility] Stop: 05/17/18 09:01 Last Admin: 11/19/17 08:35 Dose: 300 mg Glucagon (Glucagen) 1 mg IM ONCE PRN PRN Reason: Hypoglycemia Stop: 05/16/18 22:15 Glucose (Gluctose) 15 gm PO ONCE PRN PRN Reason: Hypoglycemia Stop: 05/16/18 22:15 Glucose (Gluctose) 30 gm PO ONCE PRN PRN Reason: Hypoglycemia Stop: 05/16/18 22:15 Heparin Sodium (Porcine) (Heparin) 5,000 unit SQ Q12H [facility] Stop: 05/20/18 09:01 Last Admin: 11/19/17 08:35 Dose: 5,000 unit Hydralazine HCl (Hydralazine) 25 mg PO BID [facility] Stop: 05/17/18 09:01 Last Admin: 11/19/17 08:35 Dose: 25 mg Dextrose (Dextrose 5%) 1,000 mls @ 100 mls/hr IVC .Q10H PRN PRN Reason: HYPOGLYCEMIA Stop: 05/16/18 22:15 Cefazolin Sodium (Ancef Premix Duplex) 2,000 mg in 50 mls @ 100 mls/hr IVPB Q12H [facility] PRN Reason: Protocol Stop: 05/20/18 00:01 Last Admin: 11/19/17 08:34 Dose: 100 mls/hr Insulin Detemir (Levemir) 40 unit SQ BID [facility] Stop: 05/17/18 09:01 Last Admin: 11/19/17 08:36 Dose: 40 unit Insulin Human Lispro (Humalog) 0 units SQ HS [facility] PRN Reason: Protocol Stop: 05/16/18 21:01 Last Admin: 11/18/17 20:39 Dose: Not Given Insulin Human Lispro (Humalog) 0 units SQ TIDAC [facility] PRN Reason: Protocol Stop: 05/17/18 07:31 Last Admin: 11/19/17 08:26 Dose: Not Given Isosorbide Mononitrate (Imdur) 30 mg PO DAILY [facility] Stop: 05/19/18 14:31 Last Admin: 11/19/17 08:35 Dose: 30 mg Metoprolol Succinate (Toprol Xl) 25 mg PO DAILY [facility] Stop: 05/17/18 09:01 Last Admin: 11/19/17 08:36 Dose: 25 mg Multi-Ingredient Mucositis [place] (Chloraseptic) 1 spray MM QID PRN PRN Reason: Sore Throat Stop: 05/17/18 23:49 Last Admin: 11/16/17 01:00 Dose: 1 spray Multivitamins/Calcium (Thera M Plus) 1 tab PO DAILY [facility] Stop: 05/17/18 09:01 Last Admin: 11/19/17 08:36 Dose: 1 tab Naloxone HCl (Narcan) 0.4 mg IVP Q2MIN PRN PRN Reason: Opioid Reversal Stop: 05/16/18 22:15 Nystatin (Mycostatin Suspension) 5 ml PO QID [facility] Stop: 05/20/18 17:01 Last Admin: 11/19/17 08:34 Dose: 5 ml Ondansetron HCl (Zofran) 4 mg IVP Q8HR PRN PRN Reason: Nausea And Vomiting Stop: 05/16/18 22:15 Polyethylene Glycol (Miralax) 17 gm PO DAILY PRN PRN Reason: Constipation Stop: 05/21/18 09:22 Promethazine HCl (Phenergan) 12.5 mg IVP Q6HR PRN PRN Reason: Nausea And Vomiting Stop: 05/16/18 22:15 Senna/Docusate Sodium (Senna Plus) 2 each PO BID [facility] PRN Reason: Protocol Stop: 05/21/18 09:31 Last Admin: 11/19/17 09:48 Dose: 2 each Ticagrelor (Brilinta) 90 mg PO BID [facility] Stop: 05/17/18 09:01 Last Admin: 11/19/17 08:36 Dose: 90 mg Laboratory Tests 11/17/17 11/18/17 11/19/17 04:13 01:00 04:56 WBC 12.8 H Hgb 8.0 L Creatinine 2.94 H 3.46 H 11/19/17 04:56 WBC Hgb Creatinine 4.06 H - Imaging and Cardiology Chest Xray: report reviewed Echo: report reviewed Cardiac cath: report reviewed - EKG Interpretation EKG results cardiology: other (Telemetry reviewed with average HR previous 12 hours noted to be 72, sinus rhythm. PVCs and PACs.) - VTE Reasons for not Prescribing Prophylaxis: Not indicated-Anticoagulated or INR therapeutic Consult Discharge Plan - Plan Referrals: Lala Beatty MD [Primary Care Provider] - 11/21/17 2:00 pm ()
--- NOTE | 2017-11-19 13:19 | Podiatry Progress Note ---
Date of Encounter: 11/19/17 Time of Encounter: 09:00 - Assessment and Plan (1) Cellulitis Current Visit: Yes Status: Acute The MRI was received demonstrates no deep abscess or osteomyelitis.- foot is benign in appearance and cellulitis of RLE is improving Currently due to the negative MRI we will continue antibiotics and not perform any surgical intervention at this time. We will continue to monitor the foot for any increasing signs of infection and consider surgical intervention at that time. Normal dressing changes- application of allevyn Q72 hours and offoading to protect heel and monitoring with IV antibiotics should be sufficient at this point. Call with any new concerns There is a slight bump in WBC today however I have limited clinical suspicion it is from the foot Qualifiers: Site of cellulitis: other site Qualified Code(s): L03.818 - Cellulitis of other sites Subjective Principal diagnosis: Right foot cellulitis, Elevated trop Interval history: We have been following regarding cellulitis and a fissue of the right foot. MRI was negative w/o signs of abscess so antibiotic treatment was recommended. Patient resting comfortably on arrival. States he feels well. Denies any issues at this time.Patient is afebrile. Patient denies any pain to remaining stup of right foot however he is neuropathic. Objective - Vital Signs Vital Signs: Vital Signs Temp Pulse Resp BP Pulse Ox 11/19/17 12:00 68 20 141/83 99 11/19/17 11:00 69 20 165/69 97 11/19/17 10:00 68 20 143/41 100 11/19/17 09:00 73 18 101/81 98 11/19/17 08:00 73 20 168/74 98 11/19/17 07:30 97.7 F 11/19/17 07:00 67 20 147/70 99 11/19/17 05:53 71 16 152/71 97 11/19/17 05:00 69 16 162/74 97 11/19/17 04:00 98.2 F 67 18 138/48 97 11/19/17 03:35 70 11/19/17 02:56 70 18 163/73 96 11/19/17 02:00 71 18 150/82 96 11/19/17 01:00 73 16 157/59 96 11/19/17 00:52 98.4 F 11/19/17 00:06 74 11/19/17 00:00 71 16 163/66 96 11/18/17 23:00 73 16 171/77 96 11/18/17 22:00 73 14 146/55 96 11/18/17 21:02 74 11/18/17 21:00 79 14 164/90 96 11/18/17 20:44 98.2 F 11/18/17 20:00 75 24 161/65 94 11/18/17 19:00 72 22 128/74 97 11/18/17 18:31 78 22 157/61 97 11/18/17 17:30 79 16 152/58 97 11/18/17 16:00 78 11/18/17 15:45 72 18 141/68 95 11/18/17 15:42 98.4 F 11/18/17 15:00 74 18 154/67 97 11/18/17 14:00 71 12 134/61 97 Intake and Output 11/18/17 11/19/17 11/19/17 23:59 07:59 15:59 Intake Total 170 / 170 50 / 50 Output Total 425 / 425 650 / 650 450 / 450 Balance -255 / -255 -650 / -650 -400 / -400 Intake: IV Fluids 170 / 170 50 / 50 Lasix 240 MG In Dextrose 5% 96 120 / 120 ML @ 10 MG/HR 5 mls/hr IVC . Q24H [facility] Rx#:[id number] Ancef Premix DUPLEX 2,000 mg In 50 / 50 50 / 50 50 ml @ 100 mls/hr IVPB Q12H [facility] Rx#:[id number] Output: Catheter 425 / 425 650 / 650 450 / 450 Other: Weight 165.5 kg Blood Glucose* 157 81 Patient Weight 11/19/17 23:59 Weight 165.5 kg - Exam Exam: General Examination: CONSTITUTIONAL: Alert, oriented, in no acute distress, non-toxic. EXTREMITIES: CFT 3 seconds all toes. Edema +1 and pedal pulses per signal DP/PT SKIN: Skin with decreased turgor, decreased subcutaneous tissue, skin thin and shiny with trophic changes associated with comorbidities as described in history.. NEUROLOGIC: Grossly intact epicritic and vibratory sensation from toes to tibia, evidenced with use of monofilament 5.07 and tuning fork at 128 CPS. Patient complains of paresthesias and dysesthesias. There is no clinical evidence of loss of protective sensation. Right foot/stump There is a continued noted small crack/fissure of the right lateral heel area- this has improved in appearance- there is no edema, erythema or drainage. No warmth or tenderness. Cellulitis of RLE was marked on admission and has regressed tremendously in appearance Edema of RLE has decreased Left foot without any evidence of ulceration/cellulitis or concern. - Lab Result Diagrams: 11/19/17 04:56 11/19/17 04:56 Labs: Abnormal lab results WBC 12.8 K/mcL (4.3-11.1) H 11/19/17 04:56 RBC 2.69 M/mcL (4.19-5.50) L 11/19/17 04:56 Hgb 8.0 g/dL (12.9-16.9) L 11/19/17 04:56 Hct 25.5 % (37.5-50.1) L 11/19/17 04:56 MCHC 31.4 g/dL (31.6-35.5) L 11/19/17 04:56 RDW 15.0 % (11.5-14.5) H 11/19/17 04:56 Band Neutrophils % 12.7 % (0-4) H 11/15/17 03:20 Metamyelocytes % 2.0 % (0) H 11/14/17 19:18 Myelocytes % 2.0 % (0) H 11/14/17 19:18 Neutrophils # 9.7 K/mcL (1.6-8.9) H 11/19/17 04:56 Polychromasia 1+ (Not Present) A 11/15/17 03:20 ESR 124 mm/hr (0-10) H 11/14/17 19:18 PT 13.9 Seconds (9.4-12.1) H 11/14/17 20:56 APTT 70.2 Seconds (26.0-36.0) H 11/17/17 12:08 BUN 58 mg/dL (8-23) H 11/19/17 04:56 Creatinine 4.06 mg/dL (0.70-1.30) H 11/19/17 04:56 Est GFR ( Amer) 18 (> 60) L 11/19/17 04:56 Est GFR (Non-Af Amer) 15 (> 60) L 11/19/17 04:56 POC Glucose 137 (58-89) H 11/19/17 11:51 Phosphorus 5.0 mg/dL (2.7-4.5) H 11/19/17 04:56 Alkaline Phosphatase 128 Units/L (34-104) H 11/19/17 04:56 Troponin I 5.88 ng/mL (0-0.03) H* 11/15/17 09:57 C-Reactive Protein 114 mg/L (Less than 5) H 11/14/17 19:18 Albumin 3.3 g/dL (3.5-5.7) L 11/19/17 04:56 Albumin/Globulin Ratio 1.0 (1.1-2.2) L 11/19/17 04:56 HDL Cholesterol 26 mg/dL (40-59) L 11/15/17 03:20 Urine Protein >=300 mg/dL (Neg-Trace) H 11/14/17 19:35 Urine Microscopic RBC 5-15 per hpf (0-3) H 11/14/17 19:35 Ur Squamous Epith Cells Many per lpf (None-Few) H 11/14/17 19:35 - VTE Reasons for not Prescribing Prophylaxis: Not indicated-Anticoagulated or INR therapeutic Consult Discharge Plan - Plan Referrals: Lala Beatty MD [Primary Care Provider] - 11/21/17 2:00 pm ()
[2017-11-19] MEDS: *HR* HYDROcodone/Acet 5/325 mg TABLET PO PRN (20:13)
[2017-11-20 04:40] LABS: Basophils # 0.1 K/mcL (0.0-0.2); Basophils % 0.5 %; Eosinophils # 0.4 K/mcL (0.0-0.6); Eosinophils % 3.5 %; Hematocrit 24.7 % (37.5-50.1); Hemoglobin 7.7 g/dL (12.9-16.9); Immature Granulocytes % 2.9 % (0-4); Lymphocytes # 1.3 K/mcL (0.6-4.6); Lymphocytes % 10.8 %; Mean Corpuscular HGB Conc 31.2 g/dL (31.6-35.5); Mean Corpuscular Hemoglobin 29.2 pg (28.0-33.3); Mean Corpuscular Volume 93.6 fL (83.0-100.0); Mean Platelet Volume 9.9 fL (9.4-12.4); Neutrophils # 8.5 K/mcL (1.6-8.9); Platelet Count 175 K/mcL (140-400); Red Blood Count 2.64 M/mcL (4.19-5.50); Red Cell Distribution Width 14.8 % (11.5-14.5); Segmented Neutrophils % 73.3 %
[2017-11-20] MEDS: Insulin LISPRO 300 UNITS/3 ML VIAL SQ SCH ×4 (08:10→20:25)
[2017-11-20] MEDS: Budesonide/Formoterol 160/4.5 MDI IH SCH ×2 (08:21→20:36)
[2017-11-20] MEDS: Insulin DETEMIR 100 UNIT/ML X5UNITS SQ SCH ×2 (08:43→20:22)
[2017-11-20] MEDS: *HR* Heparin 5,000 UNIT/ML VIAL SQ SCH ×2 (08:55→20:21)
[2017-11-20] MEDS: Famotidine 20 MG TABLET PO SCH (08:56)
[2017-11-20] MEDS: *HR* Ticagrelor 90 MG TABLET PO SCH ×2 (08:56→20:21)
[2017-11-20] MEDS: Nystatin SUSP 5 ML UD.LIQ PO SCH ×4 (08:56→20:21)
[2017-11-20] MEDS: Multivit/Ca/Min/Fe/FA 1 TAB TABLET PO SCH (08:56)
[2017-11-20] MEDS: Cyanocobalamin (B-12) 1,000 MCG TABLET PO SCH (08:56)
[2017-11-20] MEDS: Isosorbide MONOnitrate (24 HR) 30 MG TAB.ER.24H PO SCH (08:56)
[2017-11-20] MEDS: Aspirin 81 MG TAB.CHEW PO SCH (08:57)
[2017-11-20] MEDS: Gabapentin 300 MG CAPSULE PO SCH ×2 (08:57→20:21)
[2017-11-20] MEDS: hydrALAZINE 25 MG TABLET PO SCH ×2 (08:57→20:21)
[2017-11-20] MEDS: Sennosides/Docusate Sodium TABLET PO SCH ×2 (08:57→20:20)
[2017-11-20] MEDS: Metoprolol XL (24 HR) Succ 25 MG TAB.ER.24H PO SCH (08:57)
[2017-11-20] MEDS: amLODIPine 5 MG TABLET PO SCH (09:00)
[2017-11-20] MEDS ORDERED: ceFAZolin 1,000 MG in Water for inj. (sterile) 20 ML 10 ML IVP SCH ×2 (09:00→10:00)
[2017-11-20 09:10] LABS: Calcium 8.6 mg/dL (8.6-10.3); Magnesium 2.1 mg/dL (1.6-2.6); Phosphorous 4.6 mg/dL (2.7-4.5); Potassium 3.7 mEq/L (3.5-5.1)
--- NOTE | 2017-11-20 10:09 | Internal Med Progress Note ---
Date of Encounter: 11/20/17 Time of Encounter: 09:50 - Assessment and plan (1) Acute respiratory failure with hypoxia Current Visit: Yes Status: Acute Assessment and plan: Acute respiratory failure secondary to CHF exacerbation off lasix gtt, clinically improving saturating well on 3L NC start Lasix 40mg PO qd continue to monitor daily weights, strict I/Os fluid restriction diet will closely monitor respiratory status (2) Acute exacerbation of CHF (congestive heart failure) Current Visit: Yes Status: Acute Assessment and plan: as listed above Qualifiers: Congestive heart failure type: unspecified congestive heart failure type Qualified Code(s): I50.9 - Heart failure, unspecified (3) [id number] kidney injury Current Visit: Yes Status: Acute Assessment and plan: Renal function worsened from previous day Secondary to Contrast induced nephropathy nephrology on board and consultation appreciated started Lasix 40mg PO qd will continue to avoid nephro toxic agents and closely monitor renal function Qualifiers: Acute renal failure type: unspecified Chronic kidney disease stage: stage 4 (severe) Qualified Code(s): N17.9 - Acute kidney failure, unspecified; N18.4 - Chronic kidney disease, stage 4 (severe); N18.4 - Chronic kidney disease , stage 4 (severe); N18.4 - Chronic kidney disease, stage 4 (severe); N18.4 - Chronic kidney disease, stage 4 (severe) (4) Foot ulcer due to secondary DM Current Visit: No Status: Acute Assessment and plan: Podiatry on board, no surgical intervention recommended continue wound care wound cultures positive for Group G Streptococcus will continue Cefazolin for 10-14 days depending on clinical response (Day 7) (5) Anemia in CKD (chronic kidney disease) Current Visit: Yes Status: Acute Assessment and plan: H&H low but acceptable no acute bleeding reported continue to closely monitor Qualifiers: Chronic kidney disease stage: stage 4 (severe) Qualified Code(s): N18.4 - Chronic kidney disease, stage 4 (severe); D63.1 - Anemia in chronic kidney disease; D63.1 - Anemia in chronic kidney disease (6) Cellulitis Current Visit: Yes Status: Acute Assessment and plan: clinically improving as per the markings on LE continue Cefazolin at this time Qualifiers: Site of cellulitis: other site Qualified Code(s): L03.818 - Cellulitis of other sites (7) CAD (coronary artery disease) Current Visit: Yes Status: Chronic Assessment and plan: S/P [facility] on 11/17/17 which reported moderate to severe atherosclerotic CAD. S/p CABG 2 of 3 patent bypass grafts, Patent Lt. Main stent with patent ramus and CIRC. Optimization of medical therapy recommended. continue Imdur continue aspirin, brilinta, statin, BB chest pain free at this time Qualifiers: Coronary Disease-Associated Artery/Lesion type: [place] artery [place] vs. transplanted heart: [place] heart Associated angina: with unstable angina Qualified Code(s): I25.110 - Atherosclerotic heart disease of [place] coronary artery with unstable angina pectoris (8) Diabetes Current Visit: Yes Status: Chronic Assessment and plan: BG within acceptable range continue sliding scale insulin algorithm monitor FS and BG ADA diet Qualifiers: Diabetes mellitus type: type 2 Diabetes mellitus complication status: with circulatory complication Diabetes mellitus complication detail: with peripheral angiopathy without gangrene Diabetes mellitus intermediate frame tender insulin use : with residential use Qualified Code(s): E11.51 - Type 2 diabetes mellitus with diabetic peripheral angiopathy without gangrene; Z79.4 - shelter (current ) use of insulin (9) NSTEMI (non-ST elevated myocardial infarction) Current Visit: Yes Status: Suspected Assessment and plan: S/P [facility] on 11/17/17 which reported moderate to severe atherosclerotic CAD. S/p CABG 2 of 3 patent bypass grafts, Patent Lt. Main stent with patent ramus and CIRC. Optimization of medical therapy recommended. (10) Sepsis Current Visit: Yes Status: Resolved Assessment and plan: secondary to LE cellulitis continue IV abx Qualifiers: Sepsis type: Streptococcus, other Qualified Code(s): A40.8 - Other streptococcal sepsis (11) Obesity (BMI 30-39.9) Current Visit: Yes Status: Chronic (12) DVT prophylaxis Current Visit: Yes Status: Acute Assessment and plan: Heparin SQ - Subjective Interval history: Patient seen and examined at bedside. Sitting in bed and reports of feeling better. Off lasix gtt since yesterday. Currently saturating well on 3L NC which is his home oxygen however noted to have mild bibasilar rales. Noted to be hypertensive, increased Amlodipine dose. Will increase Hydralazine dose if remains hypertensive. I spoke with the access specialist in regards to the renal dysfunction and the need to continue diuretic support. Pt's current renal dysfunction is secondary to contrast induced nephropathy, he continues to have good urine output. Will start him on Lasix 40mg PO qd and closely monitor S/P [facility] on 11/17/17 which reported moderate to severe atherosclerotic CAD. S/p CABG 2 of 3 patent bypass grafts, Patent Lt. Main stent with patent ramus and CIRC. Optimization of medical therapy recommended. - Constitutional Vitals: Temp Pulse Resp BP Pulse Ox 97.7 F 71 18 176/82 99 11/20/17 07:30 11/20/17 09:00 11/20/17 09:00 11/20/17 09:00 11/20/17 09:00 General appearance: Present: cooperative, A&O X 3, morbidly obese, no acute distress - Head Head exam: Present: atraumatic, normocephalic - Eye Eye exam: Present: conjuntiva pink, sclera anicteric - Respiratory Respiratory exam: Absent: respiratory distress, wheezes (bibasilar rales) - Cardiovascular Cardiovascular exam: Present: RRR, +S1, +S2. Absent: diastolic murmur, gallop, rubs, systolic murmur - GI/Abdominal GI/Abdominal exam: Present: normal bowel sounds, soft, no peritoneal signs. Absent: distended, tenderness - Extremities Exam Extremities exam: Present: warm, radial pulses palpable and symmetrical. Absent : calf tenderness Additional comments: s/p right forefoot amputation, stump site dressing intact, RLE edema along with erythema concerning for cellulitis-improved from previous day, s/p left great toe amputation - Neurological Exam Neurological exam: Present: alert, oriented X3 - Psychiatric Psychiatric exam: Present: normal affect, normal mood Internal Medicine: Result - Labs CBC & Chem 7: 11/20/17 04:24 11/20/17 04:24 Labs: Short CBC 11/20/17 Range/Units 04:24 WBC 11.6 H (4.3-11.1) K/mcL Hgb 7.7 L (12.9-16.9) g/dL Hct 24.7 L (37.5-50.1) % Plt Count 175 (140-400) K/mcL Neutrophils # 8.5 (1.6-8.9) K/mcL BMP 11/20/17 04:24 Sodium 138 Potassium 3.7 Chloride 103 Carbon Dioxide 22 L BUN 62 H Creatinine 4.44 H Glucose 54 L Calcium 8.6 - ABG Interpretation ABG results: PT/INR, D-dimer PT 13.9 Seconds (9.4-12.1) H 11/14/17 20:56 - VTE Reasons for not Prescribing Prophylaxis: Not indicated-Anticoagulated or INR therapeutic Documentation of Mechanical Device: Intermittent pneumatic compression device Consult Discharge Plan - Plan Referrals: Lala Beatty MD [Primary Care Provider] - 11/21/17 2:00 pm ()
--- NOTE | 2017-11-20 10:24 | Nephrology Progress Note ---
Date of Encounter: 11/20/17 Time of Encounter: 10:00 - Assessment and Plan (1) Acute kidney injury Current Visit: No Status: Acute CRISTHIAN superimposed on CKD, most likely contrast nephropathy s/p [facility]. Renal fct worse from yesterday. Creat 4.44. Hopefully will plateau/trending down tomorrow. Documented urine output 1900cc. SBP 170-190, restarted on Amlodipine. Avoid nephrotoxins. Will continue to monitor. Subjective Principal diagnosis: Right foot cellulitis, Elevated trop Interval history: Sitting on edge of bed, eating breakfast. Denies chest pain. Wants to go home. Discused worsening creat from yesterday. Objective - Vital Signs Vital signs: Vital Signs Temp Pulse Resp BP Pulse Ox 11/20/17 10:00 68 20 124/87 100 11/20/17 09:00 71 18 176/82 99 11/20/17 08:00 68 20 173/93 100 11/20/17 07:30 97.7 F 11/20/17 07:20 72 11/20/17 07:00 66 20 168/84 98 11/20/17 06:00 69 22 162/59 97 11/20/17 05:00 71 20 186/66 98 11/20/17 04:54 97.7 F 11/20/17 04:00 69 20 157/72 98 11/20/17 03:00 68 11/20/17 02:00 69 20 149/69 98 11/20/17 01:00 68 18 145/60 98 11/19/17 23:00 98.0 F 74 18 137/51 98 11/19/17 22:00 72 17 156/72 98 11/19/17 21:00 75 17 172/80 98 11/19/17 20:46 98.0 F 11/19/17 20:00 73 16 187/84 98 11/19/17 19:00 79 20 138/44 98 11/19/17 18:00 69 20 152/64 98 11/19/17 17:00 68 20 159/64 99 11/19/17 16:30 98.3 F 11/19/17 16:00 67 18 140/60 99 11/19/17 15:00 68 16 136/51 98 11/19/17 14:00 71 20 145/58 98 11/19/17 13:00 69 22 160/70 100 11/19/17 12:00 68 20 141/83 99 11/19/17 11:00 69 20 165/69 97 Intake and Output 11/19/17 11/20/17 11/20/17 23:59 07:59 15:59 Intake Total 50 / 50 Output Total 800 / 800 1350 / 1350 Balance -750 / -750 -1350 / -1350 Intake: IV Fluids 50 / 50 Ancef Premix DUPLEX 2,000 mg In 50 / 50 50 ml @ 100 mls/hr IVPB Q12H [facility] Rx#:[id number] Output: Catheter 800 / 800 1350 / 1350 Other: Meal Breakfast Percent of Meal Consumed 90% Weight 136.5 kg Blood Glucose* 148 64 - General Appearance General appearance: Present: well-developed, well-nourished, appears started age , obese EENT: Present: mucous membranes moist Neck: Present: no JVD Respiratory: Present: clear Cardiology: Present: edema, regular rate, regular rhythm Additional Comments: R>L Gastrointestinal: Present: normoactive bowel sounds, no tenderness Integumentary: Present: warm and dry Neurologic: Present: alert and oriented x3 Psychiatric: Present: mood/affect appropriate, cooperative - Lab 11/20/17 04:24 11/20/17 04:24 Most recent lab results Calcium 8.6 mg/dL (8.6-10.3) 11/20/17 04:24 Phosphorus 4.6 mg/dL (2.7-4.5) H 11/20/17 04:24 Magnesium 2.1 mg/dL (1.6-2.6) 11/20/17 04:24 - VTE Reasons for not Prescribing Prophylaxis: Not indicated-Anticoagulated or INR therapeutic Documentation of Mechanical Device: Intermittent pneumatic compression device Consult Discharge Plan - Plan Referrals: Lala Beatty MD [Primary Care Provider] - 11/21/17 2:00 pm ()
[2017-11-20] MEDS: Furosemide 40 MG TABLET PO SCH (10:51)
[2017-11-20] MEDS: *HR* HYDROcodone/Acet 5/325 mg TABLET PO PRN (13:34)
[2017-11-20] MEDS: ceFAZolin 1,000 MG in Water for inj. (sterile) 20 ML 10 ML IVP SCH (22:39)
[2017-11-21 03:59] LABS: Basophils # 0.1 K/mcL (0.0-0.2); Basophils % 0.6 %; Eosinophils # 0.5 K/mcL (0.0-0.6); Eosinophils % 4.5 %; Hematocrit 26.3 % (37.5-50.1); Hemoglobin 8.2 g/dL (12.9-16.9); Immature Granulocytes % 4.8 % (0-4); Immature Platelets 2.8 % (1.1-6.1); Lymphocytes # 1.5 K/mcL (0.6-4.6); Lymphocytes % 14.5 %; Mean Corpuscular HGB Conc 31.2 g/dL (31.6-35.5); Mean Corpuscular Hemoglobin 29.2 pg (28.0-33.3); Mean Corpuscular Volume 93.6 fL (83.0-100.0); Mean Platelet Volume 9.7 fL (9.4-12.4); Monocytes # 0.9 K/mcL (0.0-1.3); Platelet Count 236 K/mcL (140-400); Red Blood Count 2.81 M/mcL (4.19-5.50); Red Cell Distribution Width 14.9 % (11.5-14.5); Segmented Neutrophils % 66.6 %
[2017-11-21 04:16] LABS: Calcium 8.6 mg/dL (8.6-10.3); Magnesium 2.2 mg/dL (1.6-2.6); Phosphorous 4.9 mg/dL (2.7-4.5); Potassium 3.9 mEq/L (3.5-5.1)
--- NOTE | 2017-11-21 09:08 | Nephrology Progress Note ---
Date of Encounter: 11/21/17 Time of Encounter: 08:10 - Assessment and Plan (1) Acute kidney injury Current Visit: No Status: Acute CRISTHIAN superimposed on CKD, most likely contrast nephropathy s/p [facility]. Renal fct seems to have plateaued and slow trend back to baseline. Documented urine output 1950cc. Avoid nephrotoxins. Will continue to monitor. If discharged home , will follow in office with labs. Subjective Principal diagnosis: Right foot cellulitis, Elevated trop Interval history: Sitting on edge of bed, eating breakfast. Denies chest pain. Wants to go home. Objective - Vital Signs Vital signs: Vital Signs Temp Pulse Resp BP Pulse Ox 11/21/17 06:37 97.7 F 70 14 128/46 97 11/21/17 04:14 98.1 F 71 16 147/84 100 11/20/17 22:50 98.8 F 73 19 146/63 96 11/20/17 19:00 97.7 F 75 16 147/60 99 11/20/17 17:00 72 17 148/62 98 11/20/17 16:00 68 17 166/83 98 11/20/17 15:45 97.8 F 11/20/17 15:00 65 18 129/51 96 11/20/17 14:00 67 20 167/85 98 11/20/17 13:00 70 18 165/68 98 11/20/17 12:00 68 20 91/63 99 11/20/17 11:38 97.7 F 11/20/17 11:00 67 20 174/73 100 11/20/17 10:00 68 20 124/87 100 Intake and Output 11/20/17 11/21/17 11/21/17 23:59 07:59 15:59 Intake Total Output Total 700 / 700 Balance -700 / -700 Intake: IV Fluids Ancef 1,000 MG In Water for inj . (sterile) 10 ML @ 200 mls/hr IVP Q12H [facility] Rx#:[id number] Output: Urine 700 / 700 Other: Weight 135.5 kg Blood Glucose* 144 Patient Weight 11/21/17 23:59 Weight 135.5 kg - General Appearance General appearance: Present: well-developed, well-nourished, appears started age EENT: Present: mucous membranes moist Neck: Present: no JVD Respiratory: Present: clear Cardiology: Present: edema, regular rate, regular rhythm Additional Comments: R>L Gastrointestinal: Present: normoactive bowel sounds, no tenderness Integumentary: Present: warm and dry Neurologic: Present: alert and oriented x3 Psychiatric: Present: mood/affect appropriate, cooperative - Lab 11/21/17 03:45 11/21/17 03:45 Most recent lab results Calcium 8.6 mg/dL (8.6-10.3) 11/21/17 03:45 Phosphorus 4.9 mg/dL (2.7-4.5) H 11/21/17 03:45 Magnesium 2.2 mg/dL (1.6-2.6) 11/21/17 03:45 - VTE Reasons for not Prescribing Prophylaxis: Not indicated-Anticoagulated or INR therapeutic Documentation of Mechanical Device: Intermittent pneumatic compression device Consult Discharge Plan - Plan Referrals: Lala Beatty MD [Primary Care Provider] - 11/21/17 2:00 pm ()
[2017-11-21] MEDS: Insulin LISPRO 300 UNITS/3 ML VIAL SQ SCH ×2 (09:46→12:18)
[2017-11-21] MEDS: *HR* Heparin 5,000 UNIT/ML VIAL SQ SCH (09:49)
[2017-11-21] MEDS: Aspirin 81 MG TAB.CHEW PO SCH (09:51)
[2017-11-21] MEDS: hydrALAZINE 25 MG TABLET PO SCH (09:51)
[2017-11-21] MEDS: *HR* Ticagrelor 90 MG TABLET PO SCH (09:51)
[2017-11-21] MEDS: Gabapentin 300 MG CAPSULE PO SCH (09:52)
[2017-11-21] MEDS: Famotidine 20 MG TABLET PO SCH (09:52)
[2017-11-21] MEDS: Furosemide 40 MG TABLET PO SCH (09:52)
[2017-11-21] MEDS: amLODIPine 5 MG TABLET PO SCH (09:52)
[2017-11-21] MEDS: Cyanocobalamin (B-12) 1,000 MCG TABLET PO SCH (09:53)
[2017-11-21] MEDS: Sennosides/Docusate Sodium TABLET PO SCH (09:53)
[2017-11-21] MEDS: Multivit/Ca/Min/Fe/FA 1 TAB TABLET PO SCH (09:53)
[2017-11-21] MEDS: Isosorbide MONOnitrate (24 HR) 30 MG TAB.ER.24H PO SCH (09:53)
[2017-11-21] MEDS: Metoprolol XL (24 HR) Succ 25 MG TAB.ER.24H PO SCH (09:53)
[2017-11-21] MEDS: Nystatin SUSP 5 ML UD.LIQ PO SCH ×2 (09:57→12:18)
[2017-11-21] MEDS: Insulin DETEMIR 100 UNIT/ML X5UNITS SQ SCH (10:14)
[2017-11-21] MEDS: *HR* HYDROcodone/Acet 5/325 mg TABLET PO PRN (10:19)
[2017-11-21] MEDS: Budesonide/Formoterol 160/4.5 MDI IH SCH (10:22)
[2017-11-21] MEDS: ceFAZolin 1,000 MG in Water for inj. (sterile) 20 ML 10 ML IVP SCH (10:33)
--- NOTE | 2017-11-21 12:07 | Discharge Summary ---
Date of Encounter: 11/21/17 Time of Encounter: 11:35 - Discharge Diagnosis (1) Acute respiratory failure with hypoxia Priority: Primary Status: Acute (2) Acute exacerbation of CHF (congestive heart failure) Priority: Primary Status: Acute Qualifiers: Congestive heart failure type: unspecified congestive heart failure type Qualified Code(s): I50.9 - Heart failure, unspecified (3) Psozw-[id number] kidney injury Priority: Secondary Status: Acute Qualifiers: Acute renal failure type: unspecified Chronic kidney disease stage: stage 4 (severe) Qualified Code(s): N17.9 - Acute kidney failure, unspecified; N18.4 - Chronic kidney disease, stage 4 (severe); N18.4 - Chronic kidney disease , stage 4 (severe); N18.4 - Chronic kidney disease, stage 4 (severe); N18.4 - Chronic kidney disease, stage 4 (severe) (4) Foot ulcer due to secondary DM Priority: Secondary Status: Acute (5) Anemia in CKD (chronic kidney disease) Priority: Secondary Status: Acute Qualifiers: Chronic kidney disease stage: stage 4 (severe) Qualified Code(s): N18.4 - Chronic kidney disease, stage 4 (severe); D63.1 - Anemia in chronic kidney disease; D63.1 - Anemia in chronic kidney disease (6) Cellulitis Priority: Secondary Status: Acute Qualifiers: Site of cellulitis: other site Qualified Code(s): L03.818 - Cellulitis of other sites (7) CAD (coronary artery disease) Priority: Secondary Status: Chronic Qualifiers: Coronary Disease-Associated Artery/Lesion type: [place] artery [place] vs. transplanted heart: [place] heart Associated angina: with unstable angina Qualified Code(s): I25.110 - Atherosclerotic heart disease of [place] coronary artery with unstable angina pectoris (8) Diabetes Priority: Secondary Status: Chronic Qualifiers: Diabetes mellitus type: type 2 Diabetes mellitus complication status: with circulatory complication Diabetes mellitus complication detail: with peripheral angiopathy without gangrene Diabetes mellitus chcf insulin use : with chcf use Qualified Code(s): E11.51 - Type 2 diabetes mellitus with diabetic peripheral angiopathy without gangrene; Z79.4 - MCC (current ) use of insulin (9) NSTEMI (non-ST elevated myocardial infarction) Priority: Primary Status: Acute (10) Sepsis Priority: Secondary Status: Resolved Qualifiers: Sepsis type: Streptococcus, other Qualified Code(s): A40.8 - Other streptococcal sepsis (11) Obesity (BMI 30-39.9) Priority: Secondary Status: Chronic (12) DVT prophylaxis Priority: Secondary Status: Acute - Discharge Medications Prescriptions: amLODIPine [Norvasc] 5 mg PO DAILY #30 tablet cephALEXin [Keflex] 250 mg PO TID #20 capsule Furosemide [Lasix] 40 mg PO DAILY #30 tablet Isosorbide MONOnitrate (24 HR) [Imdur] 30 mg PO DAILY #30 tab.er.24h Ticagrelor [Brilinta] 90 mg PO BID #60 tablet Home Medications: Allopurinol [Zyloprim] 100 mg PO DAILY 07/25/15 [History] Citalopram Hydrobromide [Celexa] 20 mg PO HS 07/25/15 [History] Insulin Glargine,Hum.rec.anlog [Lantus Solostar] 64 unit SQ BID 07/25/15 [ History] Multivitamin/Iron/Folic Acid [Centrum Complete Multivit Tab] 1 tab PO DAILY [History] Ranitidine HCl [Zantac] 150 mg PO BID 07/25/15 [History] Albuterol Sulfate [Albuterol Inhaler] 2 puff IH Q4HR PRN 07/26/15 [History] Hydrocodone/Acetaminophen [[place] 5-325 Tablet] 2 tab PO BID PRN 07/26/15 [ History] Budesonide/Formoterol 160/4.5 [Symbicort 160/4.5] 2 puff IH BID 07/24/16 [ History] Hydralazine HCl 25 mg PO TID 07/24/16 [History] Aspirin 81 mg PO DAILY tab.chew 08/22/16 [Rx] Atorvastatin [Lipitor] 80 mg PO HS tablet 08/22/16 [Rx] Cranberry Fruit Extract [Cranberry] 2,000 mg PO DAILY 08/29/16 [History] Cyanocobalamin (Vitamin B-12) [Vitamin B12] 2,500 mcg PO DAILY 08/29/16 [History ] Metoprolol XL (24 HR) Succ [Toprol Xl] 25 mg PO DAILY 08/29/16 [History] Insulin LISPRO [HumaLOG] 0 units SQ TIDWM PRN 11/15/17 [History] Furosemide [Lasix] 40 mg PO DAILY #30 tablet 11/21/17 [Rx] Gabapentin [Neurontin] 300 mg PO BID #0 11/21/17 [Rx] Isosorbide MONOnitrate (24 HR) [Imdur] 30 mg PO DAILY #30 tab.er.24h 11/21/17 [ Rx] Ticagrelor [Brilinta] 90 mg PO BID #60 tablet 11/21/17 [Rx] amLODIPine [Norvasc] 5 mg PO DAILY #30 tablet 11/21/17 [Rx] cephALEXin [Keflex] 250 mg PO TID #20 capsule 11/21/17 [Rx] Allergies/Adverse Reactions: 3 Allergy/AdvReac Type Severity Reaction Status Date / Time acetaminophen Allergy See Verified 11/14/17 18:50 [From Darvocet-N] Comments Zolpidem [From Ambien] Allergy See Verified 11/14/17 18:50 Comments pregabalin [From Lyrica] AdvReac Unknown jittery, Verified 11/14/17 18:50 altered mental status propoxyphene AdvReac Unknown jittery, Verified 11/14/17 18:50 altered mental status Procedures/tests Complete & Pending: Procedures Performed prior 72 hours Category Date Time Status MR lumbar spine wo con [MR] Routine MRI 11/18/17 10:55 Completed MR thoracic spine wo con [MR] Routine MRI 11/18/17 10:55 Completed Date of admission: 11/14/17 22:14 Primary care physician: Lala Beatty, Consults: 11/14/17 22:21 Consult to Podiatry [CONS] Routine Consulting Provider: [facility] Reason for Consult: NEW DRAINAGE FROM CHRONIC RT LEG STUMP Call Completed: No Consult to Wound Care [CONS] Routine Reason for Consult: DRESSING MANAGEMENT Call Completed: No 11/15/17 09:16 Consult to Cardiology [CONS] Routine Comment: Consulting Provider: Card[facility] Reason for Consult: NSTEMI Call Completed: Yes 11/17/17 07:58 Consult to Cardiac Rehabilitation-Phase1 [CONS] Routine Comment: Reason for Consult: NSTEMI Call Completed: No 11/17/17 15:50 Consult to Nephrology [CONS] Routine Consulting Provider: [facility] Reason for Consult: CKD 3, has seen Dr Galan in the past. Appears fluid overloaded. Unsure if he needs aggressive diuresis vs temp HD Call Completed: Yes Discharging clinician: Grace Sutton Anticipated date of discharge: 11/21/17 - Patient Status Disposition: Home Health Service Condition: Good Functional capacity at discharge: independent ambulation Overall status at discharge: patient is back to baseline - Ambulatory Orders Ambulatory Orders: Basic Metabolic Panel [CHEM] Time Frame: 1 Week, Facility: [facility], Location: Lab - Discharge Instructions Follow Up With: Lala Beatty MD [Primary Care Provider] - 11/21/17 2:00 pm () Additional Instructions: Please follow up with your primary care physician within five days after your discharge from the hospital. Please follow up with cardiology and nephrology within one week after your discharge from the hospital. Please follow up with podiatry within one to two weeks after your discharge from the hospital. Please obtain the prescribed lab work prior to your appointment with nephrology. Your home medications have been changed as follows: 1. Amlodipine has been increased to 5mg once a day 2. Imdur 30mg once a day has been added 3. Brilinta 90mg twice a day has been added, in addition to continuation of aspirin, Lipitor, and metoprolol. 4. Lasix 40mg once a day has been added 5. Continue oral antibiotics as prescribed 6. Gabapentin has been changed to twice a day due to your kidney function Closely monitor your blood pressure at home, and keep a log of these blood pressure readings daily. Take these blood pressure readings with you for your follow-up with your primary care physician. Continue foot dressing as recommended by podiatry Resume all other medications as prescribed by your primary care physician. - Diet and Activity Activity: as per physical therapy, wear oxygen at all times, wear oxygen at night Diet: diabetic diet, low fat, low cholesterol, low salt diet Hospital course: Mr. Levine is a 62 year old male with past medical history of CHF, COPD on long-term oxygen therapy, CAD, diabetes, hyperlipidemia, hypertension, CKD, CAD , status post right forefoot amputation, and status post left great toe amputation who was admitted for sepsis secondary to lower extremity cellulitis, acute respiratory failure with hypoxia secondary to CHF decompensation and NSTEMI. He was closely followed by cardiology, critical care pulmonology, and nephrology. He underwent left heart catheterization which reported moderate to severe atherosclerotic CAD. Status post CABG 2 of 3 patent bypass grafts, patent left main stent with patent ramus and circumflex. Medical optimization was recommended. Patient was started on Brilinta and Imdur in addition to continuation of his home medications. Patient was noted to have contrast- induced nephropathy status post left heart catheterization. He was started on a Lasix drip due to his CHF exacerbation by the lab[employer]. His CHF decompensation improved with return of his oxygenation to baseline home O2. His renal function started to improve and can be discharged from nephrology standpoint. He was also noted to be hypertensive due to which his home medications have been adjusted. He was continued on empiric antibiotics for his lower extremity cellulitis. There was a concern for infected site on his right foot status post amputation, and wound cultures were positive for group G Streptococcus. He was continued on IV antibiotics to which he clinically responded. Patient states he ambulates with a bruit and states he can benefit from home health services. He is refusing inpatient or ECF placement after discharge. Home O2 qualification testing will be done prior to discharge, as patient only uses oxygen at night at home. Patient is medically stable for discharge. Repeat blood pressure is 148/60. Patient will follow up with primary care physician, cardiology, podiatry, and nephrology after discharge. Patient demonstrates understanding of his diagnosis and agrees with the discharge care and plan. - Time Spent with Patient Total time spent providing and/or coordinating discharge services: Greater than 30 minutes - Constitutional Vitals: Temp Pulse Resp BP Pulse Ox 97.8 F 72 14 181/69 99 11/21/17 10:42 11/21/17 10:42 11/21/17 10:42 11/21/17 10:42 11/21/17 10:42 General appearance: Present: cooperative, A&O X 3, morbidly obese, no acute distress - Head Head exam: Present: atraumatic, normocephalic - Eye Eye exam: Present: conjuntiva pink, sclera anicteric - Respiratory Respiratory exam: Absent: rales, respiratory distress, wheezes - Cardiovascular Cardiovascular exam: Present: RRR, +S1, +S2. Absent: diastolic murmur, gallop, rubs, systolic murmur - GI/Abdominal GI/Abdominal exam: Present: normal bowel sounds, soft, no peritoneal signs. Absent: distended, tenderness - Extremities Exam Extremities exam: Present: warm, radial pulses palpable and symmetrical. Absent : calf tenderness Additional comments: Status post right forefoot amputation, status post left great toe amputation, erythema improved on right lower extremity. - Neurological Exam Neurological exam: Present: alert, oriented X3 - Psychiatric Psychiatric exam: Present: normal affect, normal mood - VTE Reasons for not Prescribing Prophylaxis: Not indicated-Anticoagulated or INR therapeutic Documentation of Mechanical Device: Intermittent pneumatic compression device
--- NOTE | 2017-11-21 12:18 | Physician Discharge Referral ---
Home Health/Hosp Referral Info Transfer to: Home Health Provider in Charge Post Discharge: PCP - Diagnosis (1) Acute respiratory failure with hypoxia Priority: Primary Status: Acute (2) Acute exacerbation of CHF (congestive heart failure) Priority: Primary Status: Acute (3) Pdidc-sa-xpsetwx kidney injury Priority: Secondary Status: Acute (4) Foot ulcer due to secondary DM Priority: Secondary Status: Acute (5) Anemia in CKD (chronic kidney disease) Priority: Secondary Status: Acute (6) Cellulitis Priority: Primary Status: Acute (7) CAD (coronary artery disease) Priority: Secondary Status: Chronic (8) Diabetes Priority: Secondary Status: Chronic (9) NSTEMI (non-ST elevated myocardial infarction) Priority: Primary Status: Acute (10) Sepsis Priority: Primary Status: Resolved (11) Obesity (BMI 30-39.9) Priority: Secondary Status: Chronic (12) DVT prophylaxis Priority: Secondary Status: Acute - Respiratory Orders Smoking Cessation: Smoking cessation has been advised. For more information, call the [place] Tobacco Quit Line at 3-967-AIOP-NOW. - Services Needed Following services are medically necessary services: Nursing, Home Health Aide, Physical Therapy, Occupational Therapy - Transfer Medications Prescriptions: amLODIPine [Norvasc] 5 mg PO DAILY #30 tablet cephALEXin [Keflex] 250 mg PO TID #20 capsule Furosemide [Lasix] 40 mg PO DAILY #30 tablet Isosorbide MONOnitrate (24 HR) [Imdur] 30 mg PO DAILY #30 tab.er.24h Ticagrelor [Brilinta] 90 mg PO BID #60 tablet Home Medications: Allopurinol [Zyloprim] 100 mg PO DAILY 07/25/15 [History] Citalopram Hydrobromide [Celexa] 20 mg PO HS 07/25/15 [History] Insulin Glargine,Hum.rec.anlog [Lantus Solostar] 64 unit SQ BID 07/25/15 [ History] Multivitamin/Iron/Folic Acid [Centrum Complete Multivit Tab] 1 tab PO DAILY [History] Ranitidine HCl [Zantac] 150 mg PO BID 07/25/15 [History] Albuterol Sulfate [Albuterol Inhaler] 2 puff IH Q4HR PRN 07/26/15 [History] Hydrocodone/Acetaminophen [[place] 5-325 Tablet] 2 tab PO BID PRN 07/26/15 [ History] Budesonide/Formoterol 160/4.5 [Symbicort 160/4.5] 2 puff IH BID 07/24/16 [ History] Hydralazine HCl 25 mg PO TID 07/24/16 [History] Aspirin 81 mg PO DAILY tab.chew 08/22/16 [Rx] Atorvastatin [Lipitor] 80 mg PO HS tablet 08/22/16 [Rx] Cranberry Fruit Extract [Cranberry] 2,000 mg PO DAILY 08/29/16 [History] Cyanocobalamin (Vitamin B-12) [Vitamin B12] 2,500 mcg PO DAILY 08/29/16 [History ] Metoprolol XL (24 HR) Succ [Toprol Xl] 25 mg PO DAILY 08/29/16 [History] Insulin LISPRO [HumaLOG] 0 units SQ TIDWM PRN 11/15/17 [History] Furosemide [Lasix] 40 mg PO DAILY #30 tablet 11/21/17 [Rx] Gabapentin [Neurontin] 300 mg PO BID #0 11/21/17 [Rx] Isosorbide MONOnitrate (24 HR) [Imdur] 30 mg PO DAILY #30 tab.er.24h 11/21/17 [ Rx] Ticagrelor [Brilinta] 90 mg PO BID #60 tablet 11/21/17 [Rx] amLODIPine [Norvasc] 5 mg PO DAILY #30 tablet 11/21/17 [Rx] cephALEXin [Keflex] 250 mg PO TID #20 capsule 11/21/17 [Rx] Allergies/Adverse Reactions: 3 Allergy/AdvReac Type Severity Reaction Status Date / Time acetaminophen Allergy See Verified 11/14/17 18:50 [From Darvocet-N] Comments Zolpidem [From Ambien] Allergy See Verified 11/14/17 18:50 Comments pregabalin [From Lyrica] AdvReac Unknown jittery, Verified 11/14/17 18:50 altered mental status propoxyphene AdvReac Unknown jittery, Verified 11/14/17 18:50 altered mental status Certification: Further, I certify that my clinical findings support that this patient is homebound (i.e. absences from home require considerable and taxing effort and are for medical reasons or anabaptism services or infrequently or short duration when for other reasons) because: Homebound Reason: Patient requires assistance of a person or device to safely leave home Attestation: My signature below is to certify that this patient is under my care and that I, or nurse practitioner, or a physician's assistant floor covering printer working with me, has a face-to -face encounter with this patient.
[2017-11-21 14:16] VITALS: BP 148/60
== END 2017-11-21 14:52 | disposition home health service (06) | DRG 871 ==
LOC: EMEROO 18:44 → 3NENU 18:44 → 2ANU 22:03 → SUATTDRO 22:14 → 2ANU 23:00 → ICNU 11-17 16:37 → 2NENU 11-20 18:29
PROVIDERS: ADMIT Nurse Practitioner; ATTEND Internal Medicine

== ENCOUNTER 2018-01-06 12:54 | Inpatient (IN) ==
--- NOTE | 2018-01-06 13:40 | Emergency Department Note ---
Disposition Clinical Impression: Pleural effusion, right, Acute respiratory failure with hypoxia CHF exacerbation Qualifiers: Congestive heart failure type: unspecified Qualified Code(s): I50.9 - Heart failure, unspecified Renal failure (ARF), acute on chronic Qualifiers: Acute renal failure type: unspecified Chronic kidney disease stage: stage 3 ( moderate) Qualified Code(s): N17.9 - Acute kidney failure, unspecified; N18.3 - Chronic kidney disease, stage 3 (moderate); N18.3 - Chronic kidney disease, stage 3 (moderate) Disposition: Admitted As Inpatient Condition: Fair Time of Disposition: 15:23 SOB HPI - General Chief Complaint: ED Shortness of Breath/Dyspnea Stated Complaint: LORIE Time Seen by Provider: 01/06/18 13:11 Source: patient Limitations: no limitations Nursing Notes Reviewed: Yes Vital Signs Reviewed: Yes - History of Present Illness 62-year-old male presents complaining shortness of breath is her COPD, CHF, oxygen dependent at night, not through the day. For the last couple days, the patient said worsening exertional dyspnea, and oxygen requirement throughout the day. Even light activities making the patient more short of breath, he was admitted back in [place] for CHF exacerbation at that time and "50 pounds" he states that he was on Bumex and then transitioned back to Lasix, and is also been gaining about 5-10 pounds over the last 2 weeks. Patient denies wheezing, cough, hemoptysis, fever, chills. He denies any chest pain or abdominal pain at this time. Pt Subjective Complaint: shortness of breath Onset (ago): day(s) Severity: moderate Consistency/Duration: intermittent Improves with: nothing Worsens with: nothing Known history of: COPD, congestive heart failure Associated symptoms: Reports: orthopnea. Denies: chest pain, pain with inspiration, fever, cough, sputum production, polyuria, polydipsia, nausea/ vomiting Treatment prior to arrival: none Cough present: Yes Cough Frequency: Intermittent Sputum production: Yes - Related Data Home Medications Medication Instructions Recorded Confirmed Allopurinol [Zyloprim] 100 mg PO DAILY 07/25/15 01/06/18 Citalopram Hydrobromide [Celexa] 20 mg PO HS 07/25/15 01/06/18 Insulin Glargine,Hum.rec.anlog 45 unit SQ BID 07/25/15 01/06/18 [Lantus Solostar] Multivitamin/Iron/Folic Acid 1 tab PO DAILY 07/25/15 01/06/18 [Centrum Complete Multivit Tab] Ranitidine HCl [Zantac] 150 mg PO BID 07/25/15 01/06/18 Albuterol Sulfate [Albuterol 2 puff IH Q4HR PRN 07/26/15 01/06/18 Inhaler] Hydrocodone/Acetaminophen [[place] 2 tab PO BID PRN 07/26/15 01/06/18 5-325 Tablet] Budesonide/Formoterol 160/4.5 2 puff IH BID 07/24/16 01/06/18 [Symbicort 160/4.5] Insulin LISPRO [HumaLOG] 0 units SQ TIDWM 11/15/17 01/06/18 Amlodipine Besylate 10 mg PO DAILY 01/06/18 01/06/18 Atorvastatin Calcium [Lipitor] 80 mg PO HS 01/06/18 01/06/18 Ergocalciferol (VITAMIN D2) 50,000 unit PO FR 01/06/18 01/06/18 [Vitamin D2] Gabapentin [Neurontin] 300 mg PO TID 01/06/18 01/06/18 Metoprolol XL (24 HR) Succ [Toprol 25 mg PO DAILY 01/06/18 01/06/18 XL] hydrALAZINE [HydrALAZINE] 25 mg PO TID 01/06/18 01/06/18 Previous Rx's Medication Instructions Recorded Aspirin 81 mg PO DAILY tab.chew 08/22/16 Furosemide [Lasix] 40 mg PO DAILY #30 tablet 11/21/17 Isosorbide MONOnitrate (24 HR) 30 mg PO DAILY #30 tab.er.24h 11/21/17 [Imdur] Ticagrelor [Brilinta] 90 mg PO BID #60 tablet 11/21/17 Allergies Allergy/AdvReac Type Severity Reaction Status Date / Time Zolpidem [From Ambien] Allergy See Verified 01/06/18 13:03 Comments pregabalin [From Lyrica] AdvReac Unknown jittery, Verified 01/06/18 13:03 altered mental status propoxyphene AdvReac Unknown jittery, Verified 01/06/18 13:03 altered mental status All systems ED: reviewed and negative except as stated. Review of Systems: As Per HPI Constitutional: Denies: fever, chills Eyes: Denies: eye pain ENT ED: Denies: ear pain Cardiovascular: Denies: chest pain, palpitations Respiratory: Reports: as per HPI, cough, dyspnea Gastrointestinal: Denies: abdominal pain, nausea, vomiting Genitourinary: Denies: urgency, dysuria Musculoskeletal: Denies: back pain Integumentary: Denies: rash Past Medical History - Past Medical History Attestation: Yes The following information was validated with the patient. Source: patient Medical history: Reports: arthritis, CHF, COPD, coronary artery disease, diabetes, hyperlipidemia, hypertension, myocardial infarction, peripheral artery disease, renal disease Surgical history: Reports: cholecystectomy, coronary bypass (CABG), orthopedic, other Psychiatric history: Reports: depression - Social History Smoking Status: Never smoker Smokeless Tobacco Status: No Alcohol use: Reports: none Drug use: Reports: none Physical Exam Constitutional: NAD, obese male on RA 95% Eyes: PERRLA, sclera anicteric ENT & Mouth: MMM Neck: normal inspection, neck is supple Resp: diminished at bases bilaterally CV: RRR, no m/g/r +3 pitting edema GI: normal inspection, soft, no guarding or rigidity Neuro: A&O3, CNII-XII grossly intact, CONTI Skin: on limited exam, skin intact with no rashes or lesions - General Limitations: no limitations General appearance: alert Course Course Narrative: This 62-year-old male with shortness of breath, patient multifactorial COPD versus CHF exacerbation, given peripheral diminished breath sounds, I suspect CHF will plan for diuresis. Dispo pending workup. - Reevaluation(s) Reevaluation #1: I reevaluated the patient, he had worsening exertional dyspnea, hypoxia with minimal activity, although his oxygen remains okay at bedside, the patient is requiring more and more oxygen with minimal exertion, as oxygen sats 87% so the patient be admitted to Dr. Esqueda's service, may need thoracentesis inpatient. Time: 15:28 Vital Signs Temperature 97.9 F 01/06/18 13:03 Pulse Rate 63 01/06/18 13:03 Respiratory Rate 28 01/06/18 13:03 Blood Pressure 172/73 01/06/18 13:03 O2 Sat by Pulse Oximetry 96 01/06/18 13:03 Temperature 97.9 F 01/06/18 13:03 Pulse Rate 66 01/06/18 14:24 Respiratory Rate 18 01/06/18 14:24 Blood Pressure 137/55 01/06/18 14:24 O2 Sat by Pulse Oximetry 96 01/06/18 13:03 Oxygen Delivery Oxygen Delivery Room Air Shortness of Breath/Dyspnea - MDM Narrative Medical decision making narrative: This documentation is done with the assistance of Dragon dictation. There may be inaccuracies in child support officer or spelling and typographical errors. I examined this patient and my medical decision-making was reviewed with the Resident Physician. I agree with the documented findings, disposition and treatment plan as described except to the extent set forth below. Patient seen and evaluated today by Dr. Vigil and myself, I agree with his evaluation and management plan, supervised care the patient's stay. Patient presents today with the need for an ABG. He has had some dyspnea. He has had history of dyspnea with CHF in the past. He says that he thinks he will be able to go home today. Finally get some labs first with see how things are doing and then if he still feels that way we can ambulate him and see how he does ambulate and significant systemic or not. He is in agreement with this plan. - Differential Diagnosis Likely: acute exacerbation of chronic obstructive airways disease, congestive heart failure, pneumonia, asthma with exacerbation, pulmonary embolism - Medical Records Medical records reviewed: Yes I reviewed the patient's medical records. - Lab Data Lab results reviewed: Yes I reviewed the patient's lab results. Result diagrams: 01/06/18 13:49 01/06/18 13:49 Lab Results 01/06/18 01/06/18 01/06/18 Range/Units 13:49 13:49 13:49 WBC 8.5 (4.3-11.1) K/mcL RBC 2.82 L (4.19-5.50) M/mcL Hgb 8.1 L (12.9-16.9) g/dL Hct 26.5 L (37.5-50.1) % MCV 94.0 (83.0-100.0) fL MCH 28.7 (28.0-33.3) pg MCHC 30.6 L (31.6-35.5) g/dL RDW 15.1 H (11.5-14.5) % Plt Count 173 (140-400) K/mcL MPV 10.1 (9.4-12.4) fL Immature Gran % 0.5 (0-4) % Seg Neutrophils % 76.4 % Lymphocytes % 12.0 % Monocytes % 8.1 % Eosinophils % 2.4 % Basophils % 0.6 % Neutrophils # 6.5 (1.6-8.9) K/mcL Lymphocytes # 1.0 (0.6-4.6) K/mcL Monocytes # 0.7 (0.0-1.3) K/mcL Eosinophils # 0.2 (0.0-0.6) K/mcL Basophils # 0.1 (0.0-0.2) K/mcL VBG pH (7.32-7.42) pH Units VBG pCO2 (41-51) mmHg VBG pO2 (25-50) mmHg VBG HCO3 (21-27) mEq/L Sodium 137 (136-145) mEq/L Potassium 4.4 (3.5-5.1) mEq/L Chloride 104 (98-107) mEq/L Carbon Dioxide 25 (23-29) mEq/L BUN 58 H (8-23) mg/dL Creatinine 3.21 H (0.70-1.30) mg/dL Est GFR ( Amer) 24 L (> 60) Est GFR (Non-Af Amer) 20 L (> 60) BUN/Creatinine Ratio 18 (6-26) Glucose 219 H (70-105) mg/dL Calculated Osmolality 307 H (280-300) Calcium 9.0 (8.6-10.3) mg/dL Troponin I < 0.03 (< 0.04) ng/mL B-Natriuretic Peptide (Less than 100) pg/mL 01/06/18 01/06/18 Range/Units 13:49 14:10 WBC (4.3-11.1) K/mcL RBC (4.19-5.50) M/mcL Hgb (12.9-16.9) g/dL Hct (37.5-50.1) % MCV (83.0-100.0) fL MCH (28.0-33.3) pg MCHC (31.6-35.5) g/dL RDW (11.5-14.5) % Plt Count (140-400) K/mcL MPV (9.4-12.4) fL Immature Gran % (0-4) % Seg Neutrophils % % Lymphocytes % % Monocytes % % Eosinophils % % Basophils % % Neutrophils # (1.6-8.9) K/mcL Lymphocytes # (0.6-4.6) K/mcL Monocytes # (0.0-1.3) K/mcL Eosinophils # (0.0-0.6) K/mcL Basophils # (0.0-0.2) K/mcL VBG pH 7.36 (7.32-7.42) pH Units VBG pCO2 43 (41-51) mmHg VBG pO2 128 H (25-50) mmHg VBG HCO3 24 (21-27) mEq/L Sodium (136-145) mEq/L Potassium (3.5-5.1) mEq/L Chloride (98-107) mEq/L Carbon Dioxide (23-29) mEq/L BUN (8-23) mg/dL Creatinine (0.70-1.30) mg/dL Est GFR ( Amer) (> 60) Est GFR (Non-Af Amer) (> 60) BUN/Creatinine Ratio (6-26) Glucose (70-105) mg/dL Calculated Osmolality (280-300) Calcium (8.6-10.3) mg/dL Troponin I (< 0.04) ng/mL B-Natriuretic Peptide 547 H (Less than 100) pg/mL - Radiology Data Radiology results reviewed: Yes I reviewed the patient's radiology results. Chest X-Ray 01/06/18 13:12 IMPRESSION: Increased moderate size right pleural effusion with adjacent compressive atelectasis. Suggestion of mild pulmonary edema D/ / jP Jackson MD / Pj Jackson MD Interpreting Provider: Pj Jackson MD - EKG Data EKG attestation: Yes I reviewed and interpreted this EKG. EKG shows normal: Reports: sinus rhythm Rate: Reports: normal (no evidence of ST segment elevations) Rhythm: Reports: NSR [place]/QRS: Reports: normal Interpretation: Reports: unchanged when compared to prior tracing (date) - Core Measures AMI Core Measures Followed: No
[2018-01-06] MEDS ORDERED: Furosemide 40 MG/4 ML VIAL IVP ONE (13:42)
[2018-01-06 14:02] LABS: Basophils # 0.1 K/mcL (0.0-0.2); Basophils % 0.6 %; Eosinophils # 0.2 K/mcL (0.0-0.6); Eosinophils % 2.4 %; Hematocrit 26.5 % (37.5-50.1); Hemoglobin 8.1 g/dL (12.9-16.9); Immature Granulocytes % 0.5 % (0-4); Mean Corpuscular HGB Conc 30.6 g/dL (31.6-35.5); Mean Corpuscular Hemoglobin 28.7 pg (28.0-33.3); Mean Platelet Volume 10.1 fL (9.4-12.4); Monocytes # 0.7 K/mcL (0.0-1.3); Monocytes % 8.1 %; Neutrophils # 6.5 K/mcL (1.6-8.9); Platelet Count 173 K/mcL (140-400); Red Blood Count 2.82 M/mcL (4.19-5.50); Red Cell Distribution Width 15.1 % (11.5-14.5); Segmented Neutrophils % 76.4 %
[2018-01-06 14:16] LABS: VBG HCO3 24 mEq/L (21-27); VBG PCO2 43 mmHg (41-51); VBG PH 7.36 pH Units (7.32-7.42); VBG PO2 128 mmHg (25-50)
[2018-01-06 14:32] LABS: Potassium 4.4 mEq/L (3.5-5.1)
--- NOTE | 2018-01-06 16:56 | Internal Med History&Physical ---
Date of Encounter: 01/06/18 Time of Encounter: 16:52 Assessment and Plan (1) Acute exacerbation of CHF (congestive heart failure) Current visit: Yes Status: Acute Acute on chronic diastolic heart failure start on IV Lasix and consult nephrology for diuresis management Qualifiers: Congestive heart failure type: diastolic Qualified Code(s): I50.33 - Acute on chronic diastolic (congestive) heart failure (2) Pleural effusion, right Current visit: Yes Status: Acute Moderate to large right pleural effusion probably due to congestive heart failure or consult interventional radiology for thoracentesis (3) Renal failure (ARF), acute on chronic Current visit: Yes Status: Chronic Patient has chronic kidney disease now with congestive heart failure with consult nephrology Qualifiers: Acute renal failure type: unspecified Chronic kidney disease stage: stage 3 (moderate) Qualified Code(s): N17.9 - Acute kidney failure, unspecified; N18.3 - Chronic kidney disease, stage 3 (moderate); N18.3 - Chronic kidney disease, stage 3 (moderate) (4) Anemia Current visit: No Status: Acute Chronic likely due to chronic kidney disease Qualifiers: Anemia type: other cause Other causes of anemia: other cause, not classified Qualified Code(s): D64.89 - Other specified anemias (5) Lower extremity edema Current visit: No Status: Acute Lower extremity edema from congestive heart failure (6) Diabetes Current visit: No Status: Chronic Chronic resume home medication and sliding scale Qualifiers: Diabetes mellitus type: type 2 Diabetes mellitus complication status: with circulatory complication Diabetes mellitus complication detail: with peripheral angiopathy without gangrene Diabetes mellitus penitentiary insulin use : with termite treater helper use Qualified Code(s): E11.51 - Type 2 diabetes mellitus with diabetic peripheral angiopathy without gangrene; Z79.4 - assisted (current ) use of insulin (7) Obesity (BMI 30-39.9) Current visit: No Status: Chronic Chronic Internal Medicine - H&P: HPI Chief complaint: sob Admitted From: Emergency Dept Plans for Post Hospital Care: Home History of present illness: Mr. Levine is a 62 year old male Patient with history of CAD had a CABG 3 vessel last cardiac cath November 17 with no intervention done saphenous vein graft to PDA was patent ESPINAL to LAD patent saphenous vein graft to ramus branch totally occluded patient also has history of diabetes, morbid obesity, high cholesterol, hypertension, CK D stage IV, chronic anemia, COPD, peripheral vascular disease. Patient presented emergency room with a 2 weeks of progressive shortness of breath PND and orthopnea and has gained about 5-10 pounds denies any productive cough no fever or chills no wheezing. no chest pain Exam consistent with congestive heart failure chest x ray also shows moderate right pleural effusion bnp 547 over extremity has 2-3+ pitting edema , creatinine at 3.1 Past Med Surg Social Fam HX - Past Medical History Medical history: arthritis, CHF, COPD, coronary artery disease, diabetes, hyperlipidemia, hypertension, myocardial infarction, peripheral artery disease, renal disease Psychiatric history: depression - Past Surgical History Surgical History: cholecystectomy, coronary bypass (CABG), orthopedic, other - Social History Smoking Status: Never smoker Smokeless Tobacco Status: No Alcohol use: none Drug use: none - Family History Father Living Status: Hx Family Cardiac Disorders: Yes Hx Family Respiratory Disorders: Yes (COPD) Hx Family Cancer: No Hx Family GI Disorders: No Hx Family Endocrine Disorder: No Hx Family Neuromuscular Disorders: No Hx Family Neurologic Disorders: No Hx Family HEENT Disorders: No Hx Family Autoimmune Disorders: No Internal Medicine - H&P: Meds Allopurinol [Zyloprim] 100 mg PO DAILY 07/25/15 [History] Citalopram Hydrobromide [Celexa] 20 mg PO HS 07/25/15 [History] Insulin Glargine,Hum.rec.anlog [Lantus Solostar] 45 unit SQ BID 07/25/15 [ History] Multivitamin/Iron/Folic Acid [Centrum Complete Multivit Tab] 1 tab PO DAILY [History] Ranitidine HCl [Zantac] 150 mg PO BID 07/25/15 [History] Albuterol Sulfate [Albuterol Inhaler] 2 puff IH Q4HR PRN 07/26/15 [History] Hydrocodone/Acetaminophen [[place] 5-325 Tablet] 2 tab PO BID PRN 07/26/15 [ History] Budesonide/Formoterol 160/4.5 [Symbicort 160/4.5] 2 puff IH BID 07/24/16 [ History] Aspirin 81 mg PO DAILY tab.chew 08/22/16 [Rx] Insulin LISPRO [HumaLOG] 0 units SQ TIDWM 11/15/17 [History] Furosemide [Lasix] 40 mg PO DAILY #30 tablet 11/21/17 [Rx] Isosorbide MONOnitrate (24 HR) [Imdur] 30 mg PO DAILY #30 tab.er.24h 11/21/17 [ Rx] Ticagrelor [Brilinta] 90 mg PO BID #60 tablet 11/21/17 [Rx] Amlodipine Besylate 10 mg PO DAILY 01/06/18 [History] Atorvastatin Calcium [Lipitor] 80 mg PO HS 01/06/18 [History] Ergocalciferol (VITAMIN D2) [Vitamin D2] 50,000 unit PO FR 01/06/18 [History] Gabapentin [Neurontin] 300 mg PO TID 01/06/18 [History] Metoprolol XL (24 HR) Succ [Toprol XL] 25 mg PO DAILY 01/06/18 [History] hydrALAZINE [HydrALAZINE] 25 mg PO TID 01/06/18 [History] 3 Allergy/AdvReac Type Severity Reaction Status Date / Time Zolpidem [From Ambien] Allergy See Verified 01/06/18 13:03 Comments pregabalin [From Lyrica] AdvReac Unknown jittery, Verified 01/06/18 13:03 altered mental status propoxyphene AdvReac Unknown jittery, Verified 01/06/18 13:03 altered mental status All Systems PM: A 10-system review of systems was performed and is negative for pertinent findings except as documented above in the HPI. - Constitutional Constitutional: fatigue, weight gain, no chills, no fever(s), no night sweats - EENT Eyes: no change in vision, no discharge, no pain, no photophobia Ears: no ear discharge, no ear pain, no tinnitus Nose, mouth and throat: no dysphagia, no nasal discharge, no neck pain, no sore throat - Cardiovascular Cardiovascular ROS IM: dyspnea, dyspnea on exertion, edema - Respiratory Respiratory: dyspnea, dyspnea on exertion - Gastrointestinal Gastrointestinal: no abdominal pain, no diarrhea, no hematemesis, no hematochezia, no melena, no nausea, no vomiting - Constitutional Vitals: Temp Pulse Resp BP Pulse Ox 97.8 F 69 17 165/62 94 01/06/18 16:40 01/06/18 16:40 01/06/18 16:40 01/06/18 16:40 01/06/18 16:40 - Eye Eye exam: Present: PERRL, conjuntiva pink, sclera anicteric Pupils: Present: PERRL - Respiratory Respiratory exam: Present: decreased breath sounds, rales, rhonchi - Cardiovascular Cardiovascular exam: Present: systolic murmur - GI/Abdominal GI/Abdominal exam: Present: normal bowel sounds, soft, no peritoneal signs. Absent: distended, tenderness - Extremities Exam Extremities exam: Present: pedal edema Internal Med - H&P Results - Labs CBC & Chem 7: 01/06/18 13:49 01/06/18 13:49
[2018-01-06] MEDS ORDERED: Naloxone 0.4 MG/ML INJ IVP PRN (17:05)
[2018-01-06] MEDS ORDERED: traMADol 50 MG TABLET PO PRN (17:05)
[2018-01-06] MEDS ORDERED: Acetaminophen 325 MG TABLET PO PRN (17:05)
[2018-01-06] MEDS ORDERED: *HR* HYDROcodone/Acet 5/325 mg TABLET PO PRN (17:08)
[2018-01-06] MEDS: hydrALAZINE 25 MG TABLET PO SCH (20:25)
[2018-01-06] MEDS: Insulin DETEMIR 100 UNIT/ML X5UNITS SQ SCH (20:25)
[2018-01-06] MEDS: *HR* Ticagrelor 90 MG TABLET PO SCH (20:25)
[2018-01-06] MEDS: Budesonide/Formoterol 160/4.5 MDI IH SCH (20:32)
[2018-01-06] MEDS ORDERED: Gabapentin 300 MG CAPSULE PO SCH (21:00)
[2018-01-06] MEDS ORDERED: Furosemide 40 MG/4 ML VIAL IVP SCH (21:00)
--- NOTE | 2018-01-07 05:04 | Electrocardiograph Report ---
[facility] Test Date: 2018-01-06 Pat Name: Eric Levine Department: 102 Room: 2A23 Gender: M Tile Setter Supervisor: : [id number] Requested By: Josh Diallo Order Number: [id number] Reading MD: Gabriele Byrne MD Measurements Intervals [place] Rate: 67 P: 25 CO: 207 QRS: -14 QRSD: 104 T: 83 QT: 425 QTc: 441 Interpretive Statements SINUS RHYTHM NONSPECIFIC ST & T-WAVE ABNORMALITY Electronically Signed On 01-07-2018 5:03:06 EST by Gabriele Byrne MD
[2018-01-07 05:13] LABS: Basophils # 0.1 K/mcL (0.0-0.2); Basophils % 0.7 %; Eosinophils # 0.2 K/mcL (0.0-0.6); Eosinophils % 2.6 %; Hematocrit 26.8 % (37.5-50.1); Hemoglobin 8.1 g/dL (12.9-16.9); Immature Granulocytes % 0.5 % (0-4); Lymphocytes % 11.5 %; Mean Corpuscular HGB Conc 30.2 g/dL (31.6-35.5); Mean Corpuscular Hemoglobin 28.4 pg (28.0-33.3); Mean Platelet Volume 10.5 fL (9.4-12.4); Monocytes # 0.7 K/mcL (0.0-1.3); Monocytes % 8.3 %; Neutrophils # 6.6 K/mcL (1.6-8.9); Platelet Count 190 K/mcL (140-400); Red Blood Count 2.85 M/mcL (4.19-5.50); Red Cell Distribution Width 15.1 % (11.5-14.5); Segmented Neutrophils % 76.4 %
[2018-01-07 05:43] LABS: Albumin 3.9 g/dL (3.5-5.7); Albumin/Globulin Ratio 1.1 (1.1-2.2); Bilirubin,Total 0.5 mg/dL (0.3-1.0); Calcium 9.1 mg/dL (8.6-10.3); Chol/HDL Ratio 3.6 (0-4.9); Globulin 3.4 g/dL (2.4-3.5); Magnesium 2.1 mg/dL (1.6-2.6); Potassium 4.4 mEq/L (3.5-5.1); Total Protein 7.3 g/dL (6.4-8.9)
[2018-01-07] MEDS ORDERED: D5% in Water 1,000 ML IVC PRN (08:09)
[2018-01-07] MEDS ORDERED: Dextrose Gel 15 GM/37.5 ML TUBE PO PRN ×2 (08:09)
[2018-01-07] MEDS ORDERED: *HR* Dextrose 50 % in Water (Syg) 50 ML SYRINGE IVP PRN (08:09)
--- NOTE | 2018-01-07 08:44 | Nephrology Consult Note ---
Date of Encounter: 01/07/18 Time of Encounter: 08:42 Assessment and Plan (1) Chronic kidney disease, stage IV (severe) Current Visit: No Status: Acute The patient has stage IV in the setting of type 2 diabetes and hypertension. His renal function is stable. He presents with worsening exertional dyspnea in the setting of a new right pleural effusion. This may be related to congestive heart failure or may be related to another etiology. Patient is currently undergoing diuresis. I am going to make some changes to his antihypertensive regimen to improve his blood pressure control. Patient likely would benefit from a thoracentesis. (2) Benign hypertension with chronic kidney disease, stage IV Current Visit: Yes Status: Acute (3) Pleural effusion Current Visit: Yes Status: Acute (4) CAD (coronary artery disease) Current Visit: No Status: Chronic Qualifiers: Coronary Disease-Associated Artery/Lesion type: [place] artery [place] vs. transplanted heart: [place]q heart Associated angina: without angina Qualified Code(s): I25.10 - Atherosclerotic heart disease of alutiiq coronary artery without angina pectoris (5) Type 2 diabetes mellitus with diabetic chronic kidney disease Current Visit: No Status: Acute Qualifiers: Diabetes mellitus group home insulin use: with terminal manager use Chronic kidney disease stage: stage 4 (severe) Qualified Code(s): E11.22 - Type 2 diabetes mellitus with diabetic chronic kidney disease; N18.4 - Chronic kidney disease, stage 4 (severe); N18.4 - Chronic kidney disease, stage 4 (severe); N18.4 - Chronic kidney disease, stage 4 (severe); N18.4 - Chronic kidney disease, stage 4 (severe); Z79.4 - FPC (current) use of insulin; Z79.4 - FPC ( current) use of insulin; Z79.4 - FPC (current) use of insulin; Z79.4 - FPC (current) use of insulin (6) Anemia in CKD (chronic kidney disease) Current Visit: No Status: Acute Qualifiers: Chronic kidney disease stage: stage 4 (severe) Qualified Code(s): N18.4 - Chronic kidney disease, stage 4 (severe); D63.1 - Anemia in chronic kidney disease; D63.1 - Anemia in chronic kidney disease History of Present Illness - History of Present Illness This is a 62-year-old male who is followed as an outpatient for stage IV chronic kidney disease related to type 2 diabetes and hypertension. Patient's creatinine is currently at his baseline at 3.10 with a GFR of 20. Patient was admitted to the hospital with complaints of a several week history of exertional dyspnea. He also has been experiencing some orthopnea. He does have a history of coronary artery disease and is status post CABG as well as stent placement. His last cardiac catheterization was in October. Patient denies any chest pain. Patient has been stable from a renal standpoint. He does have some lower extremity swelling which is actually relatively good for him. His chest x-ray shows a moderate to large right pleural effusion which is a new development compared to his last chest x-ray back in October. Past Med Surg Social Fam HX - Past Medical History Medical history: arthritis, CHF, COPD, coronary artery disease, diabetes, hyperlipidemia, hypertension, myocardial infarction, peripheral artery disease, renal disease Psychiatric history: depression - Past Surgical History Surgical History: cholecystectomy, coronary bypass (CABG), orthopedic, other - Social History Smoking Status: Never smoker Smokeless Tobacco Status: No Alcohol use: none Drug use: none - Family History Father Living Status: Hx Family Cardiac Disorders: Yes Hx Family Respiratory Disorders: Yes (COPD) Hx Family Cancer: No Hx Family GI Disorders: No Hx Family Endocrine Disorder: No Hx Family Neuromuscular Disorders: No Hx Family Neurologic Disorders: No Hx Family HEENT Disorders: No Hx Family Autoimmune Disorders: No Medications and Allergies Allopurinol [Zyloprim] 100 mg PO DAILY 07/25/15 [History] Citalopram Hydrobromide [Celexa] 20 mg PO HS 07/25/15 [History] Insulin Glargine,Hum.rec.anlog [Lantus Solostar] 45 unit SQ BID 07/25/15 [ History] Multivitamin/Iron/Folic Acid [Centrum Complete Multivit Tab] 1 tab PO DAILY [History] Ranitidine HCl [Zantac] 150 mg PO BID 07/25/15 [History] Albuterol Sulfate [Albuterol Inhaler] 2 puff IH Q4HR PRN 07/26/15 [History] Hydrocodone/Acetaminophen [[place] 5-325 Tablet] 2 tab PO BID PRN 07/26/15 [ History] Budesonide/Formoterol 160/4.5 [Symbicort 160/4.5] 2 puff IH BID 07/24/16 [ History] Aspirin 81 mg PO DAILY tab.chew 08/22/16 [Rx] Insulin LISPRO [HumaLOG] 0 units SQ TIDWM 11/15/17 [History] Furosemide [Lasix] 40 mg PO DAILY #30 tablet 11/21/17 [Rx] Isosorbide MONOnitrate (24 HR) [Imdur] 30 mg PO DAILY #30 tab.er.24h 11/21/17 [ Rx] Ticagrelor [Brilinta] 90 mg PO BID #60 tablet 11/21/17 [Rx] Amlodipine Besylate 10 mg PO DAILY 01/06/18 [History] Atorvastatin Calcium [Lipitor] 80 mg PO HS 01/06/18 [History] Ergocalciferol (VITAMIN D2) [Vitamin D2] 50,000 unit PO FR 01/06/18 [History] Gabapentin [Neurontin] 300 mg PO TID 01/06/18 [History] Metoprolol XL (24 HR) Succ [Toprol XL] 25 mg PO DAILY 01/06/18 [History] hydrALAZINE [HydrALAZINE] 25 mg PO TID 01/06/18 [History] 3 Allergy/AdvReac Type Severity Reaction Status Date / Time Zolpidem [From Ambien] Allergy See Verified 01/06/18 13:03 Comments pregabalin [From Lyrica] AdvReac Unknown jittery, Verified 01/06/18 13:03 altered mental status propoxyphene AdvReac Unknown jittery, Verified 01/06/18 13:03 altered mental status Review of Systems Constitutional: as per HPI Eyes: bilateral: blurred vision (patient denies), diplopia (patient denies) Nose, mouth and throat: no dizziness, no headache(s) Cardiovascular: dyspnea, dyspnea on exertion, edema, orthopnea, no chest pain, no palpitations Respiratory: dyspnea, dyspnea on exertion Gastrointestinal: no abdominal pain, no change in bowel habits Musculoskeletal: abnormal gait, no muscle weakness, no numbness Musculoskeletal: bilateral: foot pain Integumentary: skin ulcer, no hirsutism, no striae Neurological: as per HPI, weakness Psychiatric: no depression, no difficulty concentrating Endocrine: as per HPI Exam - Vital Signs Vital signs: Initial Vital Signs Temp Pulse Resp BP Pulse Ox 97.9 F 63 28 172/73 96 01/06/18 13:03 01/06/18 13:03 01/06/18 13:03 01/06/18 13:03 01/06/18 13:03 Vital Signs - Last 8 Hours Temp Pulse Resp BP Pulse Ox 01/07/18 05:00 98 F 68 20 172/67 97 Intake and Output 01/06/18 01/07/18 01/07/18 23:59 07:59 15:59 Intake Total 240 / 240 Output Total 515 / 515 Balance -275 / -275 Intake: Oral 240 / 240 Output: Urine 515 / 515 Other: # Voids 2 Weight 130.4 kg Blood Glucose* 214 Patient Weight 01/07/18 23:59 Weight 130.4 kg - General Appearance Exam: The patient is alert and oriented. He is in no acute distress. Blood pressure 172/67. Lungs exhibit diminished breath sounds in the right base. Otherwise lungs are clear. There are no rales or wheezing or rhonchi. Heart regular rate and rhythm with a 2/6 systolic ejection murmur. Abdomen shows normal bowel sounds appraise masses adenomegaly or tenderness. There is 1-2+ lower extremity swelling which is relatively normal for the patient. Results - Lab Results 01/07/18 04:48 01/07/18 04:48 Most recent lab results Calcium 9.1 mg/dL (8.6-10.3) 01/07/18 04:48 Magnesium 2.1 mg/dL (1.6-2.6) 01/07/18 04:48 Consult Discharge Plan - Plan Referrals: Lala Beatty MD [Primary Care Provider] -
[2018-01-07] MEDS ORDERED: Metoprolol XL (24 HR) Succ 25 MG TAB.ER.24H PO SCH (09:00)
--- NOTE | 2018-01-07 09:25 | IR Progress Note ---
Vital Signs: Vital Signs/O2 Sat, Most Current Temp Pulse Resp BP Pulse Ox 98 F 68 20 172/67 97 01/07/18 05:00 01/07/18 05:00 01/07/18 05:00 01/07/18 05:00 01/07/18 05:00 Recent Labs: Lab Results 01/07/18 01/07/18 04:48 04:48 WBC 8.6 RBC 2.85 L Hgb 8.1 L Hct 26.8 L MCV 94.0 MCH 28.4 MCHC 30.2 L RDW 15.1 H Plt Count 190 MPV 10.5 Neutrophils # 6.6 Lymphocytes # 1.0 Monocytes # 0.7 Eosinophils # 0.2 Basophils # 0.1 Sodium 139 Potassium 4.4 Chloride 105 Carbon Dioxide 26 BUN 58 H Creatinine 3.10 H Est GFR ( Amer) 25 L Est GFR (Non-Af Amer) 20 L BUN/Creatinine Ratio 19 Glucose 103 Calcium 9.1 Magnesium 2.1 Assessment and Plan Right pleural effusion referred for thoracentesis. Ultrasound is limited given pt's body habitus, but no drainable right pleural effusion. Recommend CT chest for further evaluation.
[2018-01-07] MEDS: *HR* Ticagrelor 90 MG TABLET PO SCH ×2 (10:47→21:22)
[2018-01-07] MEDS: Isosorbide MONOnitrate (24 HR) 30 MG TAB.ER.24H PO SCH (10:47)
[2018-01-07] MEDS: Furosemide 40 MG/4 ML VIAL IVP SCH ×2 (10:47→17:27)
[2018-01-07] MEDS: Aspirin 81 MG TAB.CHEW PO SCH (10:47)
[2018-01-07] MEDS: hydrALAZINE 25 MG TABLET PO SCH ×3 (10:47→21:13)
[2018-01-07] MEDS: Insulin DETEMIR 100 UNIT/ML X5UNITS SQ SCH ×2 (10:48→21:14)
[2018-01-07] MEDS: amLODIPine 5 MG TABLET PO SCH (10:48)
[2018-01-07] MEDS: Multivit/Ca/Min/Fe/FA 1 TAB TABLET PO SCH (10:48)
[2018-01-07] MEDS: Famotidine 20 MG TABLET PO SCH (10:48)
[2018-01-07] MEDS: Gabapentin 300 MG CAPSULE PO SCH ×2 (10:48→21:13)
[2018-01-07] MEDS: Metoprolol XL (24 HR) Succ 25 MG TAB.ER.24H PO SCH (10:48)
[2018-01-07] MEDS: Budesonide/Formoterol 160/4.5 MDI IH SCH ×2 (11:14→19:57)
[2018-01-07] MEDS: Insulin LISPRO 300 UNITS/3 ML VIAL SQ SCH ×3 (11:36→21:22)
[2018-01-07 12:44] LABS: % Iron Saturation 13 % (20-55); Ferritin 611 ng/ml (20-250); Iron 31 mcg/dL (65-175); Transferrin 168 mg/dL (203-362)
--- NOTE | 2018-01-07 13:09 | Internal Med Progress Note ---
Date of Encounter: 01/07/18 Time of Encounter: 13:06 - Assessment and plan (1) Acute exacerbation of CHF (congestive heart failure) Current Visit: Yes Status: Acute Assessment and plan: continue Lasix IV BID fluid restriction diet monitor I/Os, daily weight O2 supplementation as needed CT chest to further evaluate b/l Pleural effusions will continue to closely monitor respiratory status Qualifiers: Congestive heart failure type: diastolic Qualified Code(s): I50.33 - Acute on chronic diastolic (congestive) heart failure (2) Acute respiratory failure with hypoxia Current Visit: Yes Status: Acute Assessment and plan: Secondary to Acute CHF decompensation continue IV diuresis O2 supplementation as needed (3) Hfdvc-so-ucnewnr kidney injury Current Visit: No Status: Acute Assessment and plan: Renal function back to baseline nephrology on board and consultation appreciated will continue IV lasix will continue to monitor renal function Qualifiers: Acute renal failure type: unspecified Chronic kidney disease stage: stage 4 (severe) Qualified Code(s): N17.9 - Acute kidney failure, unspecified; N18.4 - Chronic kidney disease, stage 4 (severe); N18.4 - Chronic kidney disease , stage 4 (severe); N18.4 - Chronic kidney disease, stage 4 (severe); N18.4 - Chronic kidney disease, stage 4 (severe) (4) Anemia in CKD (chronic kidney disease) Current Visit: No Status: Chronic Assessment and plan: H&H low but acceptable no acute bleeding reported at this time continue to monitor Qualifiers: Chronic kidney disease stage: stage 4 (severe) Qualified Code(s): N18.4 - Chronic kidney disease, stage 4 (severe); D63.1 - Anemia in chronic kidney disease; D63.1 - Anemia in chronic kidney disease (5) DVT prophylaxis Current Visit: No Status: Acute Assessment and plan: Heparin SQ (6) Type 2 diabetes mellitus with diabetic chronic kidney disease Current Visit: No Status: Chronic Assessment and plan: Sliding scale insulin algorithm monitor FS and BG ADA diet Qualifiers: Diabetes mellitus long-term insulin use: with long-term use Chronic kidney disease stage: stage 4 (severe) Qualified Code(s): E11.22 - Type 2 diabetes mellitus with diabetic chronic kidney disease; N18.4 - Chronic kidney disease, stage 4 (severe); N18.4 - Chronic kidney disease, stage 4 (severe); N18.4 - Chronic kidney disease, stage 4 (severe); N18.4 - Chronic kidney disease, stage 4 (severe); Z79.4 - intermediate school teacher (current) use of insulin; Z79.4 - retirement ( current) use of insulin; Z79.4 - intermediate school teacher (current) use of insulin; Z79.4 - retirement (current) use of insulin (7) Morbid obesity with BMI of 40.0-44.9, adult Current Visit: Yes Status: Chronic - Subjective Interval history: Patient seen and examined at bedside. Resting in bed and saturating well on room air. States he has been having difficulty breathing with ambulation or minimal exertion. IR was consulted for thoracentesis however US was nonspecific for the effusion and CT chest was recommended. Will continue IV lasix at this time. Pt in agreement. Pt states he has had to intermittently use oxygen at home during the day but he is only supposed to be on home oxygen at bedtime. - Constitutional Vitals: Temp Pulse Resp BP Pulse Ox 97.7 F 70 18 176/75 93 01/07/18 10:49 01/07/18 10:49 01/07/18 11:15 01/07/18 10:49 01/07/18 11:15 General appearance: Present: A&O X 3, morbidly obese, no acute distress, answers questions appropriately - Head Head exam: Present: atraumatic, normocephalic - Eye Eye exam: Present: conjuntiva pink, sclera anicteric - Respiratory Respiratory exam: Absent: respiratory distress, wheezes (bibasilar rales ) - Cardiovascular Cardiovascular exam: Present: RRR, +S1, +S2. Absent: diastolic murmur, gallop, rubs, systolic murmur - GI/Abdominal GI/Abdominal exam: Present: normal bowel sounds, soft, no peritoneal signs. Absent: distended, tenderness - Extremities Exam Extremities exam: Present: warm, radial pulses palpable and symmetrical (pedal edema. S/p right foot amputation, s/p left great toe amputation ). Absent: calf tenderness - Neurological Exam Neurological exam: Present: alert, oriented X3 - Psychiatric Psychiatric exam: Present: normal affect, normal mood Internal Medicine: Result - Labs CBC & Chem 7: 01/07/18 04:48 01/07/18 04:48 Labs: Short CBC 01/07/18 Range/Units 04:48 WBC 8.6 (4.3-11.1) K/mcL Hgb 8.1 L (12.9-16.9) g/dL Hct 26.8 L (37.5-50.1) % Plt Count 190 (140-400) K/mcL Neutrophils # 6.6 (1.6-8.9) K/mcL BMP 01/07/18 04:48 Sodium 139 Potassium 4.4 Chloride 105 Carbon Dioxide 26 BUN 58 H Creatinine 3.10 H Glucose 103 Calcium 9.1 Cardiac Enzymes 01/06/18 01/06/18 01/07/18 Range/Units 20:24 23:01 04:48 Troponin I 0.03 0.03 0.03 (< 0.04) ng/mL Liver Function 01/07/18 Range/Units 04:48 Total Bilirubin 0.5 (0.3-1.0) mg/dL AST 20 (13-39) Units/L ALT 15 (7-52) Units/L Alkaline Phosphatase 173 H (34-104) Units/L Albumin 3.9 (3.5-5.7) g/dL - Impressions Impressions Chest Ultrasound 01/07/18 00:00 IMPRESSION: 1. No appreciable right pleural effusion seen with ultrasound. No thoracentesis performed. I would recommend CT scan of the chest for further evaluation. D/ / Tone Carlson MD / Tone Carlson MD Interpreting Provider: Tone Carlson MD Consult Discharge Plan - Plan Referrals: Lala Beatty MD [Primary Care Provider] - (WEB REQUEST SENT ON 01/07/18)
[2018-01-07] MEDS: *HR* Heparin 5,000 UNIT/ML VIAL SQ SCH (17:26)
[2018-01-07] MEDS ORDERED: GuaiFENesin Liq 200 MG/10 ML UDC PO PRN (21:11)
[2018-01-07] MEDS: *HR* HYDROcodone/Acet 5/325 mg TABLET PO PRN (21:12)
[2018-01-08 04:34] LABS: Basophils # 0.1 K/mcL (0.0-0.2); Basophils % 0.7 %; Eosinophils # 0.2 K/mcL (0.0-0.6); Eosinophils % 2.8 %; Hematocrit 26.5 % (37.5-50.1); Immature Granulocytes % 0.4 % (0-4); Lymphocytes # 1.5 K/mcL (0.6-4.6); Lymphocytes % 17.9 %; Mean Corpuscular HGB Conc 30.2 g/dL (31.6-35.5); Mean Corpuscular Hemoglobin 28.2 pg (28.0-33.3); Mean Corpuscular Volume 93.3 fL (83.0-100.0); Mean Platelet Volume 10.4 fL (9.4-12.4); Monocytes # 0.9 K/mcL (0.0-1.3); Monocytes % 10.3 %; Neutrophils # 5.6 K/mcL (1.6-8.9); Platelet Count 185 K/mcL (140-400); Red Blood Count 2.84 M/mcL (4.19-5.50); Red Cell Distribution Width 15.2 % (11.5-14.5); Segmented Neutrophils % 67.9 %
[2018-01-08 04:57] LABS: Magnesium 2.1 mg/dL (1.6-2.6); Phosphorous 4.1 mg/dL (2.7-4.5)
[2018-01-08 04:58] LABS: Albumin 3.9 g/dL (3.5-5.7); Albumin/Globulin Ratio 1.1 (1.1-2.2); Bilirubin,Total 0.5 mg/dL (0.3-1.0); Calcium 9.1 mg/dL (8.6-10.3); Globulin 3.4 g/dL (2.4-3.5); Potassium 3.9 mEq/L (3.5-5.1); Total Protein 7.3 g/dL (6.4-8.9)
[2018-01-08] MEDS: *HR* Heparin 5,000 UNIT/ML VIAL SQ SCH ×2 (05:42→16:43)
[2018-01-08] MEDS: Budesonide/Formoterol 160/4.5 MDI IH SCH ×2 (08:09→23:03)
--- NOTE | 2018-01-08 08:44 | Nephrology Progress Note ---
Date of Encounter: 01/08/18 Time of Encounter: 08:35 - Assessment and Plan (1) Chronic kidney disease, stage IV (severe) Current Visit: No Status: Acute Renal fct stable, at baseline creat 3.11. IR unable to do thorocentesis>right side chronic pleural effusion with evidence of loculation. SBP 130-160. Will start on Lisinopril 10 mg daily. Subjective Interval history: Watching tv. States is breathing easier and would like to go home. Objective - Vital Signs Vital signs: Vital Signs Temp Pulse Resp BP Pulse Ox 01/08/18 07:38 97.6 F 62 18 164/79 95 01/08/18 04:12 97.4 F L 62 17 122/69 90 01/07/18 23:33 97.8 F 69 17 133/53 96 01/07/18 20:07 98 F 70 17 162/73 93 01/07/18 19:57 18 94 01/07/18 15:39 98.1 F 67 16 147/62 97 01/07/18 11:15 18 93 01/07/18 10:49 97.7 F 70 14 176/75 95 Intake and Output 01/07/18 01/08/18 01/08/18 23:59 07:59 15:59 Other: Weight 133.073 kg Blood Glucose* 189 70 Patient Weight 01/08/18 23:59 Weight 133.073 kg - General Appearance General appearance: Present: well-developed, well-nourished, appears started age , obese EENT: Present: mucous membranes moist Neck: Present: no JVD Respiratory: Present: clear Cardiology: Present: edema, regular rate, regular rhythm Additional Comments: mild LE edema Gastrointestinal: Present: normoactive bowel sounds, no tenderness Integumentary: Present: warm and dry Neurologic: Present: alert and oriented x3 - Lab 01/08/18 03:37 01/08/18 03:37 Most recent lab results Calcium 9.1 mg/dL (8.6-10.3) 01/08/18 03:37 Phosphorus 4.1 mg/dL (2.7-4.5) 01/08/18 03:37 Magnesium 2.1 mg/dL (1.6-2.6) 01/08/18 03:37 Consult Discharge Plan - Plan Referrals: Lala Beatty MD [Primary Care Provider] - 01/14/18 9:30 am ()
[2018-01-08] MEDS: *HR* Ticagrelor 90 MG TABLET PO SCH ×2 (08:50→20:37)
[2018-01-08] MEDS: Isosorbide MONOnitrate (24 HR) 30 MG TAB.ER.24H PO SCH (08:50)
[2018-01-08] MEDS: Famotidine 20 MG TABLET PO SCH (08:51)
[2018-01-08] MEDS: hydrALAZINE 25 MG TABLET PO SCH ×3 (08:51→20:37)
[2018-01-08] MEDS: Multivit/Ca/Min/Fe/FA 1 TAB TABLET PO SCH (08:51)
[2018-01-08] MEDS: Aspirin 81 MG TAB.CHEW PO SCH (08:51)
[2018-01-08] MEDS: Gabapentin 300 MG CAPSULE PO SCH ×2 (08:52→20:37)
[2018-01-08] MEDS: Insulin DETEMIR 100 UNIT/ML X5UNITS SQ SCH ×2 (08:52→20:38)
[2018-01-08] MEDS: Metoprolol XL (24 HR) Succ 25 MG TAB.ER.24H PO SCH (08:52)
[2018-01-08] MEDS: amLODIPine 5 MG TABLET PO SCH (08:52)
[2018-01-08] MEDS: Furosemide 40 MG/4 ML VIAL IVP SCH ×2 (08:53→16:43)
[2018-01-08] MEDS: Insulin LISPRO 300 UNITS/3 ML VIAL SQ SCH ×4 (08:56→20:38)
--- NOTE | 2018-01-08 15:35 | Internal Med Progress Note ---
Date of Encounter: 01/08/18 Time of Encounter: 13:55 - Assessment and plan (1) Acute exacerbation of CHF (congestive heart failure) Current Visit: Yes Status: Acute Assessment and plan: continue Lasix IV BID fluid restriction diet monitor I/Os, daily weight O2 supplementation as needed will continue to closely monitor respiratory status Qualifiers: Congestive heart failure type: diastolic Qualified Code(s): I50.33 - Acute on chronic diastolic (congestive) heart failure (2) Acute respiratory failure with hypoxia Current Visit: Yes Status: Acute Assessment and plan: Secondary to Acute CHF decompensation continue IV diuresis O2 supplementation as needed (3) Pbxqe-sv-xmhguyk kidney injury Current Visit: No Status: Acute Assessment and plan: Renal function back to baseline nephrology on board and consultation appreciated will continue IV lasix will continue to monitor renal function Qualifiers: Acute renal failure type: unspecified Chronic kidney disease stage: stage 4 (severe) Qualified Code(s): N17.9 - Acute kidney failure, unspecified; N18.4 - Chronic kidney disease, stage 4 (severe); N18.4 - Chronic kidney disease , stage 4 (severe); N18.4 - Chronic kidney disease, stage 4 (severe); N18.4 - Chronic kidney disease, stage 4 (severe) (4) Anemia in CKD (chronic kidney disease) Current Visit: No Status: Chronic Assessment and plan: H&H low but acceptable no acute bleeding reported at this time continue to monitor Qualifiers: Chronic kidney disease stage: stage 4 (severe) Qualified Code(s): N18.4 - Chronic kidney disease, stage 4 (severe); D63.1 - Anemia in chronic kidney disease; D63.1 - Anemia in chronic kidney disease (5) DVT prophylaxis Current Visit: No Status: Acute Assessment and plan: Heparin SQ (6) Type 2 diabetes mellitus with diabetic chronic kidney disease Current Visit: No Status: Chronic Assessment and plan: Sliding scale insulin algorithm monitor FS and BG ADA diet Qualifiers: Diabetes mellitus buttermaker insulin use: with detention use Chronic kidney disease stage: stage 4 (severe) Qualified Code(s): E11.22 - Type 2 diabetes mellitus with diabetic chronic kidney disease; N18.4 - Chronic kidney disease, stage 4 (severe); N18.4 - Chronic kidney disease, stage 4 (severe); N18.4 - Chronic kidney disease, stage 4 (severe); N18.4 - Chronic kidney disease, stage 4 (severe); Z79.4 - buttermaker (current) use of insulin; Z79.4 - buttermaker ( current) use of insulin; Z79.4 - halfway (current) use of insulin; Z79.4 - halfway (current) use of insulin (7) Morbid obesity with BMI of 40.0-44.9, adult Current Visit: Yes Status: Chronic - Subjective Interval history: Patient seen and examined at bedside. Pt reports of improvement in his symptoms compared to previous day. CT chest reported new loculated effusion however unable to drain as per IR. Pt clinically improving on IV lasix, will continue IV lasix for one more day Tentative d/c in am - Constitutional Vitals: Temp Pulse Resp BP Pulse Ox 97.5 F L 61 16 146/68 98 01/08/18 10:58 01/08/18 10:58 01/08/18 10:58 01/08/18 10:58 01/08/18 14:13 General appearance: Present: A&O X 3, morbidly obese, no acute distress, answers questions appropriately - Head Head exam: Present: atraumatic, normocephalic - Respiratory Respiratory exam: Absent: respiratory distress, wheezes (scattered rales ) - Cardiovascular Cardiovascular exam: Present: RRR, +S1, +S2. Absent: diastolic murmur, gallop, rubs, systolic murmur - GI/Abdominal GI/Abdominal exam: Present: normal bowel sounds, soft, no peritoneal signs. Absent: distended, tenderness - Extremities Exam Extremities exam: Present: warm, radial pulses palpable and symmetrical. Absent : calf tenderness Additional comments: S/p right foot amputation, s/p left great toe amputation - Neurological Exam Neurological exam: Present: alert, oriented X3 - Psychiatric Psychiatric exam: Present: normal affect, normal mood Internal Medicine: Result - Labs CBC & Chem 7: 01/08/18 03:37 01/08/18 03:37 Labs: Short CBC 01/08/18 Range/Units 03:37 WBC 8.3 (4.3-11.1) K/mcL Hgb 8.0 L (12.9-16.9) g/dL Hct 26.5 L (37.5-50.1) % Plt Count 185 (140-400) K/mcL Neutrophils # 5.6 (1.6-8.9) K/mcL BMP 01/08/18 03:37 Sodium 140 Potassium 3.9 Chloride 106 Carbon Dioxide 26 BUN 56 H Creatinine 3.11 H Glucose 92 Calcium 9.1 Liver Function 01/08/18 Range/Units 03:37 Total Bilirubin 0.5 (0.3-1.0) mg/dL AST 12 L (13-39) Units/L ALT 14 (7-52) Units/L Alkaline Phosphatase 170 H (34-104) Units/L Albumin 3.9 (3.5-5.7) g/dL Consult Discharge Plan - Plan Referrals: Lala Beatty MD [Primary Care Provider] - 01/14/18 9:30 am ()
[2018-01-08] MEDS: *HR* HYDROcodone/Acet 5/325 mg TABLET PO PRN (16:42)
[2018-01-09 03:37] LABS: Basophils # 0.1 K/mcL (0.0-0.2); Basophils % 0.6 %; Eosinophils # 0.3 K/mcL (0.0-0.6); Eosinophils % 3.5 %; Hematocrit 26.9 % (37.5-50.1); Hemoglobin 8.2 g/dL (12.9-16.9); Immature Granulocytes % 0.5 % (0-4); Lymphocytes # 1.7 K/mcL (0.6-4.6); Lymphocytes % 20.9 %; Mean Corpuscular HGB Conc 30.5 g/dL (31.6-35.5); Mean Corpuscular Hemoglobin 28.5 pg (28.0-33.3); Mean Corpuscular Volume 93.4 fL (83.0-100.0); Mean Platelet Volume 10.4 fL (9.4-12.4); Monocytes # 0.8 K/mcL (0.0-1.3); Monocytes % 10.2 %; Neutrophils # 5.2 K/mcL (1.6-8.9); Platelet Count 172 K/mcL (140-400); Red Blood Count 2.88 M/mcL (4.19-5.50); Red Cell Distribution Width 14.9 % (11.5-14.5); Segmented Neutrophils % 64.3 %
[2018-01-09 03:57] LABS: Calcium 9.1 mg/dL (8.6-10.3); Phosphorous 4.4 mg/dL (2.7-4.5); Potassium 4.1 mEq/L (3.5-5.1)
[2018-01-09] MEDS: *HR* Heparin 5,000 UNIT/ML VIAL SQ SCH (05:28)
[2018-01-09] MEDS: Insulin LISPRO 300 UNITS/3 ML VIAL SQ SCH ×2 (07:51→11:44)
[2018-01-09] MEDS: Budesonide/Formoterol 160/4.5 MDI IH SCH (07:52)
[2018-01-09] MEDS: Furosemide 40 MG/4 ML VIAL IVP SCH (08:50)
--- NOTE | 2018-01-09 09:28 | Nephrology Progress Note ---
Date of Encounter: 01/09/18 Time of Encounter: 09:00 - Assessment and Plan (1) Chronic kidney disease, stage IV (severe) Current Visit: No Status: Acute Renal fct stable, at baseline creat 3.15. IR unable to do thorocentesis>right side chronic pleural effusion with evidence of loculation. Improved SBP 120- 130. Lisinopril 10 mg daily started yesterday. Subjective Interval history: Watching tv. States is breathing easier and would like to go home. Objective - Vital Signs Vital signs: Vital Signs Temp Pulse Resp BP Pulse Ox 01/09/18 08:09 16 92 01/09/18 07:01 97.6 F 61 16 123/69 92 01/09/18 04:08 97.3 F L 63 17 124/60 95 01/09/18 00:04 97.5 F L 74 17 146/73 94 01/08/18 19:28 97.5 F L 61 17 135/52 99 01/08/18 16:40 97.6 F 63 16 141/59 95 01/08/18 14:13 98 01/08/18 10:58 97.5 F L 61 16 146/68 98 Intake and Output 01/08/18 01/09/18 01/09/18 23:59 07:59 15:59 Intake Total 240 / 240 Balance 240 / 240 Intake: Oral 240 / 240 Other: Meal Breakfast Percent of Meal Consumed 100% # Voids 1 1 # Bowel Movements 1 Weight 133.1 kg Blood Glucose* 218 86 Patient Weight 01/09/18 23:59 Weight 133.1 kg - General Appearance General appearance: Present: well-developed, well-nourished, appears started age , obese EENT: Present: mucous membranes moist Neck: Present: no JVD Respiratory: Present: clear Cardiology: Present: edema, regular rate, regular rhythm Additional Comments: mild LE Gastrointestinal: Present: normoactive bowel sounds, no tenderness Integumentary: Present: warm and dry Neurologic: Present: alert and oriented x3 - Lab 01/09/18 03:11 01/09/18 03:11 Most recent lab results Calcium 9.1 mg/dL (8.6-10.3) 01/09/18 03:11 Phosphorus 4.4 mg/dL (2.7-4.5) 01/09/18 03:11 Magnesium 2.0 mg/dL (1.6-2.6) 01/09/18 03:11 Consult Discharge Plan - Plan Referrals: Lala Beatty MD [Primary Care Provider] - 01/14/18 9:30 am ()
[2018-01-09] MEDS: Gabapentin 300 MG CAPSULE PO SCH (11:39)
[2018-01-09] MEDS: Aspirin 81 MG TAB.CHEW PO SCH (11:39)
[2018-01-09] MEDS: *HR* Ticagrelor 90 MG TABLET PO SCH (11:39)
[2018-01-09] MEDS: Multivit/Ca/Min/Fe/FA 1 TAB TABLET PO SCH (11:40)
[2018-01-09] MEDS: Metoprolol XL (24 HR) Succ 25 MG TAB.ER.24H PO SCH (11:40)
[2018-01-09] MEDS: Famotidine 20 MG TABLET PO SCH (11:41)
[2018-01-09] MEDS: Isosorbide MONOnitrate (24 HR) 30 MG TAB.ER.24H PO SCH (11:41)
[2018-01-09] MEDS: amLODIPine 5 MG TABLET PO SCH (11:41)
[2018-01-09] MEDS: hydrALAZINE 25 MG TABLET PO SCH (11:42)
[2018-01-09] MEDS: Insulin DETEMIR 100 UNIT/ML X5UNITS SQ SCH (11:42)
--- NOTE | 2018-01-09 12:41 | Discharge Summary ---
Date of Encounter: 01/09/18 Time of Encounter: 12:15 - Discharge Diagnosis (1) Acute exacerbation of CHF (congestive heart failure) Priority: Primary Status: Acute Qualifiers: Qualified Code(s): I50.33 - Acute on chronic diastolic (congestive) heart failure (2) Acute respiratory failure with hypoxia Priority: Primary Status: Acute (3) [id number] kidney injury Priority: Secondary Status: Resolved Qualifiers: Acute renal failure type: unspecified Chronic kidney disease stage: stage 4 (severe) Qualified Code(s): N17.9 - Acute kidney failure, unspecified; N18.4 - Chronic kidney disease, stage 4 (severe); N18.4 - Chronic kidney disease , stage 4 (severe); N18.4 - Chronic kidney disease, stage 4 (severe); N18.4 - Chronic kidney disease, stage 4 (severe) (4) Anemia in CKD (chronic kidney disease) Priority: Secondary Status: Chronic Qualifiers: Chronic kidney disease stage: stage 4 (severe) Qualified Code(s): N18.4 - Chronic kidney disease, stage 4 (severe); D63.1 - Anemia in chronic kidney disease; D63.1 - Anemia in chronic kidney disease (5) DVT prophylaxis Priority: Secondary Status: Acute (6) Type 2 diabetes mellitus with diabetic chronic kidney disease Priority: Secondary Status: Chronic Qualifiers: Diabetes mellitus residential insulin use: with termite treater helper use Chronic kidney disease stage: stage 4 (severe) Qualified Code(s): E11.22 - Type 2 diabetes mellitus with diabetic chronic kidney disease; N18.4 - Chronic kidney disease, stage 4 (severe); N18.4 - Chronic kidney disease, stage 4 (severe); N18.4 - Chronic kidney disease, stage 4 (severe); N18.4 - Chronic kidney disease, stage 4 (severe); Z79.4 - rat exterminator (current) use of insulin; Z79.4 - assisted ( current) use of insulin; Z79.4 - assisted (current) use of insulin; Z79.4 - assisted (current) use of insulin (7) Morbid obesity with BMI of 40.0-44.9, adult Priority: Secondary Status: Chronic - Discharge Medications Prescriptions: Furosemide [Lasix] 40 mg PO BID #60 tablet Lisinopril [Zestril] 10 mg PO DAILY #30 tablet Home Medications: Allopurinol [Zyloprim] 100 mg PO DAILY 07/25/15 [History] Citalopram Hydrobromide [Celexa] 20 mg PO HS 07/25/15 [History] Insulin Glargine,Hum.rec.anlog [Lantus Solostar] 45 unit SQ BID 07/25/15 [ History] Multivitamin/Iron/Folic Acid [Centrum Complete Multivit Tab] 1 tab PO DAILY [History] Ranitidine HCl [Zantac] 150 mg PO BID 07/25/15 [History] Albuterol Sulfate [Albuterol Inhaler] 2 puff IH Q4HR PRN 07/26/15 [History] Hydrocodone/Acetaminophen [[place] 5-325 Tablet] 2 tab PO BID PRN 07/26/15 [ History] Budesonide/Formoterol 160/4.5 [Symbicort 160/4.5] 2 puff IH BID 07/24/16 [ History] Aspirin 81 mg PO DAILY tab.chew 08/22/16 [Rx] Insulin LISPRO [HumaLOG] 0 units SQ TIDWM 11/15/17 [History] Isosorbide MONOnitrate (24 HR) [Imdur] 30 mg PO DAILY #30 tab.er.24h 11/21/17 [ Rx] Ticagrelor [Brilinta] 90 mg PO BID #60 tablet 11/21/17 [Rx] Amlodipine Besylate 10 mg PO DAILY 01/06/18 [History] Atorvastatin Calcium [Lipitor] 80 mg PO HS 01/06/18 [History] Ergocalciferol (VITAMIN D2) [Vitamin D2] 50,000 unit PO FR 01/06/18 [History] Gabapentin [Neurontin] 300 mg PO TID 01/06/18 [History] Metoprolol XL (24 HR) Succ [Toprol Xl] 25 mg PO DAILY 01/06/18 [History] hydrALAZINE [HydrALAZINE] 25 mg PO TID 01/06/18 [History] Furosemide [Lasix] 40 mg PO BID #60 tablet 01/09/18 [Rx] Lisinopril [Zestril] 10 mg PO DAILY #30 tablet 01/09/18 [Rx] Allergies/Adverse Reactions: 3 Allergy/AdvReac Type Severity Reaction Status Date / Time Zolpidem [From Ambien] Allergy See Verified 01/06/18 13:03 Comments pregabalin [From Lyrica] AdvReac Unknown jittery, Verified 01/06/18 13:03 altered mental status propoxyphene AdvReac Unknown jittery, Verified 01/06/18 13:03 altered mental status Procedures/tests Complete & Pending: Procedures Performed prior 72 hours Category Date Time Status CT chest wo con [CT] Stat Cat Scan 01/07/18 13:06 Completed IR US chest [IR] Routine Exams 01/07/18 Completed Date of admission: 01/06/18 17:05 Primary care physician: Lala Beatty, Consults: 01/06/18 17:11 Consult to Interventional Radiology [CONS] Routine Consulting Provider: Radiology Interventional Cols Reason for Consult: thoracentesis Time Notified: 17:12 Call Completed: No Discharging clinician: Grace Sutton Anticipated date of discharge: 01/09/18 - Patient Status Disposition: Home, Self-Care Condition: Good Functional capacity at discharge: independent ambulation Overall status at discharge: patient is back to baseline - Discharge Instructions Follow Up With: Lala Beatty MD [Primary Care Provider] - 01/14/18 9:30 am () Dashawn Santos [Partnered Physician] - 01/21/18 12:30 pm (Please follow up as schedule...) Additional Instructions: Please follow up with your primary care physician within five days after your discharge from the hospital. Please follow up with cardiology within one to two weeks after your discharge from the hospital. Your home dose of Lasix has been increased to 40mg twice a day. Lisinopril 10mg once a day has been added to your home medications for better blood pressure control. Closely monitor your blood pressure at home, hold blood pressure medications if your systolic blood pressure is less than 100. Resume all other medications as prescribed by your primary care physician. Continue to maintain a fluid restriction diet (2L/day). - Diet and Activity Activity: resume usual activities as tolerated, wear oxygen at night Diet: diabetic diet, low fat, low cholesterol, low salt diet Hospital course: Mr. Levine is a 62 year old male with PMH Of CHF, CAD, COPD on LTOT, HTN, HLD , PAD, CKD who was admitted for management of acute respiratory distress secondary to CHF exacerbation. He was started on IV lasix to which he responded appropriately. He reported of needing oxygen during the day prior to his hospitalization, as he only has home oxygen at night. He was not able to complete the six minute walk test due to his physical debilitation(s/p foot amputation) however the duration he did walk, his O2 saturation did not drop below 88%. He is requesting a portable oxygen tank upon discharge as he gets extremely short of breath with his walk from the parking lot to the the medical center. manager research and development on board and trying to set up portable oxygen prior to discharge. AT this time he is back to his baseline respiratory status. He will be discharged to home with follow up with pCP and cardiology. - Time Spent with Patient Total time spent providing and/or coordinating discharge services: Greater than 30 minutes - Constitutional Vitals: Temp Pulse Resp BP Pulse Ox 97.3 F L 63 14 156/74 99 01/09/18 11:22 01/09/18 11:22 01/09/18 11:22 01/09/18 11:22 01/09/18 11:22 General appearance: Present: A&O X 3, morbidly obese, no acute distress, answers questions appropriately - Head Head exam: Present: atraumatic, normocephalic - Eye Eye exam: Present: conjuntiva pink, sclera anicteric - Respiratory Respiratory exam: Absent: rales (equal air entry bilaterally ), respiratory distress, wheezes - Cardiovascular Cardiovascular exam: Present: RRR, +S1, +S2. Absent: diastolic murmur, gallop, rubs, systolic murmur - GI/Abdominal GI/Abdominal exam: Present: normal bowel sounds, soft, no peritoneal signs. Absent: distended, tenderness - Extremities Exam Extremities exam: Present: warm, radial pulses palpable and symmetrical (s/p distal right foot amputation ). Absent: calf tenderness - Neurological Exam Neurological exam: Present: alert, oriented X3 - Psychiatric Psychiatric exam: Present: normal affect, normal mood
[2018-01-09 13:22] VITALS: BP 136/67
== END 2018-01-09 15:55 | disposition home or self-care (01) | DRG 291 ==
LOC: EMEROO 12:54 → 2ANU 12:54
PROVIDERS: ADMIT Internal Medicine; ATTEND Internal Medicine